=== PATIENT | female | born 1945 | race Caucasian/White ===

== ENCOUNTER → 2016-03-26 | Outpatient (CLI) | payer MEDICARE, MEDICAID ==
[~2016-03-26] MED LIST: /ADVA50050 IN; BABY81CH OR; CULTURELLE PO; CULTURELLE PR; LEVO100T7 OR; LEVO112T OR; NITR0.4S SL; PAROXETINE HCL PO; RANI150C OR; ZOCO40TA OR; [UNRECOGNIZED DRUG - OTHER]; [UNRECOGNIZED DRUG - OTHER] INH; [UNRECOGNIZED DRUG - OTHER] PO
[2016-03-26 18:22] LABS: CREATININE FOR GFR 1.11 MG/DL (0.55-1.02); GLOMERULAR FILTRATION RATE 51.7 (>39)
== END ==
LOC: M SMT 13:37
PROVIDERS: ATTEND Pain Medicine Interventional Pain Medicine
DX: M48.06 Spinal stenosis, lumbar region (principal); M96.1 Postlaminectomy syndrome, not elsewhere classified; M43.16 Spondylolisthesis, lumbar region; M47.816 Spondylosis without myelopathy or radiculopathy, lumbar region; M51.36 Other intervertebral disc degeneration, lumbar region

== ENCOUNTER → 2016-04-24 | Outpatient (CLI) | payer MEDICARE, MEDICAID ==
[~2016-04-24] VITALS: Ht 160 cm; Wt 97.5 kg
[~2016-04-24] MED LIST changes: +ADV250INH INH; +AMLO5TAB2 PO; +ASPI81TA21 PO; +ATOR40TA PO; +BUSP5TA PO; +CULT10CA2 PO; +FERR325T PO; +FISH1000 PO; +FLON1SPR; +GLIM2TAB PO; +IMODLIQ6 PO; +LEVO100T5 PO; +LIDOCAINE 2% INJ 100 MG/5 ML SDV (FOR ANES.) As Ordered ONE; +NEUR100C PO; +NS 1,000 ML IV SCH; +OMEP40CA2 PO; +PROPOFOL 200 MG/20 ML VIAL As Ordered ONE; +RAMI10CA PO; +SLOWTAB2 PO; +TIZA4CAP3 PO; +VENL75TA2 PO; +VITA10006 PO; +VITA100072 PO; +VITA200016 PO; +[UNRECOGNIZED DRUG - CODE] PO; +fentaNYL 100 MCG/2 ML INJECTION (J3010) As Ordered ONE
--- NOTE | 2016-04-24 15:58 | ROOR ---
Patient Name: Enriqueta Shook Procedure Date: 04/24/2016 3:27 PM Date of : 1945 Age: 71 Room: [facility] Gender: Female Note Status: Finalized Procedure: Upper GI endoscopy Indications: Dysphagia, Gastroparesis Providers: Hernandez OQUENDO MD Referring MD: Linda MONTES DE OCA DO Requesting Provider: Medicines: Monitored Anesthesia Care Complications: No immediate complications. Procedure: Pre-Anesthesia Assessment: - The heart rate, respiratory rate, oxygen saturations, blood pressure, adequacy of pulmonary ventilation, and response to care were monitored throughout the procedure. The Endoscope was introduced through the mouth, and advanced to the second part of duodenum. The upper GI endoscopy was accomplished without difficulty. The patient tolerated the procedure well. Findings: A small area of extrinsic compression was found at the cricopharyngeus. The exam of the esophagus was otherwise normal. The scope was withdrawn. Dilation was performed in the entire esophagus with a Huston dilator with mild resistance at 56 Fr. The exam was otherwise without abnormality. Impression: - Mild extrinsic compression at the cricopharyngeus. - Dilation performed in the entire esophagus with 54 and 56 Huston dilator. - The examination was otherwise normal. - No specimens collected. Recommendation: - Observe patient's clinical course. - I anticipate no further need for intervention. - Gastroparesis diet: - Eat smaller, more frequent meals throughout the day. - Low fat diet. - Liquid/soft foods are tolerated better than solid foods. - Low fiber/well cooked vegetables are tolerated better than high fiber/fibrous foods/raw vegetables. - Avoid medications that inhibit gastric/intestinal motility such as narcotic medications. Hernandez Oquendo MD Hernandez OQUENDO MD 04/24/2016 3:57:53 PM This report has been signed electronically. Number of Addenda: 0 Note Initiated On: 04/24/2016 3:27 PM Estimated Blood Loss: Estimated blood loss: none.
[2016-04-24 16:16] VITALS: BP 137/62
== END | disposition home or self-care (01) ==
LOC: M OPP 14:09
PROVIDERS: ATTEND Internal Medicine Gastroenterology
DX: K22.2 Esophageal obstruction (principal); K31.84 Gastroparesis; I10 Essential (primary) hypertension; E78.00 Pure hypercholesterolemia, unspecified; E11.9 Type 2 diabetes mellitus without complications; D64.9 Anemia, unspecified; M19.90 Unspecified osteoarthritis, unspecified site; F33.9 Major depressive disorder, recurrent, unspecified; F41.9 Anxiety disorder, unspecified; J45.909 Unspecified asthma, uncomplicated; J44.9 Chronic obstructive pulmonary disease, unspecified; G47.30 Sleep apnea, unspecified; I25.2 Old myocardial infarction; Z86.73 Personal history of transient ischemic attack (TIA), and cerebral infarction without residual deficits; Z97.2 Presence of dental prosthetic device (complete) (partial); Z87.891 Personal history of nicotine dependence; Z79.899 Other long term (current) drug therapy; Z79.51 Long term (current) use of inhaled steroids; Z88.0 Allergy status to penicillin; Z88.1 Allergy status to other antibiotic agents; Z88.2 Allergy status to sulfonamides
CPT/HCPCS: 43235; 43450; 99156; 99157; J3010

== ENCOUNTER → 2016-06-02 | Outpatient (CLI) | payer MEDICARE, MEDICAID ==
[~2016-06-02] MED LIST changes: -LIDOCAINE 2% INJ 100 MG/5 ML SDV (FOR ANES.) As Ordered ONE; -NS 1,000 ML IV SCH; -PROPOFOL 200 MG/20 ML VIAL As Ordered ONE; -fentaNYL 100 MCG/2 ML INJECTION (J3010) As Ordered ONE
[2016-06-02 14:33] LABS: BASO % 0.5 % (0.0-1.0); EOS # 0.2 K/mm3 (0.0-0.50); EOS % 2.3 % (0.0-3.0); LARGE UNSTAINED CELL # 0.1 K/mm3 (0.0-0.4); LYMPH # 1.3 K/mm3 (1.5-4.5); LYMPH % 17.4 % (24.0-44.0); MEAN CORPUSCULAR HEMOGLOBIN 30.2 pg (27.0-33.0); MEAN CORPUSCULAR VOLUME 94.5 fl (80.0-96.0); MONO # 0.4 K/mm3 (0.0-0.8); MONO % 5.8 % (0.0-5.0); NEUTROPHILS # 5.3 K/mm3 (1.8-7.7); PLATELET COUNT, AUTOMATED 299 k/mm3 (150-450); RED CELL DISTRIBUTION WIDTH 13.5 % (11.5-14.5); WHITE BLOOD COUNT 7.2 K/mm3 (4.0-10.0)
[2016-06-02 14:38] LABS: ALBUMIN 3.3 GM/DL (3.2-5.2); ALKALINE PHOSPHATASE 100 U/L (45-117); ALT/SGPT 15 U/L (12-78); ANION GAP 9 MEQ/L (8-16); AST/SGOT 10 U/L (15-37); BILIRUBIN,TOTAL 0.3 MG/DL (0.2-1.0); BLOOD UREA NITROGEN 15 MG/DL (7-18); CALCIUM LEVEL 8.8 MG/DL (8.8-10.2); CARBON DIOXIDE LEVEL 26 MEQ/L (21-32); CHLORIDE LEVEL 107 MEQ/L (98-107); CHOLESTEROL LEVEL 144 MG/DL (<200); CREATININE FOR GFR 0.92 MG/DL (0.55-1.02); FREE T4 1.18 NG/DL (0.76-1.46); GLOMERULAR FILTRATION RATE > 60.0 (>39); GLUCOSE, FASTING 119 MG/DL (83-110); POTASSIUM SERUM 4.8 MEQ/L (3.5-5.1); SODIUM LEVEL 142 MEQ/L (136-145); TOTAL PROTEIN 6.6 GM/DL (6.4-8.2); TRIGLYCERIDES LEVEL 164 MG/DL (<150)
== END ==
LOC: M SMT 09:26
PROVIDERS: ATTEND Family Medicine
DX: Z00.00 Encounter for general adult medical examination without abnormal findings (principal); E11.42 Type 2 diabetes mellitus with diabetic polyneuropathy; E03.9 Hypothyroidism, unspecified

== ENCOUNTER 2016-06-23 20:48 | Emergency (ER) | payer MEDICARE, MEDICAID ==
[~2016-06-23] VITALS: Ht 160 cm; Wt 90.7 kg
[2016-06-23] MEDS ORDERED: [UNRECOGNIZED DRUG - CODE] PO (21:10)
[2016-06-23] MEDS ORDERED: LEVO750T33 PO (21:11)
[2016-06-23] MEDS ORDERED: IPRATROPIUM 0.5MG/ALBUTEROL 2.5MG INH SOL UD 3ML (DUONEB)(J7620) NEB ONE (22:45)
[2016-06-23] MEDS ORDERED: predniSONE 20 MG TAB PO ONE (23:45)
[2016-06-23] MEDS ORDERED: PRED10TA PO (23:45)
[2016-06-24 00:16] VITALS: BP 132/65
--- NOTE | 2016-06-24 08:55 | REP ---
CHEST X-RAY: Two views. HISTORY: Cough. Comparison chest x-ray February 26, 2016. FINDINGS: There has been progressive opacification in the right upper lobe infiltrate which is otherwise persistent when compared with the February 26, 2016 prior chest x-ray. There is some fullness in the right hilus and the findings are suspicious for right upper lobe malignancy with right hilar lymphadenopathy. Recommend chest CT, preferably with IV contrast for further evaluation. The left lung remains clear. Pleural angles are sharp. The heart is not enlarged. No significant bony abnormality is seen. IMPRESSION: Persistent, indeed progressive infiltrate right upper lobe with probable right hilar and/or mediastinal adenopathy. Recommend chest CT with IV contrast. Signed by Adrian Salcedo MD 06/24/2016 01:37 P
--- NOTE | 2016-06-25 07:10 | ED PDOC ---
Post-Departure Follow-Up dr novoa faxed formal report of cxr for fu Vin Teresa MD Jun 25, 2016 07:10
== END 2016-06-24 00:17 | disposition home or self-care (01) ==
LOC: M ED 22:03
DX: J20.9 Acute bronchitis, unspecified (principal); J44.1 Chronic obstructive pulmonary disease with (acute) exacerbation; I10 Essential (primary) hypertension; I51.9 Heart disease, unspecified; G47.30 Sleep apnea, unspecified; K58.9 Irritable bowel syndrome, unspecified; E11.9 Type 2 diabetes mellitus without complications; F17.200 Nicotine dependence, unspecified, uncomplicated; Z79.82 Long term (current) use of aspirin; Z79.899 Other long term (current) drug therapy; Z88.1 Allergy status to other antibiotic agents; Z88.0 Allergy status to penicillin; Z88.2 Allergy status to sulfonamides; Z88.4 Allergy status to anesthetic agent

== ENCOUNTER → 2016-07-16 | Outpatient (REF) | payer MEDICARE, MEDICAID ==
[~2016-07-16] MED LIST changes: +LEVO750T33 PO; +PRED10TA PO; +[UNRECOGNIZED DRUG - CODE] PO
[2016-07-16 20:04] LABS: MICROSCOPIC INDICATED? MAN YES (NO)
[2016-07-16 21:09] LABS: BACTERIA, URINE MOD AMOUNT; HYALINE CAST, URINE NONE SEEN /lpf (0-1); MICROSCOPIC EXAM PERFORMED; RBC, URINE 0-1 /hpf (0-3); SQUAMOUS EPITHELIAL CELL URINE SMALL AMOUNT /hpf (SMALL AMT); WBC, URINE 20-30 /hpf (0-3)
== END ==
LOC: M LAB REF 16:53
PROVIDERS: ATTEND Family Medicine
DX: N39.46 Mixed incontinence (principal); J44.1 Chronic obstructive pulmonary disease with (acute) exacerbation

== ENCOUNTER → 2016-07-21 | Outpatient (REF) | payer MEDICARE, MEDICAID ==
[2016-07-21 20:20] LABS: MICROSCOPIC INDICATED? MAN YES (NO)
[2016-07-21 20:28] LABS: BACTERIA, URINE LARGE AMOUNT; HYALINE CAST, URINE NONE SEEN /lpf (0-1); MICROSCOPIC EXAM PERFORMED; RBC, URINE 0-1 /hpf (0-3); SQUAMOUS EPITHELIAL CELL URINE SMALL AMOUNT /hpf (SMALL AMT); WBC, URINE TNTC /hpf (0-3)
== END ==
LOC: M LAB REF 17:02
PROVIDERS: ATTEND Family Medicine
DX: N39.46 Mixed incontinence (principal)

== ENCOUNTER → 2016-08-13 | Outpatient (CLI) | payer MEDICARE, MEDICAID ==
[~2016-08-13] MED LIST changes: +E-Z-PAQUE 96% w/w SUSP 176GM BTL As Ordered ONE; +VARIBAR NECTAR 40% w/v 240ML SUSP BTL As Ordered ONE; +VARIBAR PUDDING 40% w/v 230ML TUBE As Ordered ONE
--- NOTE | 2016-08-13 16:23 | REP ---
COOKIE SWALLOW: The procedure was performed under the direct supervision of Dr. Salcedo. The procedure was performed with Nenita Aaron from speech pathology present. 5 mL aliquots of nectar, pudding, solid, and thin consistency barium was administered. There is no evidence of penetration or aspiration. A detailed report of this examination will be provided by speech pathology. 32 seconds of fluoroscopy time was utilized for this procedure. Reviewed by DAWNA Painting 08/13/2016 04:27 PEdited and Signed by Adrian Salcedo MD 08/13/2016 04:51 P
== END ==
LOC: M ST 10:38
PROVIDERS: ATTEND Internal Medicine Pulmonary Disease
DX: R05 Cough (principal); E11.42 Type 2 diabetes mellitus with diabetic polyneuropathy
CPT/HCPCS: 36415; 74230; 80053; 80061; 83036; 85025; 92611; G8996; G8997; G8998

== ENCOUNTER → 2016-08-13 | Outpatient (CLI) | payer MEDICARE, MEDICAID ==
[~2016-08-13] MED LIST changes: -E-Z-PAQUE 96% w/w SUSP 176GM BTL As Ordered ONE; -VARIBAR NECTAR 40% w/v 240ML SUSP BTL As Ordered ONE; -VARIBAR PUDDING 40% w/v 230ML TUBE As Ordered ONE
[2016-08-13 19:08] LABS: BASO % 0.6 % (0.0-1.0); EOS # 0.3 K/mm3 (0.0-0.50); LARGE UNSTAINED CELL # 0.1 K/mm3 (0.0-0.4); LYMPH # 1.4 K/mm3 (1.5-4.5); LYMPH % 15.7 % (24.0-44.0); MEAN CORPUSCULAR HEMOGLOBIN 30.1 pg (27.0-33.0); MEAN CORPUSCULAR HGB CONC 32.1 g/dl (32.0-36.5); MEAN CORPUSCULAR VOLUME 93.9 fl (80.0-96.0); MONO # 0.5 K/mm3 (0.0-0.8); MONO % 5.5 % (0.0-5.0); NEUTROPHILS # 6.1 K/mm3 (1.8-7.7); NEUTROPHILS % 73.1 % (36.0-66.0); PLATELET COUNT, AUTOMATED 337 k/mm3 (150-450); RED CELL DISTRIBUTION WIDTH 14.4 % (11.5-14.5); WHITE BLOOD COUNT 8.4 K/mm3 (4.0-10.0)
[2016-08-13 19:42] LABS: ALBUMIN 2.8 GM/DL (3.2-5.2); ALBUMIN/GLOBULIN RATIO 0.85 (1.00-1.93); BILIRUBIN,TOTAL 0.3 MG/DL (0.2-1.0); CALCIUM LEVEL 8.5 MG/DL (8.8-10.2); CREATININE FOR GFR 0.98 MG/DL (0.55-1.02); GLOMERULAR FILTRATION RATE 59.7 (>39); POTASSIUM SERUM 4.8 MEQ/L (3.5-5.1); TOTAL PROTEIN 6.1 GM/DL (6.4-8.2)
== END ==
LOC: M SMT 10:12
PROVIDERS: ATTEND Family Medicine
DX: E11.42 Type 2 diabetes mellitus with diabetic polyneuropathy (principal)

== ENCOUNTER → 2016-08-26 | Outpatient (REF) | payer MEDICARE, MEDICAID ==
[~2016-08-26] MED LIST changes: +ALBU17IN INH; +ALBU83IN INH; +AMLO2.5T PO; +CALC1TAB21 PO; +IMOD2TAB16 PO; +LEVO137T14 PO; +LEVOTAB10 PO; +NITR4TASL SL; +VENL75CA PO
[2016-08-26 17:55] LABS: INR 1.03
== END ==
LOC: M LAB REF 17:25
PROVIDERS: ATTEND Internal Medicine Pulmonary Disease
DX: R91.8 Other nonspecific abnormal finding of lung field (principal)

== ENCOUNTER 2016-09-02 10:26 | Inpatient (IN) | payer MEDICARE, MEDICAID ==
[~2016-09-02] VITALS: Ht 160 cm; Wt 94.5 kg
[2016-09-02] VITALS (10 sets, daily range): BP systolic 141–186; BP diastolic 65–87
[~2016-09-02 10:26] MED LIST changes: -ALBU17IN INH; -ALBU83IN INH; -AMLO2.5T PO; -ATOR40TA PO; +ATOR40TA75 PO; -CALC1TAB21 PO; +DAY1CAP PO; +FERR1TAB8 PO; -FERR325T PO; -IMOD2TAB16 PO; -LEVO137T14 PO; +LEVO750T13 PO; -LEVO750T33 PO; -LEVOTAB10 PO; -NITR4TASL SL; -PRED10TA PO; +PRED10TA2 PO; -VENL75CA PO; -[UNRECOGNIZED DRUG - CODE] PO
[2016-09-02] MEDS ORDERED: LIDOCAINE 1% MDV 20ML VIAL As Ordered ONE ×2 (11:13→14:57)
[2016-09-02] MEDS ORDERED: NORCO, ANEXSIA 5/325MG TABLET (HYDROcodone/ACETAMINOPHEN) PO PRN (14:15)
[2016-09-02] MEDS ORDERED: ONDANSETRON 4MG/2ML VIAL (J2405) IV PRN (14:15)
[2016-09-02] MEDS ORDERED: PERCOCET 5MG/325MG TAB PO PRN ×2 (14:15)
[2016-09-02] MEDS ORDERED: ACETAMINOPHEN TAB 650MG DOSE (2X325MG) PO PRN (14:15)
[2016-09-02] MEDS ORDERED: BISACODYL 10 MG SUPP PR PRN (14:15)
[2016-09-02] MEDS ORDERED: LEVALBUTEROL 1.25 MG/0.5 ML CONCENTRATE NEB NEB PRN (14:15)
[2016-09-02 14:27] LABS: ABG BASE EXCESS 1.3 (-2.0-2.0); ABG HCO3 26.9 MEQ/L (22.0-26.0); ABG PARTIAL PRESSURE CO2 46.7 mmHg (35.0-45.0); ABG PARTIAL PRESSURE O2 74.6 mmHg (75.0-100.0); ABG STANDARD HCO3 25.6 MEQ/L (22.0-26.0); ABG TOTAL CO2 28.4 MEQ/L (23.0-31.0); ABG pH (ARTERIAL) 7.379 UNITS (7.350-7.450)
[2016-09-02 14:43] LABS: RBC PLEURAL FLUID 11 (<10mm3 cells/uL); TNC PLEURAL FLUID 2062 cells/uL (0-20)
--- NOTE | 2016-09-02 14:45 | REP ---
CHEST X-RAY: TWO VIEWS. HISTORY: The patient is status post CT-guided needle biopsy right upper lobe mass and ultrasound-guided right thoracentesis. Comparison chest x-ray is from June 23, 2016. Comparison is made with CT study from August 21, [address] FINDINGS: There is a small to moderate right-sided pneumothorax. The hydrothorax is resolved radiographically. There is a large opacity with some volume loss in the right upper lobe. The left lung remains clear. IMPRESSION: Small to moderate right-sided pneumothorax. Large opacity with some degree of atelectasis in the right upper lobe. Dr. Daniel Martínez has been contacted and will assume the care of the patient in consideration of chest tube placement. Signed by Adrian Salcedo MD 09/02/2016 03:23 P
[2016-09-02 14:47] LABS: BF DIFF IF INDICATED? YES (NO)
[2016-09-02] MEDS ORDERED: MIDAZOLAM INJ 2 MG/2 ML VIAL (J2250) As Ordered ONE ×2 (14:56→14:57)
[2016-09-02 14:57] LABS: LDH, BODY FLUID 227 U/L (NOT ESTABLISHED)
[2016-09-02 15:01] LABS: CC BF DIFF EXAM CYTOCENTRIFUGE
[2016-09-02 15:04] LABS: ANION GAP 7 MEQ/L (8-16); BLOOD UREA NITROGEN 8 MG/DL (7-18); CALCIUM LEVEL 8.9 MG/DL (8.8-10.2); CARBON DIOXIDE LEVEL 29 MEQ/L (21-32); CHLORIDE LEVEL 107 MEQ/L (98-107); CREATININE FOR GFR 0.88 MG/DL (0.55-1.02); GLOMERULAR FILTRATION RATE > 60.0 (>39); GLUCOSE, FASTING 144 MG/DL (83-110); POTASSIUM SERUM 4.1 MEQ/L (3.5-5.1); SODIUM LEVEL 143 MEQ/L (136-145)
[2016-09-02 15:09] LABS: BASO # 0.1 K/mm3 (0.0-0.2); BASO % 0.7 % (0.0-1.0); EOS # 0.3 K/mm3 (0.0-0.50); EOS % 3.9 % (0.0-3.0); LARGE UNSTAINED CELL # 0.1 K/mm3 (0.0-0.4); LYMPH # 1.6 K/mm3 (1.5-4.5); LYMPH % 18.6 % (24.0-44.0); MEAN CORPUSCULAR HEMOGLOBIN 29.9 pg (27.0-33.0); MEAN CORPUSCULAR HGB CONC 32.2 g/dl (32.0-36.5); MONO # 0.6 K/mm3 (0.0-0.8); MONO % 6.5 % (0.0-5.0); NEUTROPHILS # 5.9 K/mm3 (1.8-7.7); NEUTROPHILS % 69.3 % (36.0-66.0); PLATELET COUNT, AUTOMATED 365 k/mm3 (150-450); RED CELL DISTRIBUTION WIDTH 14.8 % (11.5-14.5); WHITE BLOOD COUNT 8.4 K/mm3 (4.0-10.0)
[2016-09-02] MEDS ORDERED: LEVOTAB10 PO (15:46)
[2016-09-02] MEDS ORDERED: VENL75CA2 PO (15:46)
[2016-09-02] MEDS ORDERED: LEVO137T14 PO (15:46)
[2016-09-02] MEDS ORDERED: IMOD2TAB16 PO (15:46)
[2016-09-02] MEDS ORDERED: AMLO2.5T PO (15:46)
[2016-09-02] MEDS ORDERED: CALC1TAB21 PO (15:46)
[2016-09-02] MEDS ORDERED: NITR4TASL SL (15:49)
[2016-09-02] MEDS ORDERED: ALBU83IN INH (15:49)
[2016-09-02] MEDS ORDERED: ALBU17IN INH (15:49)
--- NOTE | 2016-09-02 15:50 | REP ---
Clinical: Status post chest tube placement. Comparison: 09/02/1978 01:30 p.m. Findings: Right apical chest tube is identified and the previously noted right-sided pneumothorax has resolved. Right upper lobe opacity/mass identified along with underlying chronic interstitial changes. Cardiac silhouette is normal. Left hemithorax appears clear. Skeletal structures intact. Impression: Re-expansion to the right pneumothorax with right apical chest tube in satisfactory position. Signed by Hans Simeon MD 09/02/2016 03:42 P
[2016-09-02] MEDS ORDERED: ALBUTEROL 90 MCG/ACT 8GM HFA INHALER INH PRN (16:15)
[2016-09-02] MEDS ORDERED: NITROGLYCERIN 0.4 MG SUBL TABLET SL PRN (16:15)
[2016-09-02] MEDS ORDERED: FLUTICASONE PROP 0.05% NASAL SPRAY 16 GM (FLONASE) PRN (16:15)
[2016-09-02] MEDS: MOM 30ML SUSPENSION UDC PO SCH (16:17)
[2016-09-02] MEDS ORDERED: DEXTROSE 50% 50 ML SYRINGE IV PRN (16:30)
[2016-09-02] MEDS ORDERED: GLUCOSE 4 GM CHEW TABLET PO PRN (16:30)
[2016-09-02] MEDS ORDERED: GLUCAGON FOR INJ 1 MG VIAL (J1610) SC PRN (16:30)
[2016-09-02] MEDS: PANTOPRAZOLE 40MG TAB (PROTONIX) PO SCH (16:30)
[2016-09-02] MEDS: KETOROLAC 30 MG/ML VIAL (J1885) IV SCH ×2 (16:31→20:21)
[2016-09-02] MEDS: KCL 20MEQ IN D5/NS 1000ML 1,000 ML IV SCH (16:32)
--- NOTE | 2016-09-02 16:46 | REP ---
CT GUIDED NEEDLE BIOPSY OF A RIGHT UPPER LOBE LUNG MASS: The procedure was performed by DAWNA Mclean under the direct supervision of Dr. Salcedo. The procedure with its potential risks and complications were discussed with the patient. Informed consent was obtained both verbally and written. The patient was positioned supine on the CT table. CT guidance was used to localize the mass. Following universal protocol, patient and site verification was performed with a time out prior to the procedure. The skin was cleansed with Chloraprep. 10 mL of 1% Lidocaine was used as a local anesthetic. A small knick was made and the biopsy device guide needle was directed to the edge of the mass. The [employer] biopsy device was used to obtain 4 core biopsy specimens. Upon successful completion of the biopsy a small pneumothorax was noted prior to removing the biopsy guide needle. A 60 mL syringe was used to try and suction the air out of the pneumothorax. After the biopsy needle was removed a small pneumothorax was still noted on the postprocedure CT exam. The wound was cleaned and sterile gauze and a bandage were applied to the biopsy site. Post lung biopsy the patient was taken to an ultrasound procedure room where a Thoracentesis was to be performed. Upon successful completion of both procedures the patient returned with the nurse to the holding area for monitoring post procedure. Reviewed by DAWNA Loza 09/03/2016 11:04 AEdited and Signed by Ardian Salcedo MD 09/03/2016 03:39 P
--- NOTE | 2016-09-02 16:52 | REP ---
RIGHT LUNG THORACENTESIS: The procedure was performed by [facility], under the direct supervision of Dr Salcedo. After the explanation of the risk, benefits, alternatives, and possible complications, written and verbal informed consent were obtained from the patient. The patient was identified in the ultrasound suite and placed in the seated position. The posterior thorax was interrogated with ultrasound. The right thorax demonstrated a medium fluid collection. An appropriate site was chosen for needle entry and this area was marked, prepped and draped in the usual sterile fashion. Local infiltrative anesthesia was achieved with 1% Xylocaine. A 19-gauge centesis catheter was advanced into the pleural cavity under continuous negative pressure until serous fluid was aspirated. The needle was removed and the catheter was advanced. Approximately 820 mL of red fluid were removed. The catheter was then removed. Hemostasis was achieved and a soft dressing was applied to the entry site. The patient tolerated the procedure well. Upon review of the post procedural chest x-ray a moderate sized pneumothorax was noted. Dr. Martínez, thoracic surgeon, was consulted about this and the patient was moved over to his service for chest tube placement. He will monitor and followup with the patient. Reviewed by DAWNA Loza 09/03/2016 11:06 AEdited and Signed by Adrian Salcedo MD 09/03/2016 03:40 P
[2016-09-02] MEDS ORDERED: LIDOCAINE 1% MDV 20ML VIAL SC ONE (17:00)
[2016-09-02] MEDS ORDERED: MIDAZOLAM INJ 2 MG/2 ML VIAL (J2250) IV ONE (17:00)
[2016-09-02] MEDS: HumaLOG INSULIN (NovoLOG) PER UNIT SC SCH ×2 (17:38→21:00)
[2016-09-02] MEDS: LEVALBUTEROL 1.25 MG/0.5 ML CONCENTRATE NEB NEB SCH (19:29)
[2016-09-02] MEDS: ADVAIR DISKUS 250/50 INH PWD INH SCH (19:29)
[2016-09-02] MEDS: DOCUSATE SODIUM 100 MG CAP PO SCH (20:19)
[2016-09-02] MEDS: FERROUS SULFATE 325MG TAB PO SCH (20:20)
[2016-09-02] MEDS: OMEPRAZOLE 20 MG CAP PO SCH (20:20)
[2016-09-02] MEDS: LOPERAMIDE 2 MG CAP PO SCH (20:20)
[2016-09-02] MEDS: ATORVASTATIN 20 MG TAB PO SCH (20:20)
[2016-09-02] MEDS: HEPARIN SOD (PORCINE) 5000 UNITS/ML VIAL SC SCH (20:21)
[2016-09-03] MEDS: VENLAFAXINE **XR** 75MG CAPSULE PO SCH ×2 (00:15→21:41)
[2016-09-03] MEDS: LEVALBUTEROL 1.25 MG/0.5 ML CONCENTRATE NEB NEB SCH ×4 (01:20→19:15)
[2016-09-03 03:30] VITALS: BP 138/66
[2016-09-03] MEDS: KETOROLAC 30 MG/ML VIAL (J1885) IV SCH ×4 (03:54→21:42)
[2016-09-03] MEDS: KCL 20MEQ IN D5/NS 1000ML 1,000 ML IV SCH (03:55)
[2016-09-03 04:56] LABS: BASO % 0.3 % (0.0-1.0); EOS # 0.2 K/mm3 (0.0-0.50); EOS % 2.4 % (0.0-3.0); LARGE UNSTAINED CELL # 0.1 K/mm3 (0.0-0.4); LARGE UNSTAINED CELL % 0.9 % (0.0-4.0); LYMPH # 1.5 K/mm3 (1.5-4.5); LYMPH % 17.5 % (24.0-44.0); MEAN CORPUSCULAR HEMOGLOBIN 30.3 pg (27.0-33.0); MEAN CORPUSCULAR HGB CONC 32.7 g/dl (32.0-36.5); MEAN CORPUSCULAR VOLUME 92.7 fl (80.0-96.0); MONO # 0.6 K/mm3 (0.0-0.8); NEUTROPHILS # 5.8 K/mm3 (1.8-7.7); NEUTROPHILS % 71.9 % (36.0-66.0); RED CELL DISTRIBUTION WIDTH 14.6 % (11.5-14.5)
[2016-09-03 05:05] LABS: PLATELET COUNT, AUTOMATED 263 k/mm3 (150-450)
[2016-09-03 05:18] LABS: CALCIUM LEVEL 8.5 MG/DL (8.8-10.2); CREATININE FOR GFR 0.98 MG/DL (0.55-1.02); GLOMERULAR FILTRATION RATE 59.7 (>39); POTASSIUM SERUM 3.9 MEQ/L (3.5-5.1)
[2016-09-03] MEDS: LEVOTHYROXINE 137MCG TABLET (0.137MG) PO SCH (05:51)
[2016-09-03 06:01] LABS: ABG BASE EXCESS 0.1 (-2.0-2.0); ABG HCO3 25.3 MEQ/L (22.0-26.0); ABG PARTIAL PRESSURE CO2 43.5 mmHg (35.0-45.0); ABG PARTIAL PRESSURE O2 79.6 mmHg (75.0-100.0); ABG STANDARD HCO3 24.5 MEQ/L (22.0-26.0); ABG TOTAL CO2 26.7 MEQ/L (23.0-31.0); ABG pH (ARTERIAL) 7.383 UNITS (7.350-7.450)
[2016-09-03 08:00] VITALS: BP 135/65
--- NOTE | 2016-09-03 08:02 | HPE ---
DATE OF ADMISSION: 09/02/2016 Patient is seen at the request of Dr. Salcedo of radiology for a pneumothorax after a needle biopsy of her right lung. HISTORY OF PRESENT ILLNESS: Patient is a 71-year-old white female who underwent a needle biopsy today of a right upper lobe lung mass. She ended up with a pneumothorax. In addition to the parenchymal biopsy, she underwent a thoracentesis under image guidance. Patient is a 71-year-old white female who states that she has been coughing for the past 3 months with syncopal episodes. These syncopal episodes have occurred on prior occasions for the past 3 years with coughing. She states that she has gone through an extensive syncope workup including Holter monitor and an implanted freight booker chip without any results. Her syncopal episodes are such that she had a compression fracture of her vertebra sustained in 2014 after becoming unconscious during a paroxysmal coughing spell. She brings up white colored sputum. She has not had any fever or chills but in the last 3 weeks, she has had more night sweats. She is eating well. She has been able to maintain her weight. She has had no pain prior to today after her pneumothorax. There has been no dysphagia and in fact, she is going through a swallowing study and there has been no aspiration. She complains of shortness of breath now but also in the last 3 weeks, she is becoming more progressively short of breath. This patient gives me a fairly lucent history, however, I think that it is incomplete. When she was last in the emergency room on 06/23/2016, there is freddie little history other than her cough and passing out. I cannot really tell from the ER record what the thought process was. Primary impression at that time was acute bronchitis and asthma. She states she has had multiple transient ischemic attacks (TIA)s in the past, one of which affected her right arm which has some residual weakness. It is notable that there is a cognitive dysfunction that she gives as an example of being able to write a check but not being able to record it in the check register. She is on a variety of medications at this time which have not been verified. In that emergency room visit on 06/23/2016, she was on Synthroid, glimepiride, amlodipine, Ramipril indicative of past medical history of hypothyroidism, diabetes, hypertension, gastroesophageal reflux disease, depression being on Venlafaxine and buspirone. I will have all those medication verified. She now complains of some pain with inspiration, not being able to take a deep breath secondary to the pain after the needle biopsy. PAST MEDICAL HISTORY: Diabetes. Hypertension. Gastroesophageal reflux disease. Depression. Hypothyroidism. Chronic obstructive pulmonary disease (COPD). Sleep apnea. Irritable bowel syndrome. Multiple transient ischemic attacks (TIA)s. Hyperlipidemia. PAST SURGICAL HISTORY: Cholecystectomy. Some type of back surgery. Tonsillectomy. Hysterectomy. Tubal ligation. Bilateral cataracts. ALLERGIES: She is listed as having allergies to ERYTHROMYCIN, NITROFURANTOIN, PENICILLINS, PROCAINE, SULFA DRUGS, TETRACYCLINE. CHILD HISTORY: She has been to [place]. There is no foreign travel. EXPOSURES: No dogs, cats or birds at the present time. HABITS: Smokes one pack per day for over 30 years. Did quit in July but resumed. Does not drink alcohol and no elicit drugs. REVIEW OF SYSTEMS: Constitutional: See history of present illness. Eyes: Has had bilateral cataracts without transient monocular blindness or prior jaundice. Nose: Without epistaxis. Mouth has dentures. Respiratory: See history of present illness. Does note wheezing quite often. Cardiac: Without paroxysmal or nocturnal dyspnea or orthopnea. Occasionally has peripheral edema. States that she had a myocardial infarction approximately 30 years ago diagnosed by EKG. GI: Has irritable bowel syndrome with diarrhea. No nausea or vomiting. She does not choke with eating. No melena or hematochezia. : Without dysuria or hematuria. Without prior renal stones. Neurologic: With multiple transient ischemic attacks and stroke in the past. Also syncope. Has residual right arm weakness. Endocrine: With hypothyroidism and with diabetes. Lymphatics: Without lumps, bumps in neck, axilla or groin that she has noted. Psychiatric: With depression treated without psychoses. PHYSICAL EXAMINATION: Her vital signs show a temperature of 98.9, heart rate of 82 in sinus rhythm, respiratory rate of 22 without the use of accessory muscles who is 95% saturated on nasal cannula 2 liters and whose blood pressure is 177/74. Eyes: Pupils equal, round, and reactive to light. Extraocular motor intact. Sclera anicteric. Nose without deformity. Head normocephalic Mouth show her mucous membranes to be pink and moist. Lips and commissures without lesions, no thrush. She has dentures in place. Neck is supple, there is no jugular venous distention. No subcutaneous emphysema. Trachea is midline. There is no lymphadenopathy or thyromegaly. She has 2+ carotid upstrokes without bruits. Lungs show bilateral wheezing on either side with decreased breath sounds on the right side in the upper hemithorax. Percussion notes are full to the diaphragm. There is no subcutaneous emphysema. Cardiac exam is without murmurs, clicks, gallops or rubs. I cannot feel her PMI. S1 and S2 are normal. Abdomen is soft, nontender, bowel sounds are positive. There is no hepatomegaly. No CVA tenderness. Extremities show no pretibial edema. No calf tenderness. No differential swelling of the upper extremities. Skin is warm, dry and perfused without cyanosis or mottling including that of the nail beds and knees. Neuro shows II through XII intact with gross motor and gross sensation intact. Gait is not tested. Psychiatric shows her to be awake and alert, oriented times three with appropriate mood and affect and conversational. Her white count today is 8.4 with hemoglobin and hematocrit of 12.4 and 38.6 and a platelet count of 365. Differential shows 69% neutrophils, 18% lymphocytes, 6 % monocytes. There are no immature forms, no toxic granulations. Her blood gases today show a pH of 7.37, pCO2 of 46 and pO2 of 74 with a base excess of 1.3 on the above nasal cannula. Her electrolytes are normal with a BUN and creatinine of 8 and 0.88, glucose of 144 with a calcium of 8.9. Her chest x-ray shows a 40% pneumothorax confined to the upper lobe. She looks to have an opacity in the right upper lobe. A chest x-ray taken on 06/23/2016 shows a right upper lobe infiltrate. There is no infiltrate seen posteriorly on the lateral film. Costophrenic angles are sharp. There is no effusion. I do not see in the PACS system a diagnostic CT. The procedure CT shows a right pleural effusion with what looks to be a mass or postobstructive pneumonia. The images do not show enough detail for interpretation. Further the study is only confined to the area of interest for the biopsy. She may have an enlarged subcarinal node. There are emphysematous changes and there are multiple nodules on the right and left side. IMPRESSION: 1. Postbiopsy right pneumothorax. 2. Paroxysmal cough. 3. Syncope with cough. 4. Multiple pulmonary nodules in addition to the right upper lobe mass. 5. Pleural effusion drained today in x-ray. 6. Hypothyroidism. 7. Depression. 8. Hypertension. 9. Irritable bowel syndrome. 10. Status post multiple transient ischemic attacks (TIA)s and a cerebrovascular accident (CVA) in the remote past. PLAN AND DISCUSSION: Her most acute problem right now is her pneumothorax and I will place a chest tube. I am not sure whether we are going to get to the bottom of her syncope with cough as it has been extensively worked up. I suspect it is a vasovagal phenomenon. My suspicious is that with all the multiple nodules which indeed look spiculated, it could turn to be metastatic carcinoma. Speaking with Dr. Salcedo, he thinks that he got good samples of tissue. JAIRO
[2016-09-03] MEDS: ADVAIR DISKUS 250/50 INH PWD INH SCH ×2 (08:40→20:24)
--- NOTE | 2016-09-03 08:52 | REP ---
Clinical: Follow up pneumothorax. Comparison: 09/02/2016. Findings: Right apical chest tube in stable position. No obvious, significant residual right pneumothorax is appreciated. Dense right upper lobe opacity and diffuse increased interstitial and ground-glass opacities are similar to prior examination. Cardiac silhouette is normal. Skeletal structures stable. Impression: 1. No obvious significant residual right apical pneumothorax appreciated. 2. Dense right upper lobe opacity and diffuse increased interstitial and subtle ground-glass opacities similar to prior examination. Signed by Hans Simeon MD 09/03/2016 08:44 A
[2016-09-03] MEDS: VITAMIN D 1,000 INTERNATIONAL UNITS TABLET PO SCH (08:54)
[2016-09-03] MEDS: ASPIRIN 81 MG ENTERIC TAB PO SCH (08:54)
[2016-09-03] MEDS: CYANOCOBALAMIN 500 MCG TAB PO SCH (08:54)
[2016-09-03] MEDS: LOPERAMIDE 2 MG CAP PO SCH ×2 (08:56→21:41)
[2016-09-03] MEDS: FERROUS SULFATE 325MG TAB PO SCH ×2 (08:56→21:41)
[2016-09-03] MEDS: HumaLOG INSULIN (NovoLOG) PER UNIT SC SCH ×4 (08:57→21:00)
[2016-09-03] MEDS: HEPARIN SOD (PORCINE) 5000 UNITS/ML VIAL SC SCH ×2 (08:58→21:42)
[2016-09-03] MEDS: OMEPRAZOLE 20 MG CAP PO SCH (09:00)
[2016-09-03] MEDS: DOCUSATE SODIUM 100 MG CAP PO SCH ×2 (09:00→21:00)
[2016-09-03] MEDS: PANTOPRAZOLE 40MG TAB (PROTONIX) PO SCH (09:00)
[2016-09-03] MEDS: MOM 30ML SUSPENSION UDC PO SCH (09:00)
--- NOTE | 2016-09-03 10:01 | RO ---
DATE OF PROCEDURE: 09/02/2016 PREPROCEDURE DIAGNOSIS: Right pneumothorax status post lung biopsy. POSTPROCEDURE DIAGNOSIS: Right pneumothorax status post lung biopsy. SURGEON: Daniel Martínez MD PROCEDURE: Insertion of right anterior chest tube. ANESTHESIA: DESCRIPTION OF PROCEDURE: Under satisfactory conscious sedation achieved with 3 mg of Versed, the patient was prepped and draped in the usual sterile fashion. Incision was made over the second rib anteriorly on the right side. Incision was made after infiltrating the skin and subcutaneous tissue, muscle, and pleura with 1% Xylocaine. A tunnel was created in the chest without difficulty, and a #20 chest tube was placed. The chest tube was secured to the chest wall with #2 Tevdek suture and connected to the Pleur-evac. The patient tolerated the procedure well, and a chest x-ray is pending.
[2016-09-03 12:00] VITALS: BP 123/63
[2016-09-03 16:00] VITALS: BP 137/64
[2016-09-03 20:17] VITALS: BP 146/72
[2016-09-03] MEDS: ATORVASTATIN 20 MG TAB PO SCH (21:41)
[2016-09-04] VITALS (7 sets, daily range): BP systolic 129–174; BP diastolic 65–86
[2016-09-04] MEDS: LEVALBUTEROL 1.25 MG/0.5 ML CONCENTRATE NEB NEB SCH ×4 (01:54→20:00)
[2016-09-04] MEDS: KETOROLAC 30 MG/ML VIAL (J1885) IV SCH ×4 (02:16→20:51)
[2016-09-04 05:43] LABS: BASO % 0.5 % (0.0-1.0); EOS # 0.3 K/mm3 (0.0-0.50); LARGE UNSTAINED CELL # 0.1 K/mm3 (0.0-0.4); LARGE UNSTAINED CELL % 1.1 % (0.0-4.0); LYMPH # 1.5 K/mm3 (1.5-4.5); LYMPH % 19.7 % (24.0-44.0); MEAN CORPUSCULAR HEMOGLOBIN 29.5 pg (27.0-33.0); MEAN CORPUSCULAR HGB CONC 31.7 g/dl (32.0-36.5); MONO # 0.5 K/mm3 (0.0-0.8); NEUTROPHILS # 4.9 K/mm3 (1.8-7.7); NEUTROPHILS % 67.7 % (36.0-66.0); PLATELET COUNT, AUTOMATED 291 k/mm3 (150-450); RED CELL DISTRIBUTION WIDTH 14.9 % (11.5-14.5); WHITE BLOOD COUNT 7.3 K/mm3 (4.0-10.0)
[2016-09-04] MEDS: LEVOTHYROXINE 137MCG TABLET (0.137MG) PO SCH (05:55)
[2016-09-04] MEDS: ADVAIR DISKUS 250/50 INH PWD INH SCH ×2 (07:02→20:29)
[2016-09-04 07:08] LABS: ANION GAP 8 MEQ/L (8-16); BLOOD UREA NITROGEN 11 MG/DL (7-18); CALCIUM LEVEL 8.5 MG/DL (8.8-10.2); CARBON DIOXIDE LEVEL 27 MEQ/L (21-32); CHLORIDE LEVEL 110 MEQ/L (98-107); GLOMERULAR FILTRATION RATE > 60.0 (>39); GLUCOSE, FASTING 133 MG/DL (83-110); POTASSIUM SERUM 3.8 MEQ/L (3.5-5.1); SODIUM LEVEL 145 MEQ/L (136-145)
--- NOTE | 2016-09-04 07:38 | IPN ---
DATE: 09/03/2016 Mrs. Shook . . . (cut off, can't remember). Never the less, she states she is breathing better. There is a cough without sputum production, however. Her pain is being well controlled at the chest tube insertion site. Her vital signs show a T-max of 97.5 with a heart rate that ranges between 83 and 76 in sinus rhythm. Respiratory rate of 18-20 without the use of accessory muscles, who is 94% saturated in room air. Blood pressure ranging between 135/65 to 137/64. Her intake and output over the past 24 hours has been recorded as 590 in and 375 out for a positivity of 215 mL. That just started from her admission in the afternoon. Her weight yesterday was 90.6 kg. Her weight is not yet recorded. On physical examination, her lungs show bilateral wheezing with equal breath sounds on either side. Wheezing is towards the end of expiration. Percussion note is full to the diaphragm. Cardiac exam is without murmurs, clicks, gallops or rubs. I cannot feel her point of maximum impulse (PMI). S1 and S2 are normal. Abdomen is soft and nontender. Bowel sounds are positive. There is no hepatomegaly. No CVA tenderness. Extremities still show no pretibial edema with no calf tenderness. No differential swelling of the upper extremities. Skin is warm, dry and perfused without cyanosis or mottling including that of the nail beds and knees. Neck is supple. There is no jugular venous distention. No subcutaneous emphysema. Trachea is midline. Mouth shows her mucous membranes to be pink and moist. Lips and commissures are without lesions. There is no thrush. Eyes show pupils to be equal and reactive. Extraocular movements intact. Sclerae nonicteric. Neurologic shows II-XII intact along with gross motor and gross sensation intact. Gait is not tested. Psychiatric showed her to be awake, alert and oriented times three with appropriate and affect and conversational. Her white count today is 8.0 with hemoglobin and hematocrit 11.0 and 33.5 down from 12.5 and 38.6. Platelet count is 263 and differential shows 71% neutrophils, 17% lymphocytes, 7% eosinophils. I cannot explain the hemoglobin and hematocrit by hemodilution at this point in time. Her electrolytes are essentially normal with a BUN and creatinine of 12 and 0.98, glucose of 160 and a calcium of 8.5. IMPRESSION: 1. Right upper lobe mass, pathology is pending. 2. Paroxysmal cough. 3. Syncope with cough. 4. Multiple pulmonary nodules in addition to the right upper lobe mass. 5. Pleural effusion drained yesterday in x-ray. 6. Hypothyroidism. 7. Depression. 8. Hypertension. 9. Irritable bowel syndrome. 10. Status post multiple transient ischemic attacks with a cerebral vascular accident in the remote past. PLAN AND DISCUSSION: She is still leaking and I will leave her on suction. Will continue to observe her air leak. When it stops, I will remove the chest tubes. It is way too early to consider talc pleurodesis. It should be noticed that her chest x-ray today show lung inflation to the chest wall. Right upper lobe mass is still present. Chest tube is in perfect position the apex. Other than the upper lobe mass, there are no other infiltrates. MTDD
[2016-09-04] MEDS: HEPARIN SOD (PORCINE) 5000 UNITS/ML VIAL SC SCH ×2 (08:30→20:46)
[2016-09-04] MEDS: HumaLOG INSULIN (NovoLOG) PER UNIT SC SCH ×4 (08:32→20:47)
[2016-09-04] MEDS: PANTOPRAZOLE 40MG TAB (PROTONIX) PO SCH (08:32)
[2016-09-04] MEDS: LOPERAMIDE 2 MG CAP PO SCH ×2 (08:32→20:47)
[2016-09-04] MEDS: VITAMIN D 1,000 INTERNATIONAL UNITS TABLET PO SCH (08:32)
[2016-09-04] MEDS: FERROUS SULFATE 325MG TAB PO SCH ×2 (08:33→20:46)
[2016-09-04] MEDS: ASPIRIN 81 MG ENTERIC TAB PO SCH (08:34)
[2016-09-04] MEDS: DOCUSATE SODIUM 100 MG CAP PO SCH ×2 (08:34→20:51)
[2016-09-04] MEDS: MOM 30ML SUSPENSION UDC PO SCH (08:34)
[2016-09-04] MEDS: CYANOCOBALAMIN 500 MCG TAB PO SCH (08:34)
--- NOTE | 2016-09-04 08:36 | REP ---
Clinical: Follow up pneumothorax. Technique: PA and lateral. Comparison: 09/03/2016. Findings: Right apical chest tube in stable position. A small residual right apical pneumothorax is appreciated. The right upper lobe mass / opacity unchanged. Diffuse chronic interstitial changes and possible superimposed atelectasis similar to prior examination. Small amount of subcutaneous emphysema along the right lateral chest wall noted. Skeletal structures intact. Impression: 1. Small residual right apical pneumothorax identified on current exam. 2. Small amount of subcutaneous emphysema. 3. Diffuse chronic interstitial changes with possible scattered atelectasis similar to prior examination. Signed by Hans Simeon MD 09/04/2016 08:28 A
--- NOTE | 2016-09-04 10:58 | IPN ---
DATE: 09/04/2016 Mrs. Shook still has an air leak. She is still putting out increased amounts of pleural fluid from the chest tube. We did get the final pathology back with regard to her pleural fluid and her needle biopsy. Both show metastatic adenocarcinoma. She therefore by definition has stage IV disease with pleura fluid involvement. See discussion below. Her vital signs show a maximum temperature (Tmax) of 98.9 with a heart rate that ranges between 85 and 79 in sinus rhythm. Respiratory rate that is constant at 18, who is 95-90% saturated on room air and whose blood pressure is ranging between 132/65to 150/69. Her intake and output over the past 24 hours has been recorded as 2540 in and 2680 out for a negativity of 140 mL. She has put out 480 mL from the chest tube and there is still an air leak. This morning over the last 8 hours she has put out 250 mL. Her weight today is 93.6 kg compared to 98.6 kg on admission. On physical examination, she has rales and rhonchi on the right side with a percussion note full to the diaphragm. Cardiac exam is without murmurs, clicks, gallops or rubs. I cannot feel her point of maximum impulse (PMI). S1 and S2 are normal. Abdomen is soft, nontender. Bowel sounds are positive. There is no hepatomegaly. No costovertebral angle (CVA) tenderness. Extremities show no pretibial edema, no calf tenderness. No differential swelling of the upper extremities. Skin is warm, dry and perfused without cyanosis or mottling including that of the nail beds and knees. Neck is supple. There is no jugular venous distention. No subcutaneous emphysema. Trachea is midline. Mouth shows her mucous membranes to be pink and moist. Lips and commissures are without lesions. There is no thrush. Eyes show pupils to be equal and reactive. Extraocular movements intact. Sclerae nonicteric. Neurologic shows II-XII intact along with gross motor and gross sensation intact. Gait is not tested. Psychiatric showed her to be awake, alert and oriented times three with appropriate and affect and conversational. Her white count today is 7.3, with hemoglobin and hematocrit of 11.2 and 35.3, with a platelet count of 291. Hemoglobin and hematocrit are stable. Differential shows 67% neutrophils, 19% lymphocytes, 7% monocytes. There are no immature forms, no toxic granulations. Her electrolytes are essentially normal with a BUN and creatinine of 11 and 0.90, glucose of 133 and a calcium of 8.5. Her chest x-ray shows the right upper lobe tumor. Costophrenic angles are sharp. Lung is fully expanded to the chest wall. There is some subcutaneous emphysema on the right-hand side. Chest tube is in good place at the apex of the lung. IMPRESSION: 1. Stage IV adenocarcinoma right lung. 2. Chronic obstructive pulmonary disease (COPD). 3. Hypertension. 4. Syncope with cough. 5. Paroxysmal cough. 6. Multiple pulmonary nodules in addition to the right upper lobe mass. 7. Pleural effusion drained in x-ray and continuing with the chest tube. 8. Hypothyroidism. 9. Depression. 10. Irritable bowel syndrome. 11. Status post multiple transient ischemic attacks with a cerebral vascular accident in the remote past. PLAN AND DISCUSSION: I have had a very long talk with Ms. Shook. Informing her of the diagnosis. I have indicated to her that this is stage IV disease and that it is not surgically amenable. We will refer her to oncology and radiation therapy. The immediate problem, however is her air leak and her increased pleural fluid output. The air leak will no doubt eventually stop, although I am not sure the pleural fluid output will stop. I will probably have to address the pleural fluid with PleurX catheter after it returns after removing the chest tube when the air leak stops. I will continue her chest tube suction.
[2016-09-04] MEDS: VENLAFAXINE **XR** 75MG CAPSULE PO SCH (20:46)
[2016-09-04] MEDS: ATORVASTATIN 20 MG TAB PO SCH (20:46)
--- NOTE | 2016-09-04 21:37 | REP ---
Clinical: History of lung cancer with possible metastatic disease. Technique: Standard pre and postcontrast MRI of the brain sequencing with 19 ml gadolinium based ProHance intravenous contrast material. Findings: The ventricles, sulci, and cisterns are symmetric and demonstrate age-related atrophic changes. Scattered T2-weighted high signal intensity foci and periventricular T2 signal intensity changes are consistent with microvascular ischemic disease. Empty sella syndrome noted. No evidence for acute infarction, hemorrhage, mass lesions, metastatic disease or enhancing abnormalities. Impression: 1. Age-related atrophy and microvascular ischemic changes with periventricular leukomalacia. 2. Empty sella syndrome. 3. No evidence for acute intracranial process including infarction, hemorrhage, mass lesion or metastatic disease. Signed by Hans Simeon MD 09/04/2016 09:29 P
[2016-09-05] VITALS: BP 159/87
[2016-09-05] MEDS: LEVALBUTEROL 1.25 MG/0.5 ML CONCENTRATE NEB NEB SCH ×4 (01:50→20:00)
[2016-09-05] MEDS: KETOROLAC 30 MG/ML VIAL (J1885) IV SCH ×4 (03:00→21:00)
[2016-09-05 04:00] VITALS: BP 143/77
[2016-09-05 05:31] LABS: BASO % 0.4 % (0.0-1.0); EOS # 0.4 K/mm3 (0.0-0.50); EOS % 4.2 % (0.0-3.0); LARGE UNSTAINED CELL # 0.1 K/mm3 (0.0-0.4); LARGE UNSTAINED CELL % 1.2 % (0.0-4.0); LYMPH # 1.5 K/mm3 (1.5-4.5); MEAN CORPUSCULAR HEMOGLOBIN 29.9 pg (27.0-33.0); MEAN CORPUSCULAR HGB CONC 32.2 g/dl (32.0-36.5); MEAN CORPUSCULAR VOLUME 92.8 fl (80.0-96.0); MONO # 0.6 K/mm3 (0.0-0.8); MONO % 7.1 % (0.0-5.0); NEUTROPHILS % 71.1 % (36.0-66.0); PLATELET COUNT, AUTOMATED 315 k/mm3 (150-450); RED CELL DISTRIBUTION WIDTH 14.9 % (11.5-14.5); WHITE BLOOD COUNT 8.4 K/mm3 (4.0-10.0)
[2016-09-05 05:40] LABS: ANION GAP 7 MEQ/L (8-16); BLOOD UREA NITROGEN 8 MG/DL (7-18); CALCIUM LEVEL 8.7 MG/DL (8.8-10.2); CARBON DIOXIDE LEVEL 29 MEQ/L (21-32); CHLORIDE LEVEL 106 MEQ/L (98-107); CREATININE FOR GFR 0.89 MG/DL (0.55-1.02); GLOMERULAR FILTRATION RATE > 60.0 (>39); GLUCOSE, FASTING 130 MG/DL (83-110); POTASSIUM SERUM 4.1 MEQ/L (3.5-5.1); SODIUM LEVEL 142 MEQ/L (136-145)
[2016-09-05] MEDS: LEVOTHYROXINE 137MCG TABLET (0.137MG) PO SCH (06:25)
[2016-09-05 08:00] VITALS: BP 140/78
[2016-09-05] MEDS: ADVAIR DISKUS 250/50 INH PWD INH SCH ×2 (08:07→20:16)
[2016-09-05] MEDS: ASPIRIN 81 MG ENTERIC TAB PO SCH (08:36)
[2016-09-05] MEDS: LOPERAMIDE 2 MG CAP PO SCH ×2 (08:36→21:36)
[2016-09-05] MEDS: HumaLOG INSULIN (NovoLOG) PER UNIT SC SCH ×4 (08:36→21:00)
[2016-09-05] MEDS: VITAMIN D 1,000 INTERNATIONAL UNITS TABLET PO SCH (08:36)
[2016-09-05] MEDS: PANTOPRAZOLE 40MG TAB (PROTONIX) PO SCH (08:37)
[2016-09-05] MEDS: FERROUS SULFATE 325MG TAB PO SCH ×2 (08:37→21:36)
[2016-09-05] MEDS: CYANOCOBALAMIN 500 MCG TAB PO SCH (08:37)
[2016-09-05] MEDS: MOM 30ML SUSPENSION UDC PO SCH (08:38)
[2016-09-05] MEDS: HEPARIN SOD (PORCINE) 5000 UNITS/ML VIAL SC SCH ×2 (08:38→21:36)
[2016-09-05] MEDS: DOCUSATE SODIUM 100 MG CAP PO SCH ×2 (08:38→21:00)
--- NOTE | 2016-09-05 08:43 | REP ---
Clinical: Follow up pneumothorax. Technique: PA and lateral. Comparison: 09/04/2016. Findings: Right apical chest tube in stable position. Small residual right apical pneumothorax again identified and unchanged. Right upper lobe opacity, mediastinal opacities and right-sided pleuroparenchymal changes are similar to prior examination. A small amount of subcutaneous emphysema overlying the right chest wall again noted. Left hemithorax clear. Visualized cardiac silhouette normal. Skeletal structures intact. Impression: No significant change from prior examination. Small residual right apical pneumothorax. Pleuroparenchymal changes involving the right hemithorax are essentially stable. Signed by Hans Simeon MD 09/05/2016 08:35 A
--- NOTE | 2016-09-05 10:59 | IPN ---
DATE: 09/05/2016 Mrs. Shook still has her air leak with forceful cough. I have taken her off suction to see if the sunction is propagating the air leak. Her vital signs show a maximum temperature (Tmax) of 97.9 with a heart rate that ranges between 88 and 76 in sinus rhythm. Respiratory rate of 18 to 20 without the use of accessory muscles, who is 98-92% saturated on room air and whose blood pressure is ranging between 143/77 to 159/87. Her intake and output over the past 24 hours has been recorded as 1700 in and 2712 out for a negativity of 1000 mL. She put out 362 mL from the chest tube which is less than yesterday of 480 mL. Her weight today is 92.2 kg compared to 93.6 kg yesterday. On physical examination, she has equal breath sounds on either side. Percussion was full to the diaphragm. I do not hear any wheezing today. Cardiac exam is without murmurs, clicks, gallops or rubs. I cannot feel her point of maximum impulse (PMI). S1 and S2 are normal. Abdomen is soft, nontender. Bowel sounds are positive. There is no hepatomegaly. No costovertebral angle (CVA) tenderness. Extremities show trace pretibial edema, no calf tenderness. No differential swelling of the upper extremities. Skin is warm, dry and perfused without cyanosis or mottling including that of the nail beds and knees. Neck is supple. There is no jugular venous distention. No subcutaneous emphysema. Trachea is midline. Mouth shows her mucous membranes to be pink and moist. Lips and commissures are without lesions. There is no thrush. Eyes show pupils to be equal and reactive. Extraocular movements intact. Sclerae nonicteric. Neurologic shows II-XII intact along with gross motor and gross sensation intact. Gait is not tested. Psychiatric showed her to be awake, alert and oriented times three with appropriate and affect and conversational. Her white count today is 8.4, with hemoglobin and hematocrit of 11.8 and 36.6 respectfully, with a platelet count of 315. Differential shows 71% neutrophils, 16% lymphocytes, 7% monocytes. There are no immature forms, no toxic granulations. Her electrolytes are normal with a BUN and creatinine of 8 and 0.89 with a glucose of 130 and a calcium of 8.7. Her chest x-ray today shows remarkable expand to the chest wall. Costophrenic angles are sharp. The subcutaneous emphysema seems to be disappating. Chest tube is in good place and the right upper lobe lesion is of course is still seen. IMPRESSION: 1. Stage IV adenocarcinoma right lung. 2. Chronic obstructive pulmonary disease (COPD). 3. Hypertension. 4. Syncope with cough. 5. Paroxysmal cough. 6. Multiple pulmonary nodules in addition to the right upper lobe mass. 7. Pleural effusion drained in x-ray and continuing with the chest tube. 8. Hypothyroidism. 9. Depression. 10. Irritable bowel syndrome. 11. Status post multiple transient ischemic attacks with a cerebral vascular accident in the remote past. 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 PLAN AND DISCUSSION: I will take her off suction today. We will continue to monitor chest x-rays. Her [id number] is here and I have again have had a long discussion about her diagnosis. She would be a radiation chemotherapy patient. She had a PET scan scheduled for Wednesday and if she is going to be considered for radiation we will need to know if there is any hypermetabolic uptake in the lymph nodes. Radiation oncology may want to include that in their soto. We will arrange for her to see oncology as an outpatient. Her main problem right now is her air leak. As soon as that stops we can remove the chest tube. I do suspect that her pleural effusion will continue and she will need a PleurX catheter which we will do as an outpatient basis.
[2016-09-05] MEDS: NICOTINE 21MG/24HR 1 EA TRANSDERMAL TD SCH (11:41)
[2016-09-05 12:00] VITALS: BP 110/57
[2016-09-05 16:00] VITALS: BP 129/72
[2016-09-05] MEDS: VENLAFAXINE **XR** 75MG CAPSULE PO SCH (21:36)
[2016-09-05] MEDS: ATORVASTATIN 20 MG TAB PO SCH (21:36)
[2016-09-06] VITALS (7 sets, daily range): BP systolic 116–160; BP diastolic 1–86
[2016-09-06] MEDS: LEVALBUTEROL 1.25 MG/0.5 ML CONCENTRATE NEB NEB SCH ×4 (01:25→20:00)
[2016-09-06] MEDS: KETOROLAC 30 MG/ML VIAL (J1885) IV SCH ×4 (02:19→21:07)
[2016-09-06] MEDS: LEVOTHYROXINE 137MCG TABLET (0.137MG) PO SCH (05:26)
[2016-09-06 05:54] LABS: BASO % 0.4 % (0.0-1.0); EOS # 0.4 K/mm3 (0.0-0.50); EOS % 4.3 % (0.0-3.0); LARGE UNSTAINED CELL # 0.1 K/mm3 (0.0-0.4); LARGE UNSTAINED CELL % 1.3 % (0.0-4.0); LYMPH % 19.1 % (24.0-44.0); MEAN CORPUSCULAR HEMOGLOBIN 30.1 pg (27.0-33.0); MEAN CORPUSCULAR HGB CONC 32.6 g/dl (32.0-36.5); MEAN CORPUSCULAR VOLUME 92.2 fl (80.0-96.0); MONO # 0.7 K/mm3 (0.0-0.8); MONO % 6.9 % (0.0-5.0); NEUTROPHILS # 6.6 K/mm3 (1.8-7.7); NEUTROPHILS % 67.9 % (36.0-66.0); PLATELET COUNT, AUTOMATED 375 k/mm3 (150-450); WHITE BLOOD COUNT 9.7 K/mm3 (4.0-10.0)
[2016-09-06 06:12] LABS: CALCIUM LEVEL 8.6 MG/DL (8.8-10.2); CREATININE FOR GFR 0.98 MG/DL (0.55-1.02); GLOMERULAR FILTRATION RATE 59.7 (>39); POTASSIUM SERUM 3.7 MEQ/L (3.5-5.1)
[2016-09-06] MEDS: ADVAIR DISKUS 250/50 INH PWD INH SCH ×2 (08:06→20:12)
[2016-09-06] MEDS: HEPARIN SOD (PORCINE) 5000 UNITS/ML VIAL SC SCH ×2 (08:41→21:07)
[2016-09-06] MEDS: FERROUS SULFATE 325MG TAB PO SCH ×2 (08:41→21:06)
[2016-09-06] MEDS: ASPIRIN 81 MG ENTERIC TAB PO SCH (08:42)
[2016-09-06] MEDS: PANTOPRAZOLE 40MG TAB (PROTONIX) PO SCH (08:42)
[2016-09-06] MEDS: LOPERAMIDE 2 MG CAP PO SCH ×2 (08:42→21:06)
[2016-09-06] MEDS: CYANOCOBALAMIN 500 MCG TAB PO SCH (08:42)
[2016-09-06] MEDS: VITAMIN D 1,000 INTERNATIONAL UNITS TABLET PO SCH (08:42)
[2016-09-06] MEDS: NICOTINE 21MG/24HR 1 EA TRANSDERMAL TD SCH (08:43)
[2016-09-06] MEDS: HumaLOG INSULIN (NovoLOG) PER UNIT SC SCH ×4 (08:43→21:00)
--- NOTE | 2016-09-06 08:47 | REP ---
Clinical: Follow up pneumothorax. Technique: PA and lateral. Comparison: 09/05/2016. Findings: Right apical chest tube in stable position. Small right apical pneumothorax again identified. Right upper lobe mass and right-sided pleuroparenchymal changes along with chronic changes to the left hemithorax remains stable. No new acute process identified. Small amount of subcutaneous emphysema overlying the right chest wall. Impression: No significant change from prior examination. Small right apical pneumothorax, right upper lobe mass and right-sided pleuroparenchymal changes remain stable. Signed by Hans Simeon MD 09/06/2016 08:32 A
[2016-09-06] MEDS: MOM 30ML SUSPENSION UDC PO SCH (09:00)
[2016-09-06] MEDS: DOCUSATE SODIUM 100 MG CAP PO SCH ×2 (09:00→21:00)
--- NOTE | 2016-09-06 09:57 | IPN ---
DATE: 09/06/2016 Ms. Shook still has an air leak today with forceful coughing. Her chest x-ray shows a small separation of the lung from the chest wall superiorly. The subcutaneous emphysema is dissipating, and I see no evidence of pressure within her chest. Her vital signs show a maximum temperature (T max) of 99.0. Heart rate ranges between 79 and 85 and is sinus rhythm, respiratory rate of 19 to 20 without the use of accessory muscles who is 94 to 92% saturated on room air and whose blood pressure is ranging between 116/64 to 130/65. Her intake and output over the past 24 hours has been recorded as 1535 in and 2068 out for a negativity of 533 mL. She has put out 268 mL from the chest tube. There is a small air leak with coughing. Weight today is 92.7 compared to 92.2 kg yesterday. On physical examination, she has equal breath sounds on either side. Percussion note is full to the diaphragm. I hear no wheezes, rhonchi or rales. Cardiac exam is without murmurs, clicks, gallops or rubs. I cannot feel her point of maximum impulse (PMI). S1, S2 are normal. Abdomen is soft and nontender. Bowel sounds are positive. There is no hepatomegaly. No costovertebral angle tenderness. Extremities show maybe trace pretibial edema. No calf tenderness. No differential swelling of the upper extremities. Skin is warm, dry and perfused without cyanosis or mottling, including that of the nail beds and the knees. Neck is supple. There is no jugular venous distention, no subcutaneous emphysema. Trachea is midline. Mouth shows her mucous membranes to be pink and moist. Lips and commissures without lesions. There is no thrush. Eyes show her pupils to be equal and reactive. Extraocular motions intact. Sclerae anicteric. Neurologic shows II-XII intact along with gross motor and gross sensation intact. Gait is not tested. Psychiatric shows her to be awake and alert, oriented times three with appropriate mood and affect and conversational. White count today is 9.7 with a hemoglobin and hematocrit of 12.8 and 39.2 and a platelet count of 375 and stable. Differential shows 67% neutrophils, 19% lymphocytes, 6% monocytes. There are no immature forms. No toxic granulations. Her electrolytes are normal with a BUN and creatinine of 8 and 0.98, a glucose of 157 and a calcium of 8.6. She remains on Toradol. Her chest x-ray, as noted above, shows a separation of the upper lobe from the chest wall. Essentially she has a small apical pneumothorax. The tumor is, of course, still present. Chest tube is in good place at the cupula of the chest. The costophrenic angles are sharp. There is no evidence of fluid accumulation. Lateral chest x-ray shows no posterior infiltrates. IMPRESSION: 1. Stage IV adenocarcinoma right lung with metastasis to pleural fluid. 2. Chronic obstructive pulmonary disease (COPD). 3. Hypertension. 4. Syncope with cough. 5. Paroxysmal cough. 6. Multiple pulmonary nodules in addition to the right upper lobe mass. 7. Pleural effusion drained in x-ray and continuing with a chest tube. 8. Hypothyroidism. 9. Depression. 10. Irritable bowel syndrome. 11. Status post multiple transient ischemic attacks with cerebrovascular accident in the past. 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 PLAN AND DISCUSSION: I am going to clamp her chest tube even though I still see a few bubbles with forceful coughing. I do not know whether that is her retained air or not. Will check a chest x-ray in the morning. If the lung is no further from the chest wall, I will consider removing the chest tube. At that point in time, I will be able to discharge her and have her see oncology as an outpatient. Should the pleural effusion recur, I will place a PleurX catheter.
[2016-09-06] MEDS: VENLAFAXINE **XR** 75MG CAPSULE PO SCH (21:06)
[2016-09-06] MEDS: ATORVASTATIN 20 MG TAB PO SCH (21:06)
[2016-09-07] MEDS: LEVALBUTEROL 1.25 MG/0.5 ML CONCENTRATE NEB NEB SCH ×4 (01:50→20:00)
[2016-09-07] MEDS: KETOROLAC 30 MG/ML VIAL (J1885) IV SCH (03:49)
[2016-09-07 04:45] VITALS: BP 141/69
[2016-09-07 05:09] LABS: BASO % 0.3 % (0.0-1.0); EOS # 0.2 K/mm3 (0.0-0.50); EOS % 2.8 % (0.0-3.0); LARGE UNSTAINED CELL # 0.1 K/mm3 (0.0-0.4); LARGE UNSTAINED CELL % 1.3 % (0.0-4.0); LYMPH # 1.8 K/mm3 (1.5-4.5); LYMPH % 21.2 % (24.0-44.0); MEAN CORPUSCULAR HGB CONC 32.1 g/dl (32.0-36.5); MEAN CORPUSCULAR VOLUME 93.4 fl (80.0-96.0); MONO # 0.4 K/mm3 (0.0-0.8); MONO % 5.5 % (0.0-5.0); NEUTROPHILS # 5.5 K/mm3 (1.8-7.7); PLATELET COUNT, AUTOMATED 285 k/mm3 (150-450); RED CELL DISTRIBUTION WIDTH 14.9 % (11.5-14.5)
[2016-09-07 05:26] LABS: CALCIUM LEVEL 8.3 MG/DL (8.8-10.2); GLOMERULAR FILTRATION RATE 58.4 (>39); POTASSIUM SERUM 3.6 MEQ/L (3.5-5.1)
[2016-09-07] MEDS: LEVOTHYROXINE 137MCG TABLET (0.137MG) PO SCH (06:24)
[2016-09-07 08:00] VITALS: BP 136/88
[2016-09-07] MEDS: ADVAIR DISKUS 250/50 INH PWD INH SCH ×2 (08:00→19:44)
--- NOTE | 2016-09-07 08:37 | REP ---
Clinical: Follow up pneumothorax. Technique: PA and lateral. Comparison: 09/06/2016. Findings: Right apical chest tube in stable position. Small right apical pneumothorax is unchanged. Underlying pleuroparenchymal consolidations and opacities remain stable. There is increased subcutaneous emphysema involving the right hemithorax including newly identified emphysematous changes outlining the pectoralis muscles. The left hemithorax is well-aerated and clear. Skeletal structures are intact. Impression: 1. Right apical pneumothorax similar to prior examination. 2. Increased subcutaneous emphysema involving the right hemithorax. 3. Underlying right-sided pleuroparenchymal changes essentially stable. Signed by Hans Simeon MD 09/07/2016 08:28 A
[2016-09-07] MEDS: DOCUSATE SODIUM 100 MG CAP PO SCH ×2 (09:00→20:22)
[2016-09-07] MEDS: MOM 30ML SUSPENSION UDC PO SCH (09:00)
--- NOTE | 2016-09-07 09:15 | IPN ---
DATE: 09/07/2016 Ms. Shook is not complaining of any shortness of breath. She also has not noticed any subcutaneous emphysema. Her vital signs show a maximum temperature (T max) of 99.5 with a heart rate that ranges between 78 and 88 and is sinus rhythm, respiratory rate of 18 to 22 without the use of accessory muscles who is 91to 90% saturated on room air. Her blood pressure is ranging between 136/88 to 150/79. On physical examination, her lungs show equal breath sounds on either side. I hear no wheezes, rhonchi or rales. Percussion note is full to the diaphragm. Cardiac exam is without murmurs, clicks, gallops or rubs. I cannot feel her point of maximum impulse (PMI). S1, S2 are normal. Abdomen is soft and nontender. Bowel sounds are positive. There is no hepatomegaly. No costovertebral angle tenderness. Extremities show no pretibial edema. No calf tenderness. No differential swelling of the upper extremities. Skin is warm, dry and perfused without cyanosis or mottling, including that of the nail beds and the knees. Neck is supple. There is no jugular venous distention, no subcutaneous emphysema. Trachea is midline. Mouth shows her mucous membranes to be pink and moist. Lips and commissures without lesions. There is no thrush. Eyes show her pupils to be equal and reactive. Extraocular motions intact. Sclerae nonicteric. Neurologic shows II-XII intact along with gross motor and gross sensation intact. Gait is not tested. Psychiatric shows her to be awake and alert, oriented times three with appropriate mood and affect and conversational. Her intake and output over the past 24 hours has been recorded as 1900 in and 90 out. I suspect the intake and output are spurious. She weighs 93.9 kg today compared to 93.7 kg yesterday. White count today is 8.0 with a hemoglobin and hematocrit of 11.5 and 36.0 with a platelet count of 285. Differential shows 69% neutrophils, 21% lymphocytes, 5% monocytes. There are no immature forms. No toxic granulations. Her electrolytes are normal with a BUN and creatinine of 12 and 1.0. I will discontinue her Toradol today. Glucose is 130 with a calcium of 8.3. It should be noted that on the initial drainage, her pleural fluid pH was 7.6 with 7% neutrophils, 79% lymphocytes, and 10% monocytes or <<3:06>> . LDH was 227. <<3:16>> cytology in the cell block showed it to be malignant. Her chest x-ray today shows more expansion of the lung from the chest wall, even with the chest tube clamped. However, there is more subcutaneous emphysema on the lateral chest wall. I cannot feel this subcutaneous emphysema on physical examination. The chest tube has been clamped for 24 hours. IMPRESSION: 1. Stage IV adenocarcinoma right lung with metastasis to pleural fluid. 2. Chronic obstructive pulmonary disease (COPD). 3. Hypertension. 4. Syncope with cough. 5. Paroxysmal cough. 6. Multiple pulmonary nodules in addition to the right upper lobe mass. 7. Pleural effusion drained in x-ray and controlled. 8. Hypothyroidism. 9. Depression. 10. Irritable bowel syndrome. 11. Status post multiple transient ischemic attacks with cerebrovascular accident in the past. 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 PLAN AND DISCUSSION: Her lung is more expanded to the chest wall than it was yesterday. I was a bit concerned about the increase in subcutaneous emphysema, although it is small. I am therefore going to remove her chest tubes. I have warned the patient that the lung may fall again and will have to replace the chest tube. I think that is unlikely considering that it reexpanded with the chest tube being clamped. The chest tube is essentially nonfunctional, and it is as if she does not have one. If all goes well, I will plan for discharge in the morning. We will repeat her chest x-ray in the morning. I will discontinue her Toradol as her creatinine, while normal, is gradually rising. Her chest tube is already out.
[2016-09-07] MEDS: HumaLOG INSULIN (NovoLOG) PER UNIT SC SCH ×4 (09:16→20:10)
[2016-09-07] MEDS: FERROUS SULFATE 325MG TAB PO SCH ×2 (09:19→20:22)
[2016-09-07] MEDS: PANTOPRAZOLE 40MG TAB (PROTONIX) PO SCH (09:19)
[2016-09-07] MEDS: NICOTINE 21MG/24HR 1 EA TRANSDERMAL TD SCH (09:19)
[2016-09-07] MEDS: ASPIRIN 81 MG ENTERIC TAB PO SCH (09:19)
[2016-09-07] MEDS: HEPARIN SOD (PORCINE) 5000 UNITS/ML VIAL SC SCH ×2 (09:19→20:22)
[2016-09-07] MEDS: LOPERAMIDE 2 MG CAP PO SCH ×2 (09:20→20:22)
[2016-09-07] MEDS: CYANOCOBALAMIN 500 MCG TAB PO SCH (09:20)
[2016-09-07] MEDS: VITAMIN D 1,000 INTERNATIONAL UNITS TABLET PO SCH (09:20)
--- NOTE | 2016-09-07 09:48 | REP ---
Clinical: Status post chest tube removal. Comparison: 09/07/2016 at 08:19 a.m. Findings: Previously noted chest tube has been removed. Right-sided apical pneumothorax, pleuroparenchymal opacities and subcutaneous emphysema are essentially unchanged. Left hemithorax is well-aerated and essentially clear. The cardiac silhouette is normal. Skeletal structures are intact. Impression: Status post chest tube removal. Right-sided pneumothorax and pleuroparenchymal changes as well as subcutaneous emphysema stable. Signed by Hans Simeon MD 09/07/2016 09:40 A
[2016-09-07 12:00] VITALS: BP 145/63
[2016-09-07 16:00] VITALS: BP 163/77
[2016-09-07 20:00] VITALS: BP 143/65
[2016-09-07] MEDS: VENLAFAXINE **XR** 75MG CAPSULE PO SCH (20:22)
[2016-09-07] MEDS: ATORVASTATIN 20 MG TAB PO SCH (20:22)
[2016-09-07] MEDS: SLF 3 ML SYR IV SCH (20:23)
[2016-09-07] MEDS ORDERED: SLF 3 ML SYR IV PRN (20:30)
[2016-09-07 23:59] VITALS: BP 129/60
[2016-09-08] MEDS: LEVALBUTEROL 1.25 MG/0.5 ML CONCENTRATE NEB NEB SCH ×2 (01:41→07:52)
[2016-09-08 04:45] VITALS: BP 143/75
[2016-09-08] MEDS: LEVOTHYROXINE 137MCG TABLET (0.137MG) PO SCH (05:43)
[2016-09-08] MEDS: SLF 3 ML SYR IV SCH (05:44)
[2016-09-08 05:51] LABS: BASO % 0.2 % (0.0-1.0); EOS # 0.2 K/mm3 (0.0-0.50); EOS % 2.2 % (0.0-3.0); LARGE UNSTAINED CELL # 0.2 K/mm3 (0.0-0.4); LARGE UNSTAINED CELL % 1.6 % (0.0-4.0); LYMPH # 1.3 K/mm3 (1.5-4.5); MEAN CORPUSCULAR HEMOGLOBIN 30.1 pg (27.0-33.0); MEAN CORPUSCULAR HGB CONC 32.3 g/dl (32.0-36.5); MEAN CORPUSCULAR VOLUME 93.2 fl (80.0-96.0); MONO # 0.5 K/mm3 (0.0-0.8); MONO % 5.3 % (0.0-5.0); NEUTROPHILS # 7.4 K/mm3 (1.8-7.7); NEUTROPHILS % 76.7 % (36.0-66.0); PLATELET COUNT, AUTOMATED 353 k/mm3 (150-450); RED CELL DISTRIBUTION WIDTH 14.8 % (11.5-14.5); WHITE BLOOD COUNT 9.6 K/mm3 (4.0-10.0)
[2016-09-08 06:02] LABS: CALCIUM LEVEL 8.8 MG/DL (8.8-10.2); CREATININE FOR GFR 0.98 MG/DL (0.55-1.02); GLOMERULAR FILTRATION RATE 59.7 (>39)
[2016-09-08] MEDS: HumaLOG INSULIN (NovoLOG) PER UNIT SC SCH (07:28)
[2016-09-08] MEDS: ADVAIR DISKUS 250/50 INH PWD INH SCH (07:52)
--- NOTE | 2016-09-08 07:56 | REP ---
Clinical: Follow up pneumothorax. Technique: PA and lateral. Comparison: 09/07/2016. Findings: A small residual right apical pneumothorax cannot be excluded. Right-sided subcutaneous emphysema and pleuroparenchymal changes including right upper lobe density and scattered infiltrates remain essentially unchanged. Left hemithorax is relatively well aerated and clear/stable. The cardiac silhouette is normal. Impression: No significant change from prior examination. Signed by Hans Simeon MD 09/08/2016 07:47 A
[2016-09-08 08:00] VITALS: BP 134/67
[2016-09-08] MEDS: VITAMIN D 1,000 INTERNATIONAL UNITS TABLET PO SCH (08:52)
[2016-09-08] MEDS: PANTOPRAZOLE 40MG TAB (PROTONIX) PO SCH (08:52)
[2016-09-08] MEDS: ASPIRIN 81 MG ENTERIC TAB PO SCH (08:52)
[2016-09-08] MEDS: FERROUS SULFATE 325MG TAB PO SCH (08:52)
[2016-09-08] MEDS: HEPARIN SOD (PORCINE) 5000 UNITS/ML VIAL SC SCH (08:52)
[2016-09-08] MEDS: NICOTINE 21MG/24HR 1 EA TRANSDERMAL TD SCH ×2 (08:52→08:56)
[2016-09-08 08:53] VITALS: BP 134/67
[2016-09-08] MEDS: MOM 30ML SUSPENSION UDC PO SCH (08:53)
[2016-09-08] MEDS: LOPERAMIDE 2 MG CAP PO SCH (08:53)
[2016-09-08] MEDS: CYANOCOBALAMIN 500 MCG TAB PO SCH (08:53)
[2016-09-08] MEDS: DOCUSATE SODIUM 100 MG CAP PO SCH (08:53)
--- NOTE | 2016-09-09 09:02 | DSES ---
DATE OF ADMISSION: 09/02/2016 DATE OF DISCHARGE: 09/08/2016 DISCHARGE DIAGNOSES: 1. Stage IV adenocarcinoma right lung with metastases of pleural fluid. 2. Chronic obstructive pulmonary disease (COPD). 3. Hypertension. 4. Syncope with cough. 5. Paroxysmal cough. 6. Multiple pulmonary nodules in addition to the right upper lobe mass. 7. Pleural effusion, malignant. 8. Hypothyroidism. 9. Depression. 10. Irritable bowel syndrome. 11. Status post multiple transient ischemic attacks (TIAs) with a cerebrovascular accident (CVA) in the past. 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 HOSPITAL COURSE: The patient is a 71-year-old white female who was seen in urgent consultation at the request of radiology after a pneumothorax on lung biopsy. Her story starts about three months ago when she started to develop coughing with syncopal episodes. The syncopal episodes had however occurred on prior occasions in the past three years with coughing. The coughing however has become worse in the past three months. She has gone through an extensive syncope workup, all of which has been negative. A chest tube was placed when the patient was admitted. She had a continuing air leak. Pathology returned with malignancy in both the right upper lobe mass and in the pleural fluid consistent with adenocarcinoma, making her a stage IV disease. Her alveolar pleural fistula persisted and then became intermittent. Three days prior to discharge, her chest tube was clamped and the lung remained fully expanded to the chest wall. However, there was a small amount of increasing subcutaneous emphysema on the right lateral chest wall. The chest tube nonetheless was removed as the lung expanded to the chest wall and chest x-ray on the day of discharge showed the lung fully expanded to the chest wall with dissipating subcutaneous emphysema. She is being discharged today with the above chest x-ray and with a white count of 9.6, a hemoglobin and hematocrit of 12.6 and 39.9, along with a BUN and creatinine of 11 and 0.98. She is also being discharged on her home medications, which include: - Ventolin two puffs as needed shortness of breath - albuterol nebulizer every 4 hours as needed shortness of breath - amlodipine 2.5 mg daily - aspirin 81 mg daily - atorvastatin 40 mg daily - calcium plus D one tab a day - vitamin B12 1000 mcg daily - ferrous sulfate 325 mg twice a day - fish oil 1000 mg daily - Flonase 15 mcg per spray one spray daily as needed nasal congestion - Culturelle one capsule daily - levocetirizine 5 mg at bedtime - Synthroid 137 mg daily - loperamide 4 mg by mouth twice a day as needed loose stools - magnesium chloride two tablets daily - Nitrostat 0.4 mg as needed chest pain sublingually - omeprazole 40 mg twice a day - Advair Diskus 250/50 one puff twice a day - venlafaxine ER 75 mg at bedtime I will see her back in post hospitalization followup in about a week. At that time, I will refer her to medical oncology. We will follow her chest x-rays serially. It may very well be that she will need a PleurX catheter.
== END 2016-09-08 10:36 | disposition home or self-care (01) | DRG 199 ==
LOC: M RADPRO 10:26 → M PCU 14:27
PROVIDERS: ADMIT Thoracic Surgery (Cardiothoracic Vascular Surgery); ATTEND Thoracic Surgery (Cardiothoracic Vascular Surgery)
PROC: 0BBC3ZX Excision of Right Upper Lung Lobe, Percutaneous Approach, Diagnostic (ICD-10-PCS; principal; 2016-09-02)
PROC: 0W993ZX Drainage of Right Pleural Cavity, Percutaneous Approach, Diagnostic (ICD-10-PCS; 2016-09-02)
PROC: 0W9930Z Drainage of Right Pleural Cavity with Drainage Device, Percutaneous Approach (ICD-10-PCS; 2016-09-02)
DX: J95.811 Postprocedural pneumothorax (principal); J86.0 Pyothorax with fistula; C34.11 Malignant neoplasm of upper lobe, right bronchus or lung; J91.0 Malignant pleural effusion; J44.9 Chronic obstructive pulmonary disease, unspecified; I10 Essential (primary) hypertension; R55 Syncope and collapse; R05 Cough; E11.9 Type 2 diabetes mellitus without complications; E78.5 Hyperlipidemia, unspecified; E03.9 Hypothyroidism, unspecified; F32.9 Major depressive disorder, single episode, unspecified; G47.00 Insomnia, unspecified; K21.9 Gastro-esophageal reflux disease without esophagitis; Z86.73 Personal history of transient ischemic attack (TIA), and cerebral infarction without residual deficits; Z88.0 Allergy status to penicillin; Z88.1 Allergy status to other antibiotic agents; Z88.8 Allergy status to other drugs, medicaments and biological substances; F17.200 Nicotine dependence, unspecified, uncomplicated; K58.9 Irritable bowel syndrome, unspecified; Z79.899 Other long term (current) drug therapy; Z79.82 Long term (current) use of aspirin

== ENCOUNTER → 2016-09-09 | Outpatient (CLI) | payer MEDICARE, MEDICAID ==
[~2016-09-09] MED LIST changes: +ALBU17IN INH; +ALBU83IN INH; +ALEV220T26 PO; +AMLO2.5T PO; +AVEL1TAB3 PO; +CALC1TAB21 PO; +IMOD2TAB16 PO; +JANU100T PO; +LEVO137T14 PO; +LEVOTAB10 PO; +NITR4TASL SL; +ONDA8TAB7 PO; +PROC10TA PO; +VARE1TA PO; +VENL75CA2 PO
== END ==
LOC: M PLARAD 07:45
PROVIDERS: ATTEND Family Medicine
DX: D38.1 Neoplasm of uncertain behavior of trachea, bronchus and lung (principal); Z53.9 Procedure and treatment not carried out, unspecified reason

== ENCOUNTER → 2016-09-16 | Outpatient (CLI) | payer MEDICARE, MEDICAID ==
--- NOTE | 2016-09-16 21:45 | REP ---
PET/CT: History: Initial staging and diagnosis, poorly differentiated adenocarcinoma of the lung. Comparisons: Comparison CT study of the chest is from August 21, 2016. The patient underwent CT guided needle biopsy and ultrasound guided thoracentesis of the right lung on September 02, 2016 with the complication of post biopsy pneumothorax. TECHNIQUE: 48 minutes following the intravenous injection of a 10.2 mCi dose of F-18 FDG, three-dimensional PET scintigraphy is acquired from the skull base to the proximal thighs. Triplanar noncontrast CT scanning is acquired through the same anatomic range for attenuation correction, and image registration with scan parameters optimized to minimize radiation exposure to the patient. PET scintigraphy and CT datasets were fused and displayed on a workstation with multiplanar and projection display capability. PET/CT Findings: The patient's large area of mass-like consolidation in the right upper lobe which was biopsied and shown to be malignant is hypermetabolic. Maximum standard uptake value within this is 11.8. There is borderline visceral pleural uptake along the recurrent right pleural effusion adjacent to the right lower lobe. Maximum standard uptake value in this region is 3.0. The other visualized small pulmonary parenchymal nodules do not show discernible uptake. There is an additional focus of peripheral right lung hypermetabolic uptake in a pleural-based opacity in the middle lobe distribution, maximum standard uptake value 3.6. No other hypermetabolic uptake is seen in the thorax. In the abdomen and pelvis there is no abnormal hypermetabolic uptake. Incidental note is made of some residual subcutaneous emphysema in the soft tissues of the right breast in anterior chest wall. Impression: Hypermetabolic uptake in the large mass in the right upper lobe as well as along the recurrent right pleural effusion. No other abnormal hypermetabolic uptake is seen. Signed by Adrian Salcedo MD 09/17/2016 09:33 A
== END ==
LOC: M PLARAD 11:24
PROVIDERS: ATTEND Family Medicine
DX: R91.8 Other nonspecific abnormal finding of lung field (principal); J90 Pleural effusion, not elsewhere classified
CPT/HCPCS: 78815; A9552

== ENCOUNTER 2016-09-21 10:15 | Outpatient (CLI) | payer MEDICARE, MEDICAID ==
[2016-09-21] MEDS: LEVALBUTEROL 1.25 MG/0.5 ML CONCENTRATE NEB NEB SCH ×2 (08:00→13:41)
[~2016-09-21 10:15] MED LIST changes: +ACETAMINOPHEN TAB 650MG DOSE (2X325MG) PO PRN; -ALEV220T26 PO; -AVEL1TAB3 PO; -JANU100T PO; +KCL 20MEQ IN D5/NS 1000ML 1,000 ML IV SCH; +LEVALBUTEROL 1.25 MG/0.5 ML CONCENTRATE NEB NEB PRN; -ONDA8TAB7 PO; +PERCOCET 5MG/325MG TAB PO PRN; -PROC10TA PO; +VANCOMYCIN HCL 1,000 MG, VIAL MATE ADAPTER 1 EACH in D5W 250 ML IV ONE; -VARE1TA PO
[2016-09-21 10:20] VITALS: BP 154/88
--- NOTE | 2016-09-21 11:45 | REP ---
CT of the chest without IV contrast: Comparisons are the chest CT dated 08/21/2016 and PA and lateral plain film studies dated 09/08/2016 and 09/21/2016. There is increasing focal radiodensity inferiorly in the right lung on the comparison plain film studies. The patients known right upper lobe mass is again identified, unchanged from the comparison studies. There is a large right pleural effusion, not significantly changed from the comparison CT. However, this appears to have increased from the comparison plain film study of 09/08/2016. Multiple small lung nodules are again identified bilaterally, unchanged, compatible with metastatic disease. There is no mediastinal lymphadenopathy. This is unchanged, the study is insensitive for hilar adenopathy in the absence of IV contrast. There is no axillary adenopathy. The unenhanced thoracic aorta is unremarkable except for occasional calcified atheroma. Cardiac size is normal. The visualized upper abdominal contents are unremarkable. There is no adrenal mass. Impression: Large right pleural effusion, similar to the comparison chest CT. However, this effusion appears to have increased on the serial PA and lateral plain film studies from 09/08/2016 to 09/21/2016. The patients known right upper lobe mass is again identified. Multiple bilateral small lung nodules are again identified, unchanged. Compression deformity of the approximate L1 vertebral body is again identified, unchanged. This is unchanged from a plain film study of the lumbar spine dated 02/26/2016. Signed by Floyd Bowen MD 09/21/2016 11:37 A
[2016-09-21 12:00] VITALS: BP 144/72
[2016-09-21] MEDS ORDERED: MIDAZOLAM INJ 2 MG/2 ML VIAL (J2250) IV ONE (12:00)
[2016-09-21] MEDS ORDERED: LIDOCAINE 1% MDV 20ML VIAL SC ONE (12:00)
[2016-09-21] MEDS ORDERED: FLUMAZENIL 0.5 MG/5 ML VIAL As Ordered ONE (12:00)
[2016-09-21] MEDS ORDERED: MIDAZOLAM INJ 2 MG/2 ML VIAL (J2250) As Ordered ONE (12:00)
[2016-09-21 12:43] VITALS: BP 130/75
[2016-09-21 13:01] VITALS: BP 131/81
[2016-09-21] MEDS ORDERED: JANU100T PO (13:32)
[2016-09-21] MEDS ORDERED: VARE1TA PO (14:06)
[2016-09-21 14:16] LABS: RBC PLEURAL FLUID < 10 (<10mm3 cells/uL); TNC PLEURAL FLUID 1310 cells/uL (0-20)
[2016-09-21 14:17] LABS: BF DIFF IF INDICATED? YES (NO)
[2016-09-21 14:33] LABS: LDH, BODY FLUID 207 U/L (NOT ESTABLISHED)
[2016-09-21 15:00] LABS: CC BF DIFF EXAM CYTOCENTRIFUGE
--- NOTE | 2016-09-21 15:01 | REP ---
PORTABLE CHEST, ONE VIEW: HISTORY: Pleural effusion. COMPARISON: 8:51 a.m. 09/21/2016. A parenchymal mass is present in the right upper lobe. There is blunting of the right costophrenic angle due to a pleural effusion. The left lung is clear. The heart is normal in size. A chest tube is present in the right hemithorax. There is no definite pneumothorax. IMPRESSION: 1. Right upper lobe mass unchanged compared to the previous study. 2. Right pleural effusion unchanged compared to the previous study. 3. The patient is status post right chest tube placement. There is no definite pneumothorax. Signed by Santi Patel MD 09/21/2016 03:22 P
--- NOTE | 2016-09-21 17:47 | DSES ---
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 2. Chronic obstructive pulmonary disease (COPD). 3. Hypertension. 4. Syncope with cough. 5. Paroxysmal cough. 6. Multiple Pulmonary nodule in addition to the right upper lobe mass. 7. Pleural effusion malignant. 8. Hypothyroidism. 9. Depression. 10. Irritable bowel syndrome. 11. Status-post multiple transient ischemic attacks with cerebrovascular event in the past. 12. Tobacco abuse. HOSPITAL COURSE: The patient is a 71-year-old White female who was first seen after developing a pneumothorax and a lung biopsy in early September. Her biopsy turned out to be adenocarcinoma and the pleural fluid which also done at the same biopsy was found also to be malignant. Patient underwent a chest tube placement at that time. Patient pleural fluid has again reoccurred and she appeared in the office today more acutely short of breath. Shortness of breath has been increasing over the past 3-4 days. Chest x-ray showed a recurrence of the pleural fusion. She was admitted to the hospital where she underwent a PleurX catheter insertion. 750 mL of jabier fluid was removed and sent for the requisite studies. Patient was taught PleurX catheter care and is going to be discharged home today on her home medications which include Ventolin 2 puffs every 4 hours as needed shortness of breath, amlodipine 2.5 mg every day, aspirin 81 mg every day. Atorvastatin 40 mg at bedtime. Calcium 600 every day. Vitamin B12 1000 mcg every day, ferrous sulfate 325 mg twice a day, Flonase 1 spray to each naris as needed for congestion, Synthroid 137 mcg every day, loperamide 4 mg by mouth twice a day as needed diarrhea, Nitrostat 0.4 mg as needed chest pain, omeprazole 40 mg by mouth twice a day, Advair discus 250/50 1 puff twice a day, Januvia 1000 mg every day, venlafaxine 65 mg at bedtime, and vitamin D 2000 unit every day along with Chantix 1 mg by mouth twice a day. She will return to see me in 2 weeks with followup chest x-ray.
--- NOTE | 2016-09-22 07:49 | RO ---
DATE OF PROCEDURE: 09/21/2016 PREPROCEDURE DIAGNOSES: Recurrent malignant pleural effusion. POSTPROCEDURE DIAGNOSES: Recurrent malignant pleural effusion. SURGEON: Daniel Martínez MD BEHAVIORAL CONSULTANT: ANESTHESIA: PROCEDURE: Insertion of a PleurX catheter. DESCRIPTION OF PROCEDURE: Under satisfactory monitored sedation, she was given 3 mg of Versed. Patient was prepped and draped in the usual sterile fashion. Entry points were chosen and the skin and subcutaneous tissue along the pleura at the entry site were infiltrated with 1% Xylocaine. The exit site was also infiltrated with 1% Xylocaine and the proposed tunnel site was infiltrated with the same. Exploring needle was placed and pleural fluid was obtained and a wire was placed without difficulty. Two incisions were made, one at the entrance and one at the exit sites. Tunnel was created between the exit and the entrance site and a catheter pulled through the tunnel and properly positioned. The tunnel was then dilated successfully until the peel away introducer could be placed. After placement of the peel away introducer the internal dilator was removed and the PleurX catheter was placed into the introducer. The introducer was peeled away and removed and the catheter positioned properly. The entry incision was closed with running #4-0 Monocryl subcuticular suture and the catheter was secured to the abdominal wall by one #3-0 silk suture. The entry site was covered with Dermabond. Patient tolerated the procedure well and a chest x-ray is pending.
== END 2016-09-21 17:50 | disposition home or self-care (01) ==
LOC: M OPCLIICU 10:15 → M PCU 10:25 → M OPCLIICU 17:50
PROVIDERS: ATTEND Thoracic Surgery (Cardiothoracic Vascular Surgery)
DX: C34.91 Malignant neoplasm of unspecified part of right bronchus or lung (principal); J91.0 Malignant pleural effusion; Z79.899 Other long term (current) drug therapy
CPT/HCPCS: 32550; 36415; 71010; 71020; 71250; 82042; 82150; 82465; 82945; 83615; 83986; 84157; 84478; 87070; 87075; 87102; 87116; 87205; 87206; 88108; 88305; 88313; 89051; 94640; J2250; J3370

== ENCOUNTER → 2016-09-21 | Outpatient (CLI) | payer MEDICARE, MEDICAID ==
--- NOTE | 2016-09-21 09:12 | REP ---
PA and lateral chest: Comparisons are 09/08/2016, 09/07/2016. There is a large mass in the right upper lobe, unchanged. There is a minimal volume of subcutaneous emphysema along the right lateral chest wall, significantly decreased. There is opacification of the right costophrenic angle and right lung inferiorly compatible with infiltrate/effusion. This has increased in size. Left lung is clear. Cardiac size is normal. Impression: Increasing density inferiorly in the right lung including the right costophrenic angle. Right upper lobe mass is again identified. Minimal volume of subcutaneous emphysema along the right lateral chest wall Signed by Floyd Bowen MD 09/21/2016 09:04 A
== END ==
LOC: M SMT 08:45
PROVIDERS: ATTEND Thoracic Surgery (Cardiothoracic Vascular Surgery)
DX: C34.11 Malignant neoplasm of upper lobe, right bronchus or lung (principal)

== ENCOUNTER → 2016-09-25 | Outpatient (REF) | payer MEDICARE, MEDICAID ==
[~2016-09-25] MED LIST changes: -ACETAMINOPHEN TAB 650MG DOSE (2X325MG) PO PRN; +ALEV220T26 PO; +AVEL1TAB3 PO; +JANU100T PO; -KCL 20MEQ IN D5/NS 1000ML 1,000 ML IV SCH; -LEVALBUTEROL 1.25 MG/0.5 ML CONCENTRATE NEB NEB PRN; +ONDA8TAB7 PO; -PERCOCET 5MG/325MG TAB PO PRN; +PROC10TA PO; -VANCOMYCIN HCL 1,000 MG, VIAL MATE ADAPTER 1 EACH in D5W 250 ML IV ONE; +VARE1TA PO
[2016-09-25 13:42] LABS: INR 0.98
== END ==
LOC: M LAB REF 13:03
PROVIDERS: ATTEND Internal Medicine Medical Oncology
DX: C34.11 Malignant neoplasm of upper lobe, right bronchus or lung (principal); J91.0 Malignant pleural effusion; Z72.0 Tobacco use

== ENCOUNTER → 2016-09-25 | Outpatient (CLI) | payer MEDICARE, MEDICAID ==
--- NOTE | 2016-09-25 11:28 | REP ---
Left lower extremity deep vein duplex ultrasound: The deep veins demonstrate normal compression, normal Doppler color flow and normal Doppler waveforms with respiration augmentation at multiple levels from the popliteal vein to the common femoral vein. Impression: Negative study. There is no deep vein thrombus. Signed by Floyd Bowen MD 09/25/2016 11:19 A
== END ==
LOC: M RAD 10:54
PROVIDERS: ATTEND Internal Medicine Medical Oncology
DX: C34.90 Malignant neoplasm of unspecified part of unspecified bronchus or lung (principal); M79.89 Other specified soft tissue disorders; C34.11 Malignant neoplasm of upper lobe, right bronchus or lung; J91.0 Malignant pleural effusion; Z72.0 Tobacco use

== ENCOUNTER → 2016-09-28 | Outpatient (CLI) | payer MEDICARE, MEDICAID ==
--- NOTE | 2016-09-28 09:09 | REP ---
CHEST, TWO VIEWS Two views of the chest are performed and compared to a prior study of 09/21/2016. A right chest tube is again noted. Right upper lobe mass with adjacent pleural thickening is again see and unchanged. There is improvement of right basilar pleural and parenchymal opacities. Subtle small nodules are scattered throughout the left lung. There are degenerative changes of the spine. IMPRESSION: Right upper lobe mass. Right chest tube remains in place. There has been improvement of right basilar and pleural and parenchymal opacities compared to the prior study, with mild residual. Signed by Floyd Vera MD 09/28/2016 01:11 P
== END ==
LOC: M SMT 08:23
PROVIDERS: ATTEND Internal Medicine Medical Oncology
DX: C34.90 Malignant neoplasm of unspecified part of unspecified bronchus or lung (principal); R91.8 Other nonspecific abnormal finding of lung field; Z97.8 Presence of other specified devices

== ENCOUNTER → 2016-10-08 | Outpatient (CLI) | payer MEDICARE, MEDICAID ==
--- NOTE | 2016-10-08 12:25 | REP ---
CHEST, TWO VIEWS: HISTORY: Lung carcinoma. Comparison 09/28/2016. An ill-defined mass is present in the right upper lobe. Parenchymal density is present in the right lower lobe unchanged compared to the previous study. A chest tube is present in the right hemithorax. An increase in interstitial markings is present in the left lung. The heart is normal in size. The pulmonary vasculature is normal in appearance. The bony structure is intact. IMPRESSION: Right upper lobe mass unchanged compared to the previous study. There is no definite pneumothorax. Signed by Santi Patel MD 10/08/2016 12:34 P
== END ==
LOC: M SMT 11:24
PROVIDERS: ATTEND Thoracic Surgery (Cardiothoracic Vascular Surgery)
DX: C34.11 Malignant neoplasm of upper lobe, right bronchus or lung (principal)

== ENCOUNTER 2016-10-27 10:57 | Inpatient (IN) | payer MEDICARE, MEDICAID ==
[~2016-10-27] VITALS: Ht 160 cm; Wt 86.0 kg
[~2016-10-27 10:57] MED LIST changes: -ALEV220T26 PO; -AVEL1TAB3 PO; -ONDA8TAB7 PO; -PROC10TA PO
[2016-10-27] MEDS ORDERED: NS 1,000 ML IV SCH (11:30)
[2016-10-27] MEDS ORDERED: NS 1,000 ML IV ONE (12:15)
[2016-10-27] MEDS ORDERED: ONDANSETRON 4MG/2ML VIAL (J2405) IV ONE (12:15)
[2016-10-27 12:39] LABS: ALBUMIN 2.7 GM/DL (3.2-5.2); ALBUMIN/GLOBULIN RATIO 0.77 (1.00-1.93); BILIRUBIN,DIRECT 0.1 MG/DL (0.0-0.2); BILIRUBIN,TOTAL 0.5 MG/DL (0.2-1.0); CALCIUM LEVEL 8.8 MG/DL (8.8-10.2); CREATININE FOR GFR 1.01 MG/DL (0.55-1.02); GLOMERULAR FILTRATION RATE 57.7 (>39); POTASSIUM SERUM 3.9 MEQ/L (3.5-5.1); TOTAL PROTEIN 6.2 GM/DL (6.4-8.2)
--- NOTE | 2016-10-27 12:39 | REP ---
Abdominal series: Three views. History: Vomiting. Comparison chest x-ray October 08, 2016. Findings: A PleurX catheter is noted in place on the right near the apex as before. There is mixed pleuroparenchymal opacity in the right lung most pronounced in the apex. Some volume loss in the right hemithorax is again seen unchanged. Interstitial markings are somewhat prominent diffusely on the left unchanged. No evidence of new infiltrate or free subdiaphragmatic air. Supine and erect views of the abdomen demonstrate an unremarkable bowel gas pattern. There are two opacities in the right upper quadrant which appear to be undigested tablets. Vascular calcification is noted. There is wedging of the L1 vertebral body which is unchanged. No significant air fluid level seen. Impression: Unremarkable bowel gas pattern. Undigested tablets seen in the right upper quadrant. PleurX catheter noted in the right chest. Signed by Adrian Salcedo MD 10/27/2016 01:08 P
[2016-10-27 13:07] LABS: ADD MANUAL DIFFER YES; MEAN CORPUSCULAR HEMOGLOBIN 30.5 pg (27.0-33.0); MEAN CORPUSCULAR HGB CONC 33.6 g/dl (32.0-36.5); MEAN CORPUSCULAR VOLUME 90.9 fl (80.0-96.0); PLATELET COUNT, AUTOMATED 320 k/mm3 (150-450); RED CELL DISTRIBUTION WIDTH 14.9 % (11.5-14.5)
[2016-10-27 13:28] LABS: ANISOCYTOSIS 1+; BANDS 3 % (< 11); POIKILOCYTOSIS 1+
[2016-10-27] MEDS ORDERED: PROMETHAZINE INJ 25 MG/ML VIAL (J2550) IV ONE (15:00)
[2016-10-27] MEDS: NS 1,000 ML IV SCH (17:09)
[2016-10-27] MEDS ORDERED: DEXTROSE 50% 50 ML SYRINGE IV PRN (17:15)
[2016-10-27] MEDS ORDERED: ONDANSETRON 4MG/2ML VIAL (J2405) IV PRN (17:15)
[2016-10-27] MEDS ORDERED: GLUCAGON FOR INJ 1 MG VIAL (J1610) SC PRN (17:15)
[2016-10-27] MEDS ORDERED: GLUCOSE 4 GM CHEW TABLET PO PRN (17:15)
[2016-10-27] MEDS ORDERED: ONDANSETRON 4 MG TAB (S0181) PO PRN (17:15)
[2016-10-27] MEDS ORDERED: PROC10TA PO (17:25)
[2016-10-27] MEDS ORDERED: ONDA8TAB7 PO (17:25)
[2016-10-27] MEDS: HumaLOG INSULIN (NovoLOG) PER UNIT SC SCH ×2 (17:30→20:35)
--- NOTE | 2016-10-27 19:59 | HPEPDOC ---
Medical History and Physical Date of Admission Oct 27, 2016 at 17:09 History and Physical HISTORY AND PHYSICAL Date of admission: 10/27/2016 PCP: Dr. Linda Dodge Chief complaint: Diarrhea HPI: 71-year-old female with diabetes mellitus, hypertension, GERD, depression, hypothyroidism, sleep apnea on CPAP, IBS, history of multiple TIAs, hyperlipidemia, stage IV adenocarcinoma of the lung who presented to the emergency department with copious diarrhea since Wednesday. She states that she has had 2 rounds of chemotherapy, the last one being this past , and ever since Wednesday night she has had profuse, watery diarrhea. She denies any blood in the diarrhea and also denies any sick contacts. She endorses some nausea, as well as some vomiting that has started since being in the emergency department. She states that the last several days, the only thing she has been able to take is liquids, and she has mostly been having powerade. She saw Dr. Daniels, her oncologist, yesterday, and at that time, she was given some IV fluids. When she first arrived in the emergency department, her systolic blood pressure was a little soft and in the 90s, but this has resolved with IV fluids. Past medical history: diabetes mellitus, hypertension, GERD, depression, hypothyroidism, sleep apnea on CPAP, IBS, history of multiple TIAs, hyperlipidemia, stage IV adenocarcinoma of the lung Past surgical history: Cholecystectomy, right Pleurx catheter placement, back surgery, tonsillectomy, hysterectomy, BTL, bilateral cataracts Family history: Diabetes mellitus, hypertension Social history: The patient currently lives with her brother. She smokes approximately 4-5 cigarettes daily, but she used to smoke 1 pack per day starting at age 31. She denies any drug or alcohol use. Allergies: Erythromycin, Macrobid, penicillin, procaine, sulfa, tetracycline Review of systems: General: Positive for chills, negative for fever Eyes: Positive for blurry vision, negative for ocular discharge ENT: Positive for sore throat, negative for nose bleeding Cardiovascular: Negative for chest pain and palpitations Respiratory: Positive for chronic cough and chronic shortness of breath GI: Positive for nausea, vomiting, diarrhea Musculoskeletal: Positive for bilateral back pain Skin: Negative for rash Neuro: Positive for dizziness, negative for headache, numbness, tingling Psych: Positive for depression, negative for suicidal ideation Endocrine: Negative for polyuria : Negative for dysuria Heme: Negative for bruising and bleeding Home meds: See below Physical exam: Vital signs: Vital Sign - Last 24 Hours 10/27/16 10/27/16 10/27/16 10/27/16 10:58 11:42 11:47 11:57 Temp 97.8 Pulse 116 104 Resp 18 B/P (MAP) 94/70 (78) 159/75 (103) Pulse Ox 93 92 94 O2 Delivery Room Air 10/27/16 10/27/16 10/27/16 10/27/16 12:02 12:12 12:17 12:27 Pulse 108 98 B/P (MAP) 136/61 (86) 135/67 (89) Pulse Ox 92 92 10/27/16 10/27/16 10/27/16 10/27/16 12:31 12:32 12:42 12:47 Pulse 94 B/P (MAP) 137/70 (92) 138/73 (94) Pulse Ox 92 10/27/16 10/27/16 10/27/16 10/27/16 13:02 13:17 13:32 13:47 Pulse 90 90 94 96 B/P (MAP) 143/73 (96) 142/70 (94) 129/70 (89) 123/59 (80) Pulse Ox 93 92 90 91 10/27/16 10/27/16 10/27/16 10/27/16 14:02 14:17 14:32 14:47 Pulse 96 98 98 96 B/P (MAP) 118/59 (78) 119/56 (77) 116/59 (78) 120/57 (78) Pulse Ox 92 89 89 89 10/27/16 10/27/16 10/27/16 10/27/16 15:02 15:17 15:32 15:47 Pulse 98 100 98 104 B/P (MAP) 114/59 (77) 112/57 (75) 111/55 (73) 126/67 (86) Pulse Ox 90 91 92 10/27/16 10/27/16 10/27/16 10/27/16 16:02 16:17 16:32 16:47 Pulse 102 100 98 102 B/P (MAP) 119/67 (84) 132/72 (92) 127/65 (85) 131/68 (89) Pulse Ox 91 90 91 90 8/22/17 8/22/17 8/22/17 8/22/17 17:02 17:17 17:32 17:47 Pulse 92 90 94 98 B/P (MAP) 140/71 (94) 141/75 (97) 116/57 (76) 123/58 (79) Pulse Ox 92 95 92 92 10/27/16 10/27/16 10/27/16 10/27/16 18:02 18:17 18:32 18:47 Pulse 98 94 96 96 B/P (MAP) 124/66 (85) 125/71 (89) 126/58 (80) Pulse Ox 91 92 91 10/27/16 10/27/16 10/27/16 19:02 19:17 19:32 Pulse 96 96 96 B/P (MAP) 118/58 (78) 110/53 (72) 116/63 (80) Pulse Ox 91 92 91 Gen.: awake, alert, no acute distress Eyes: Extraocular movements intact, normal sclera ENT: Dry mucous membranes Cardiovascular: RRR, no murmurs rubs or gallops Lungs: clear to auscultation bilaterally, no rales, rhonchi, or wheeze Abdomen: Soft, ND, hyperactive BS, diffuse tenderness to palpation in the bilateral lower quadrants Musculoskeletal: normal range of motion Extremities: No peripheral edema Neuro: alert and oriented 3, normal speech, no focal deficits Psych: Normal mood with congruent affect Labs and radiology: See below CBC, CMP, lipase are unremarkable GI panel shows a ETEC and STEC Assessment and plan: 71-year-old female with diabetes mellitus, hypertension, GERD, depression, hypothyroidism, sleep apnea on CPAP, IBS, history of multiple TIAs, hyperlipidemia, stage IV adenocarcinoma of the lung who presented to the emergency department with copious diarrhea. 1. Diarrhea: GI panel shows ETEC and STEC, so we will hold off on any antibiotics or antimotility agents at this time, particularly as antibiotic or antimotility agents could increase her risk for HUS. Continue supportive care with IV fluids, clear liquid diet, and Zofran. 2. Diabetes mellitus: Currently holding home Januvia. Sliding scale insulin while in house. 3. Hypertension: Patient's blood pressure was soft upon arrival, but has improved with IV fluids. We are currently holding home Norvasc. 4. GERD: Continue home PPI. 5. Depression: Continue home Effexor. 6. Hypothyroidism: Continue home Synthroid. 7. Sleep apnea: Patient may use home CPAP machine. 8. History of multiple TIAs, hyperlipidemia: Continue home aspirin and statin. 9. Stage IV adenocarcinoma of the lung: Continue home albuterol, Flonase, Advair. Per the patient, Dr. Coe has told her that she does not have COPD. DVT prophylaxis: SCDs Dispo: admit as an inpatient to the service of Dr. Oquendo CODE STATUS: Full code Vital Signs Vital Signs Date Time Temp Pulse Resp B/P (MAP) Pulse Ox O2 Delivery O2 Flow Rate FiO2 10/27/16 19:32 96 116/63 (80) 91 10/27/16 10:58 97.8 18 Room Air Laboratory Data Labs 24H Laboratory Tests 2 10/27/16 12:02: Neutrophils 84H, Band Neutrophils 3, Lymphocytes (Manual) 10L, Monocytes (Manual ) 3, Platelet Estimate NORMAL, Poikilocytosis 1+, Anisocytosis 1+, Anion Gap 10 , Glomerular Filtration Rate 57.7, Calcium Level 8.8, Aspartate Amino Transf ( AST/SGOT) 7L, Alanine Aminotransferase (ALT/SGPT) 10L, Alkaline Phosphatase 125H , Total Bilirubin 0.5, Direct Bilirubin 0.1, Total Protein 6.2L, Albumin 2.7L, Albumin/Globulin Ratio 0.77L, Lipase 69L 10/27/16 17:40: Bedside Glucose (Misc Panel) 116H CBC/BMP Laboratory Tests 10/27/16 12:02 Red Blood Count 4.34, Mean Corpuscular Volume 90.9, Mean Corpuscular Hemoglobin 30.5, Mean Corpuscular Hemoglobin Concent 33.6, Red Cell Distribution Width 14.9 H Microbiology Microbiology 10/27/16 Gastrointestinal Tract Panel (PCR) - Final, Complete Enterotoxigenic E.coli Lt/St Shiga-Like E.coli Not O157 Home Medications Scheduled (Calcium 600 + D 600-200 mg-Unit) 1 Tab Tab, 1 TAB PO DAILY Amlodipine Besylate (Amlodipine Besylate) 2.5 Mg Tab, 2.5 MG PO DAILY Aspirin (Aspir-Low) 81 Mg Tab, 81 MG PO DAILY Atorvastatin Calcium (Atorvastatin Calcium) 40 Mg Tab, 40 MG PO QHS Cyanocobalamin (Vitamin B12) 1,000 Mcg Tab, 1,000 MCG PO DAILY Ferrous Sulfate (Ferrous Sulfate) 325 Mg Tab, 325 MG PO BID Fish Oil (Fish Oil) 1,000 Mg Cap, 1,000 MG PO DAILY Lactobacillus Rhamnosus (Culturelle) 1 Cap Cap, 1 CAP PO DAILY Levocetirizine Hydrochloride (Levocetirizine Dihydrochl) 5 Mg Tab, 5 MG PO QHS Levothyroxine Sodium (Levoxyl) 137 Mcg Tab, 137 MCG PO DAILY Loperamide Hcl (Imodium A-D) 2 Mg Tab, 4 MG PO BID Magnesium Chloride (Slow-Mag 71.5-119 mg) 1 Tab Tab, 2 TAB PO DAILY Omeprazole (Omeprazole) 40 Mg Cap, 40 MG PO BID Salmeterol/Fluticasone (Advair Diskus 250-50 Mcg/Dose) 14 Puff/Inhaler Aerp, 1 PUFF INH BID Sitagliptin Phosphate (Januvia) 100 Mg Tab, 100 MG PO DAILY Venlafaxine HCl (Venlafaxine HCl ER) 75 Mg Cap, 75 MG PO QHS Vitamin D (Vitamin D) 2,000 Unit Cap, 2,000 UNIT PO DAILY Scheduled PRN (Flonase Allergy Relief) 50 Mcg/Act Spr, 1 SPRAY NA DAILY PRN for NASAL CONGESTION Albuterol Sulfate (Ventolin Hfa) 200 Puff/8 Gm Aers, 2 PUFF INH Q4H PRN for SHORTNESS OF BREATH Albuterol Sulfate (Albuterol Sulfate) 2.5 Mg/3 Ml Nebu, 2.5 MG INH Q4H PRN for SHORTNESS OF BREATH Nitroglycerin (Nitrostat) 0.4 Mg Subl, 0.4 MG SL Q5MP PRN for CHEST PAIN Ondansetron HCl (Ondansetron HCl) 8 Mg Tab, 8 MG PO Q6H PRN for NAUSEA Prochlorperazine Maleate (Prochlorperazine Maleate) 10 Mg Tab, 10 MG PO Q8H PRN for NAUSEA Allergies Coded Allergies: Procaine (Verified Allergy, Severe, HEART STOPS, 04/23/16) Erythromycin (Verified Allergy, Unknown, 01/08/14) Penicillins (Unverified Allergy, Unknown, HIVES, 06/09/12) Penicillins Cross Reactors (Unverified Allergy, Unknown, HIVES, 06/09/12) Sulfa Drugs (Unverified Allergy, Unknown, BLISTERS, 06/09/12) Sulfa Drugs Cross Reactors (Unverified Allergy, Unknown, BLISTERS, 06/09/12) Tetracycline (Verified Allergy, Unknown, HIVES, 06/09/12) Nitrofurantoin (Unverified Adverse Reaction, Unknown, COMATOSE, NAUSEA AND DIARRHEA, 09/02/16) JAREN BEST Oct 27, 2016 19:59
[2016-10-27 20:00] VITALS: BP 132/70
[2016-10-27] MEDS ORDERED: FLUTICASONE PROP 0.05% NASAL SPRAY 16 GM (FLONASE) PRN (20:00)
[2016-10-27] MEDS ORDERED: ALBUTEROL SULFATE 2.5 MG/0.5 ML INH NEB SOLN INH PRN (20:00)
[2016-10-27] MEDS: VENLAFAXINE **XR** 75MG CAPSULE PO SCH (21:08)
[2016-10-27] MEDS: ATORVASTATIN 20 MG TAB PO SCH (21:08)
[2016-10-27] MEDS: FERROUS SULFATE 325MG TAB PO SCH (21:08)
[2016-10-27] MEDS: OMEPRAZOLE 20 MG CAP PO SCH (21:09)
[2016-10-27 22:00] VITALS: BP 139/61
[2016-10-27] MEDS: ADVAIR HFA 115/21MCG INHALER INH SCH (23:16)
[2016-10-28] MEDS: NS 1,000 ML IV SCH ×3 (00:13→20:59)
[2016-10-28 06:00] VITALS: BP 135/70
[2016-10-28] MEDS: LEVOTHYROXINE 137MCG TABLET (0.137MG) PO SCH (06:02)
[2016-10-28 06:21] LABS: BASO % 1.4 % (0.0-1.0); EOS % 0.6 % (0.0-3.0); LARGE UNSTAINED CELL % 1.4 % (0.0-4.0); LYMPH # 0.4 K/mm3 (1.5-4.5); LYMPH % 11.7 % (24.0-44.0); MEAN CORPUSCULAR HEMOGLOBIN 29.5 pg (27.0-33.0); MEAN CORPUSCULAR HGB CONC 31.8 g/dl (32.0-36.5); MEAN CORPUSCULAR VOLUME 92.9 fl (80.0-96.0); MONO # 0.1 K/mm3 (0.0-0.8); MONO % 3.9 % (0.0-5.0); NEUTROPHILS # 2.3 K/mm3 (1.8-7.7); RED CELL DISTRIBUTION WIDTH 15.2 % (11.5-14.5)
[2016-10-28 06:27] LABS: PLATELET COUNT, AUTOMATED 216 k/mm3 (150-450)
[2016-10-28 06:37] LABS: ALBUMIN 2.2 GM/DL (3.2-5.2); ALBUMIN/GLOBULIN RATIO 0.65 (1.00-1.93); ALKALINE PHOSPHATASE 92 U/L (45-117); ALT/SGPT 7 U/L (12-78); ANION GAP 8 MEQ/L (8-16); AST/SGOT 6 U/L (15-37); BILIRUBIN,TOTAL 0.4 MG/DL (0.2-1.0); BLOOD UREA NITROGEN 14 MG/DL (7-18); CALCIUM LEVEL 7.9 MG/DL (8.8-10.2); CARBON DIOXIDE LEVEL 23 MEQ/L (21-32); CHLORIDE LEVEL 111 MEQ/L (98-107); CREATININE FOR GFR 0.77 MG/DL (0.55-1.02); GLOMERULAR FILTRATION RATE > 60.0 (>39); GLUCOSE, FASTING 100 MG/DL (83-110); MAGNESIUM LEVEL 1.7 MG/DL (1.8-2.4); POTASSIUM SERUM 3.3 MEQ/L (3.5-5.1); SODIUM LEVEL 142 MEQ/L (136-145); TOTAL PROTEIN 5.6 GM/DL (6.4-8.2)
[2016-10-28] MEDS ORDERED: POTASSIUM CHLORIDE 10 MEQ SR TABLET PO ONE (07:30)
[2016-10-28] MEDS: HumaLOG INSULIN (NovoLOG) PER UNIT SC SCH ×4 (07:30→20:58)
[2016-10-28] MEDS ORDERED: MAG SULF 1GM/100ML (MAG RUN) 1 GM in APPROPRIATE DILUENT 1 EA IV ONE (07:30)
--- NOTE | 2016-10-28 08:36 | ECGEPIP ---
Stationary ECG Study [facility] - ED Test Date: 2016-10-27 Pat Name: MICHAEL HERNANDEZ Department: Room: - Gender: F Lens Blocker: charlotte : 1945 Requested By: Renetta Miranda Order Number: [id number] Reading MD: Nasir Jackson Measurements Intervals [place] Rate: 106 P: 51 VT: 187 QRS: -89 QRSD: 141 T: 75 QT: 355 QTc: 471 Interpretive Statements SINUS TACHYCARDIA RIGHT BUNDLE BRANCH BLOCK LEFT ANTERIOR FASCICULAR BLOCK POSSIBLE SEPTAL MYOCARDIAL INFARCTION, OF INDETERMINATE AGE Electronically Signed On 10-28-2016 8:36:30 EDT by Nasir Jackson
[2016-10-28] MEDS: ADVAIR HFA 115/21MCG INHALER INH SCH ×2 (09:00→19:35)
[2016-10-28] MEDS: ASPIRIN 81 MG ENTERIC TAB PO SCH (10:12)
[2016-10-28] MEDS: FERROUS SULFATE 325MG TAB PO SCH ×2 (10:12→20:58)
[2016-10-28] MEDS: OMEPRAZOLE 20 MG CAP PO SCH ×2 (10:12→20:58)
[2016-10-28] MEDS: CYANOCOBALAMIN 500 MCG TAB PO SCH (10:12)
--- NOTE | 2016-10-28 13:30 | IPNPDOC ---
Text Note Date of Service The patient was seen on 10/28/16. NOTE Subjective: Patient states her diarrhea is improving. No hematochezia or melanotic stools. No nausea/vomiting. Objective: Vitals: (see below) General: No acute distress, laying comfortably in bed. HEENT: Moist mucous membranes. Neck: No JVD or lymphadenopathy Cardiac: RRR, No murmurs Pulm: Clear to auscultation b/l. No wheezing, rhonchi Abd: NT/ND + BS Ext: No edema or cyanosis Labs (see below) Images: Abdominal x-ray 10/27/16 Impression: Unremarkable bowel gas pattern. Undigested tablets seen in the right upper quadrant. PleurX catheter noted in the right chest. Assessment/Plan 1. ETEC/STEC Escherichia coli on GI panel resulting in watery diarrhea. Patient recently had chemotherapy on with diarrhea starting on Wednesday. Diarrhea is starting to subside. We'll continue patient on IV fluids. On clear diet, tolerated well, walked masses tolerated. Zofran as needed. Continue supportive care. 2. Diabetes mellitus- hold Januvia, continue SSI. 3. History of hypertension- Norvasc being held as patient was relatively hypotensive on presentation. 4. GERD- on PPI 5. History of depression- continue home meds 6. History of hypothyroidism- continue Synthroid 7. Obstructive sleep apnea- on CPAP 8. History of multiple TIAs- continue aspirin and statin 9. Stage IV lung cancer on chemotherapy, received second cycle . Outpatient oncology/pulmonary follow-up. 10. Mild leukopenia/anemia likely secondary to recent chemotherapy. Stable. No need for transfusion this time. We'll continue to monitor. Dispo: SCDs Plan to discharge in the next 24 hours of continues to symptomatically improve. VS,Fishbone, I+O VS, Fishbone, I+O Laboratory Tests 10/28/16 05:21 Red Blood Count 3.77 L, Mean Corpuscular Volume 92.9, Mean Corpuscular Hemoglobin 29.5, Mean Corpuscular Hemoglobin Concent 31.8 L, Red Cell Distribution Width 15.2 H, Neutrophils (%) (Auto) 81.0 H, Lymphocytes (%) (Auto ) 11.7 L, Monocytes (%) (Auto) 3.9, Eosinophils (%) (Auto) 0.6, Basophils (%) ( Auto) 1.4 H, Neutrophils # (Auto) 2.3, Lymphocytes # (Auto) 0.4 L, Monocytes # ( Auto) 0.1, Eosinophils # (Auto) 0.0, Basophils # (Auto) 0.0, Calcium Level 7.9 L , Aspartate Amino Transf (AST/SGOT) 6 L, Alanine Aminotransferase (ALT/SGPT) 7 L , Alkaline Phosphatase 92, Total Bilirubin 0.4, Total Protein 5.6 L, Albumin 2.2 L Vital Signs Date Time Temp Pulse Resp B/P (MAP) Pulse Ox O2 Delivery O2 Flow Rate FiO2 10/28/16 06:00 97.2 90 20 135/70 (91) 93 10/27/16 20:15 Room Air I&O- Last 24 Hours up to 6 AM 10/28/16 05:59 Intake Total 580 ml Balance 580 ml HALIE NEVILLE MD Oct 28, 2016 13:30
[2016-10-28 14:00] VITALS: BP 138/73
[2016-10-28] MEDS: ATORVASTATIN 20 MG TAB PO SCH (20:58)
[2016-10-28] MEDS: VENLAFAXINE **XR** 75MG CAPSULE PO SCH (20:58)
[2016-10-28 22:00] VITALS: BP 128/63
[2016-10-28] MEDS: ACETAMINOPHEN TAB 650MG DOSE (2X325MG) PO PRN (22:25)
[2016-10-29] MEDS: LEVOTHYROXINE 137MCG TABLET (0.137MG) PO SCH (05:36)
[2016-10-29 06:00] VITALS: BP 129/65
[2016-10-29 06:55] LABS: ADD MANUAL DIFFER YES; MEAN CORPUSCULAR HEMOGLOBIN 29.5 pg (27.0-33.0); MEAN CORPUSCULAR HGB CONC 32.1 g/dl (32.0-36.5); MEAN CORPUSCULAR VOLUME 91.8 fl (80.0-96.0); PLATELET COUNT, AUTOMATED 154 k/mm3 (150-450); RED CELL DISTRIBUTION WIDTH 14.8 % (11.5-14.5); WHITE BLOOD COUNT 2.6 K/mm3 (4.0-10.0)
[2016-10-29 07:20] LABS: ALBUMIN 2.1 GM/DL (3.2-5.2); ALBUMIN/GLOBULIN RATIO 0.64 (1.00-1.93); ALKALINE PHOSPHATASE 75 U/L (45-117); ALT/SGPT 8 U/L (12-78); ANION GAP 9 MEQ/L (8-16); AST/SGOT 5 U/L (15-37); BILIRUBIN,TOTAL 0.2 MG/DL (0.2-1.0); BLOOD UREA NITROGEN 9 MG/DL (7-18); CALCIUM LEVEL 7.7 MG/DL (8.8-10.2); CARBON DIOXIDE LEVEL 23 MEQ/L (21-32); CHLORIDE LEVEL 113 MEQ/L (98-107); CREATININE FOR GFR 0.71 MG/DL (0.55-1.02); GLOMERULAR FILTRATION RATE > 60.0 (>39); GLUCOSE, FASTING 86 MG/DL (83-110); MAGNESIUM LEVEL 1.7 MG/DL (1.8-2.4); POTASSIUM SERUM 3.1 MEQ/L (3.5-5.1); SODIUM LEVEL 145 MEQ/L (136-145); TOTAL PROTEIN 5.4 GM/DL (6.4-8.2)
[2016-10-29 07:26] LABS: BANDS 2 % (< 11); BASOPHILS 1 % (0-4)
[2016-10-29 07:28] LABS: DOHLE BODIES 2+; TOXIC GRANULATION 2+
[2016-10-29 07:29] LABS: ANISOCYTOSIS 1+; POLYCHROMASIA 1+
[2016-10-29] MEDS: HumaLOG INSULIN (NovoLOG) PER UNIT SC SCH ×4 (07:30→21:00)
[2016-10-29] MEDS ORDERED: POTASSIUM CHLORIDE 10 MEQ SR TABLET PO ONE ×2 (09:00→11:00)
[2016-10-29] MEDS: MAG SULF 1GM/100ML (MAG RUN) 1 GM in APPROPRIATE DILUENT 1 EA IV SCH ×2 (09:30→11:22)
[2016-10-29] MEDS: ASPIRIN 81 MG ENTERIC TAB PO SCH (09:31)
[2016-10-29] MEDS: CYANOCOBALAMIN 500 MCG TAB PO SCH (09:31)
[2016-10-29] MEDS: OMEPRAZOLE 20 MG CAP PO SCH ×2 (09:31→21:00)
[2016-10-29] MEDS: FERROUS SULFATE 325MG TAB PO SCH ×2 (09:31→21:00)
[2016-10-29] MEDS: NS 1,000 ML IV SCH ×2 (09:32→17:08)
[2016-10-29] MEDS: ACETAMINOPHEN TAB 650MG DOSE (2X325MG) PO PRN (09:35)
[2016-10-29] MEDS: ADVAIR HFA 115/21MCG INHALER INH SCH ×2 (09:39→22:00)
[2016-10-29 14:00] VITALS: BP 120/58
--- NOTE | 2016-10-29 15:15 | IPNPDOC ---
Text Note Date of Service The patient was seen on 10/29/16. NOTE Subjective: Patient states her diarrhea was worse last evening with 7 episodes of watery diarrhea. No blood.. Objective: Vitals: (see below) General: No acute distress, laying comfortably in bed. HEENT: Moist mucous membranes. Neck: No JVD or lymphadenopathy Cardiac: RRR, No murmurs Pulm: Clear to auscultation b/l. No wheezing, rhonchi Abd: NT/ND + BS Ext: No edema or cyanosis Labs (see below) Images: Abdominal x-ray 10/27/16 Impression: Unremarkable bowel gas pattern. Undigested tablets seen in the right upper quadrant. PleurX catheter noted in the right chest. Assessment/Plan 1. ETEC/STEC Escherichia coli on GI panel resulting in watery diarrhea. States she had eaten at [employer] the day her symptoms began. Patient recently had chemotherapy on with diarrhea starting on Wednesday. Diarrhea is starting to subside. We'll continue patient on IV fluids. On clear diet, tolerated well, walked masses tolerated. Zofran as needed. Continue supportive care. Antibiotics held as patient has increased risk of HUS. 2. Diabetes mellitus- hold Januvia, continue SSI. 3. History of hypertension- Norvasc being held as patient was relatively hypotensive on presentation. 4. GERD- on PPI 5. History of depression- continue home meds 6. History of hypothyroidism- continue Synthroid 7. Obstructive sleep apnea- on CPAP 8. History of multiple TIAs- continue aspirin and statin 9. Stage IV lung cancer on chemotherapy, received second cycle . Outpatient oncology/pulmonary follow-up. 10. Mild leukopenia/anemia likely secondary to recent chemotherapy. Stable. No need for transfusion this time. We'll continue to monitor. 11. Hypokalemia/hypomagnesemia - replaced. Dispo: SCDs VS,Fishbone, I+O VS, Fishbone, I+O Laboratory Tests 10/29/16 06:20 Red Blood Count 3.47 L, Mean Corpuscular Volume 91.8, Mean Corpuscular Hemoglobin 29.5, Mean Corpuscular Hemoglobin Concent 32.1, Red Cell Distribution Width 14.8 H, Calcium Level 7.7 L, Aspartate Amino Transf (AST/SGOT ) 5 L, Alanine Aminotransferase (ALT/SGPT) 8 L, Alkaline Phosphatase 75, Total Bilirubin 0.2, Total Protein 5.4 L, Albumin 2.1 L Vital Signs Date Time Temp Pulse Resp B/P (MAP) Pulse Ox O2 Delivery O2 Flow Rate FiO2 10/29/16 14:00 99.2 82 18 120/58 (78) 93 Room Air I&O- Last 24 Hours up to 6 AM 10/29/16 06:00 Intake Total 4420 ml Output Total 0 ml Balance 4420 ml HALIE NEVILLE MD Oct 29, 2016 15:15
[2016-10-29] MEDS: VENLAFAXINE **XR** 75MG CAPSULE PO SCH (21:00)
[2016-10-29] MEDS: ATORVASTATIN 20 MG TAB PO SCH (21:00)
[2016-10-29 22:00] VITALS: BP 159/78
[2016-10-30 06:00] VITALS: BP 146/65
[2016-10-30] MEDS: LEVOTHYROXINE 137MCG TABLET (0.137MG) PO SCH (06:05)
[2016-10-30] MEDS: NS 1,000 ML IV SCH ×2 (06:05→15:09)
[2016-10-30 06:48] LABS: BASO % 0.4 % (0.0-1.0); EOS % 1.5 % (0.0-3.0); LARGE UNSTAINED CELL # 0.1 K/mm3 (0.0-0.4); LARGE UNSTAINED CELL % 2.9 % (0.0-4.0); LYMPH # 0.6 K/mm3 (1.5-4.5); LYMPH % 17.7 % (24.0-44.0); MEAN CORPUSCULAR HEMOGLOBIN 29.8 pg (27.0-33.0); MEAN CORPUSCULAR HGB CONC 33.2 g/dl (32.0-36.5); MEAN CORPUSCULAR VOLUME 89.6 fl (80.0-96.0); MONO # 0.2 K/mm3 (0.0-0.8); MONO % 5.9 % (0.0-5.0); NEUTROPHILS # 1.9 K/mm3 (1.8-7.7); NEUTROPHILS % 71.6 % (36.0-66.0); PLATELET COUNT, AUTOMATED 138 k/mm3 (150-450); RED CELL DISTRIBUTION WIDTH 14.9 % (11.5-14.5); WHITE BLOOD COUNT 2.7 K/mm3 (4.0-10.0)
[2016-10-30 07:16] LABS: ALBUMIN 2.4 GM/DL (3.2-5.2); ALBUMIN/GLOBULIN RATIO 0.67 (1.00-1.93); ALKALINE PHOSPHATASE 80 U/L (45-117); ALT/SGPT 10 U/L (12-78); ANION GAP 10 MEQ/L (8-16); AST/SGOT 7 U/L (15-37); BILIRUBIN,TOTAL 0.2 MG/DL (0.2-1.0); BLOOD UREA NITROGEN 4 MG/DL (7-18); CALCIUM LEVEL 8.2 MG/DL (8.8-10.2); CARBON DIOXIDE LEVEL 20 MEQ/L (21-32); CHLORIDE LEVEL 115 MEQ/L (98-107); CREATININE FOR GFR 0.68 MG/DL (0.55-1.02); GLOMERULAR FILTRATION RATE > 60.0 (>39); GLUCOSE, FASTING 94 MG/DL (83-110); MAGNESIUM LEVEL 1.6 MG/DL (1.8-2.4); POTASSIUM SERUM 3.1 MEQ/L (3.5-5.1); SODIUM LEVEL 145 MEQ/L (136-145)
[2016-10-30] MEDS: HumaLOG INSULIN (NovoLOG) PER UNIT SC SCH ×4 (07:30→20:28)
[2016-10-30] MEDS ORDERED: POTASSIUM CHLORIDE 10 MEQ SR TABLET PO ONE ×2 (08:30→10:30)
[2016-10-30] MEDS: ADVAIR HFA 115/21MCG INHALER INH SCH ×2 (08:35→20:10)
[2016-10-30] MEDS: FERROUS SULFATE 325MG TAB PO SCH ×2 (08:46→20:25)
[2016-10-30] MEDS: ASPIRIN 81 MG ENTERIC TAB PO SCH (08:46)
[2016-10-30] MEDS: CYANOCOBALAMIN 500 MCG TAB PO SCH (08:46)
[2016-10-30] MEDS: MAG SULF 1GM/100ML (MAG RUN) 1 GM in APPROPRIATE DILUENT 1 EA IV SCH ×2 (08:46→11:23)
[2016-10-30] MEDS: OMEPRAZOLE 20 MG CAP PO SCH ×2 (08:46→20:24)
[2016-10-30] MEDS: NYSTATIN 100,000 UNITS/GM TOPICAL PWD 15 GM TOP SCH ×2 (12:51→20:26)
[2016-10-30 14:00] VITALS: BP 131/61
--- NOTE | 2016-10-30 14:22 | IPNPDOC ---
Text Note Date of Service The patient was seen on 10/30/16. NOTE Subjective: Patient states she still has watery diarrhea. Tolerating diet. Objective: Vitals: (see below) General: No acute distress, laying comfortably in bed. HEENT: Moist mucous membranes. Neck: No JVD or lymphadenopathy Cardiac: RRR, No murmurs Pulm: Clear to auscultation b/l. No wheezing, rhonchi. right pleurx cath in tact. No leak. Abd: NT/ND + BS Ext: No edema or cyanosis Labs (see below) Images: Abdominal x-ray 10/27/16 Impression: Unremarkable bowel gas pattern. Undigested tablets seen in the right upper quadrant. PleurX catheter noted in the right chest. Assessment/Plan 1. ETEC/STEC Escherichia coli on GI panel resulting in watery diarrhea. States she had eaten at [employer] the day her symptoms began. Patient recently had chemotherapy on with diarrhea starting on Wednesday. We'll continue patient on IV fluids. Diet advanced, tolerated well. Zofran as needed. Continue supportive care. Antibiotics held as patient has increased risk of HUS. ID consulted. 2. Diabetes mellitus- hold Januvia, continue SSI. 3. History of hypertension- Norvasc being held as patient was relatively hypotensive on presentation. 4. GERD- on PPI 5. History of depression- continue home meds 6. History of hypothyroidism- continue Synthroid 7. Obstructive sleep apnea- on CPAP 8. History of multiple TIAs- continue aspirin and statin 9. Stage IV lung cancer on chemotherapy, received second cycle . Outpatient oncology/pulmonary follow-up. 10. Mild leukopenia/anemia likely secondary to recent chemotherapy. Stable. No need for transfusion this time. We'll continue to monitor. 11. Hypokalemia/hypomagnesemia - replaced. Dispo: SCDs VS,Fishbone, I+O VS, Fishbone, I+O Laboratory Tests 10/30/16 06:33 Red Blood Count 3.44 L, Mean Corpuscular Volume 89.6, Mean Corpuscular Hemoglobin 29.8, Mean Corpuscular Hemoglobin Concent 33.2, Red Cell Distribution Width 14.9 H, Neutrophils (%) (Auto) 71.6 H, Lymphocytes (%) (Auto ) 17.7 L, Monocytes (%) (Auto) 5.9 H, Eosinophils (%) (Auto) 1.5, Basophils (%) (Auto) 0.4, Neutrophils # (Auto) 1.9, Lymphocytes # (Auto) 0.6 L, Monocytes # ( Auto) 0.2, Eosinophils # (Auto) 0.0, Basophils # (Auto) 0.0, Calcium Level 8.2 L , Aspartate Amino Transf (AST/SGOT) 7 L, Alanine Aminotransferase (ALT/SGPT) 10 L, Alkaline Phosphatase 80, Total Bilirubin 0.2, Total Protein 6.0 L, Albumin 2.4 L Vital Signs Date Time Temp Pulse Resp B/P (MAP) Pulse Ox O2 Delivery O2 Flow Rate FiO2 10/30/16 06:00 98.6 87 19 146/65 (92) 94 Room Air I&O- Last 24 Hours up to 6 AM 10/30/16 06:00 Intake Total 2780 ml Output Total 0 ml Balance 2780 ml HALIE NEVILLE MD Oct 30, 2016 14:22
[2016-10-30] MEDS: VENLAFAXINE **XR** 75MG CAPSULE PO SCH (20:24)
[2016-10-30] MEDS: ATORVASTATIN 20 MG TAB PO SCH (20:25)
[2016-10-30] MEDS: ACETAMINOPHEN TAB 650MG DOSE (2X325MG) PO PRN (20:25)
[2016-10-30] MEDS ORDERED: PROCHLORPERAZINE 5 MG TAB (S0183) PO PRN (21:45)
[2016-10-30 22:00] VITALS: BP 147/70
--- NOTE | 2016-10-30 22:12 | CR ---
DATE OF CONSULTATION: 10/29/2016 Asked to consult by hospitalist for evaluation of the diarrhea from enterotoxigenic Escherichia (E) coli and Shiga-like E. coli, not O157. HISTORY OF PRESENT ILLNESS: Mrs. Shook is a 71-year-old female who was recently diagnosed with metastatic lung cancer in August 2016. She was followed up by Dr. Coe and Dr. Martínez. CT-guided biopsy done on September 02 showed poorly differentiated adenocarcinoma. She is followed up with Dr. Daniels for oncology and has started chemotherapy. The patient developed a malignant pleural effusion and had a PleurX catheter placed on September 21. She had moved in to be with her son and [id number] and had been living with them. 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 The patient slowly had recovered until she developed this acute onset of diarrhea, which was nonbloody, on Wednesday prior to admission. The patient had two rounds of chemotherapy 3 weeks apart with the most recent one being on the prior to admission, a week ago. She had some nausea and vomiting, which have now resolved. She was admitted for dehydration. The patient still had at least six bowel movements today but started feeling better. She states it is not all as liquidy, and there are some formed stools. She denied having any fever or chills. She is alert and states wants to move back to her house, where she feels she does better in the building with senior housing. She feels she probably acquired the infection from the animals in the barn and the food at the home. PAST MEDICAL HISTORY: Significant for: 1. Diabetes. 2. Hypertension. 3. Gastroesophageal reflux. 4. Depression. 5. Hypothyroidism. 6. Sleep apnea, on continuous positive airway pressure (CPAP). 7. Irritable bowel syndrome. 8. Transient ischemic attacks (TIAs). 9. Hyperlipidemia. 10. Stage IV adenocarcinoma of the lung with malignant pleural effusion status post PleurX catheter. There is about 75 mL of pleural fluid that drains every 3 days. PAST SURGICAL HISTORY: 1. Cholecystectomy. 2. Right PleurX catheter. 3. Back surgery. 4. Tonsillectomy. 5. Hysterectomy. 6. Tubal ligation. 7. Bilateral cataract surgery. FAMILY HISTORY: Diabetes and hypertension. SOCIAL HISTORY: She is currently living with her son but wants to go back home. She has an apartment in [place] in [place] [facility], and she feels very safe in that area. She drives. She smokes approximately five cigarettes a day. Used to smoke a pack a day until she was diagnosed with cancer. She denies alcohol or drug use. ALLERGIES: ERYTHROMYCIN, MACROBID, PENICILLIN, PROCAINE, SULFA, TETRACYCLINE. REVIEW OF SYSTEMS: She had some chills but no fever. She had blurry vision. No sore throat. No chest pain. No shortness of breath. She has chronic cough. She has nausea and vomiting, which have resolved. Diarrhea persists but has improved. She has back pain. Denies any rashes. MEDICATIONS: - aspirin 81 mg daily - vitamin B12 at 1000 mcg daily - levothyroxine 137 by mouth daily - Humalog sliding scale - Lipitor 40 mg by mouth at bedtime - ferrous sulfate 325 mg by mouth twice a day - Prilosec 40 mg by mouth twice a day - Advair two puffs inhaled twice a day - Effexor XR 75 mg by mouth at bedtime - albuterol nebulizer every 6 as needed j - Flonase one spray daily - Zofran as needed LABORATORY DATA: White count on admission was 5, currently 2.6, hemoglobin 10.2, hematocrit 31.8, platelets 154. Sodium 145, potassium 4.1, chloride 113, bicarbonate 23, BUN 9, creatinine 0.71, glucose 86, calcium 7.7, magnesium 1.7. AST 5, ALT 8. CRP 3.89. Total protein 5.4, albumin 2.1. Microbiology: On October 27, Stool polymerase chain reaction (PCR) were positive for enteropathogenic E. coli as well as Shiga-like toxin, not O157. Negative stool Hemoccult. Abdominal x-ray showed unremarkable bowel-gas pattern. Undigested tablet seen in the right upper quadrant and PleurX catheter in the right upper chest. PHYSICAL EXAMINATION: She is a healthy pleasant elderly female in no acute distress. Maximum 99.2, pulse 82, respirations 18, blood pressure 120/58, oxygen saturation 93% on room air. She has been afebrile throughout admission. HEART: Normal S1, S2. No murmurs. LUNGS: Few expiratory wheezes bilaterally. Right PleurX catheter on the right upper quadrant. ABDOMEN: Soft, mildly tender in the lower quadrants. No rebound. Positive bowel sounds but no guarding. BACK: Mild lumbosacral tenderness. No costovertebral angle (CVA) tenderness. EXTREMITIES: No clubbing, cyanosis or edema. No calf tenderness. SKIN: No rashes. NECK: Supple. No jugular venous distention (JVD). No bruits. NEUROLOGIC: Normal. Alert and oriented times three. Intake and output: Intake 2280. Output was not recorded, but she had four bowel movement today compared to 10 yesterday. IMPRESSION: This is a 73-year-old female who recently received chemotherapy. Follows up with Dr. Daniels for metastatic lung cancer. Has a PleurX catheter. Received second cycle of chemotherapy a week ago . Has mild neutropenia, mild leukopenia, and diarrhea from the Escherichia (E) coli Shiga toxin, which is not hemorrhagic. The patient states she is feeling better. Nausea and vomiting have resolved. She is eating. Diarrhea has decreased, and she has some formed stools. She is afebrile. Seems to be doing fairly well. The patient had Carrillo's the day of admission but feels like she might have acquired the infection from being around the animals and the barn. PLAN: Continue with supportive care with IV fluids. There is no need for antibiotics at this time. If she becomes more neutropenic with worsening diarrhea, would consider using a quinolone, Levaquin for 5-7 days, but if she is not febrile and diarrhea continues to improve, I would avoid antibiotics, as there is an increased risk of hemolytic uremic syndrome in up to 9% of adults. The patient has decided she is not pursuing chemotherapy, as she feels that her quality of life will not improve and will prolong it unnecessarily. I did discuss with her palliative care or hospice care. She will be discussing that with her primary team and the oncologist.
[2016-10-31] MEDS: NS 1,000 ML IV SCH ×3 (01:09→23:04)
--- NOTE | 2016-10-31 04:57 | IPN ---
DATE OF SERVICE: 10/30/2016 Enriqueta is doing much better today. She is in good spirits. She had some loose stools again today, but no nausea or vomiting. She had one episode of incontinence at night and she was frustrated with that. Her appetite is great. PHYSICAL EXAMINATION: Temperature is 98.6, maximum temperature (T-max) 99.2 yesterday, pulse 87, respirations 19, blood pressure 146/65, oxygen saturation 94% on room air. Heart: Normal S1, S2 with no murmurs. Lungs with expiratory rhonchi bilaterally and few wheezes. Abdomen is soft, nontender. No visceromegaly. Extremities: No edema. No calf tenderness. No clubbing or cyanosis. LABORATORY DATA: White count is 2.7, hemoglobin 10.2, hematocrit 30.8, platelets 138, 71% neutrophils, 17% lymphocytes, 6% monocytes. Sodium 145, potassium 3.1, chloride 115, bicarbonate 20, BUN 4, creatinine 0.6, glucose 94, calcium 8.2, magnesium 1.6, AST 70, ALT 10, CRP 3.38. Stool was positive for enterotoxigenic Escherichia (E) coli and Shiga-like E. coli. IMPRESSION: 1. Diarrhea with Shiga-like toxin Escherichia (E) coli resulting in watery diarrhea, improving on no antibiotics. Continue supportive care as there is a risk of hemolytic uremic syndrome. The patient is clinically improving. 2. Mild pancytopenia due to chemotherapy. The patient was scheduled to have another round of chemotherapy on 11/12, which will have to be on hold. The patient is wondering whether she wants to continue with her chemotherapy. 3. Malignant pleural effusion from stage IV lung cancer. The patient has a PleurX catheter in the right chest that is drained every 3 days. PLAN: Continue supportive measures. Will discuss the case with Dr. Daniels.
[2016-10-31] MEDS: LEVOTHYROXINE 137MCG TABLET (0.137MG) PO SCH (05:42)
[2016-10-31 05:52] LABS: BASO % 0.4 % (0.0-1.0); EOS % 1.7 % (0.0-3.0); LARGE UNSTAINED CELL # 0.1 K/mm3 (0.0-0.4); LARGE UNSTAINED CELL % 3.1 % (0.0-4.0); LYMPH # 0.7 K/mm3 (1.5-4.5); LYMPH % 26.5 % (24.0-44.0); MEAN CORPUSCULAR HEMOGLOBIN 29.7 pg (27.0-33.0); MEAN CORPUSCULAR HGB CONC 32.9 g/dl (32.0-36.5); MEAN CORPUSCULAR VOLUME 90.5 fl (80.0-96.0); MONO # 0.2 K/mm3 (0.0-0.8); MONO % 8.3 % (0.0-5.0); NEUTROPHILS # 1.5 K/mm3 (1.8-7.7); NEUTROPHILS % 60.2 % (36.0-66.0); PLATELET COUNT, AUTOMATED 109 k/mm3 (150-450); RED CELL DISTRIBUTION WIDTH 14.8 % (11.5-14.5); WHITE BLOOD COUNT 2.4 K/mm3 (4.0-10.0)
[2016-10-31 06:00] VITALS: BP 135/63
[2016-10-31 06:05] LABS: ALBUMIN 2.3 GM/DL (3.2-5.2); ALBUMIN/GLOBULIN RATIO 0.64 (1.00-1.93); ALKALINE PHOSPHATASE 86 U/L (45-117); ALT/SGPT 17 U/L (12-78); ANION GAP 6 MEQ/L (8-16); AST/SGOT 11 U/L (15-37); BILIRUBIN,TOTAL 0.3 MG/DL (0.2-1.0); BLOOD UREA NITROGEN 3 MG/DL (7-18); CALCIUM LEVEL 8.2 MG/DL (8.8-10.2); CARBON DIOXIDE LEVEL 25 MEQ/L (21-32); CHLORIDE LEVEL 113 MEQ/L (98-107); CREATININE FOR GFR 0.73 MG/DL (0.55-1.02); GLOMERULAR FILTRATION RATE > 60.0 (>39); GLUCOSE, FASTING 86 MG/DL (83-110); MAGNESIUM LEVEL 1.5 MG/DL (1.8-2.4); POTASSIUM SERUM 3.5 MEQ/L (3.5-5.1); SODIUM LEVEL 144 MEQ/L (136-145); TOTAL PROTEIN 5.9 GM/DL (6.4-8.2)
[2016-10-31] MEDS: HumaLOG INSULIN (NovoLOG) PER UNIT SC SCH ×4 (07:30→21:00)
[2016-10-31] MEDS: ADVAIR HFA 115/21MCG INHALER INH SCH ×2 (07:37→19:22)
[2016-10-31] MEDS ORDERED: POTASSIUM CHLORIDE 10 MEQ SR TABLET PO ONE (08:15)
[2016-10-31] MEDS: ASPIRIN 81 MG ENTERIC TAB PO SCH (09:00)
[2016-10-31] MEDS: MAG SULF 1GM/100ML (MAG RUN) 1 GM in APPROPRIATE DILUENT 1 EA IV SCH ×2 (09:00→10:00)
[2016-10-31] MEDS: NYSTATIN 100,000 UNITS/GM TOPICAL PWD 15 GM TOP SCH ×2 (09:00→21:17)
[2016-10-31] MEDS: CYANOCOBALAMIN 500 MCG TAB PO SCH (09:00)
[2016-10-31] MEDS: FERROUS SULFATE 325MG TAB PO SCH ×2 (09:00→21:16)
[2016-10-31] MEDS: OMEPRAZOLE 20 MG CAP PO SCH ×2 (09:00→21:16)
[2016-10-31] MEDS ORDERED: ISOVUE-370 76% 100ML VIAL (Q9967) As Ordered ONE (11:38)
[2016-10-31 14:00] VITALS: BP 146/64
--- NOTE | 2016-10-31 14:26 | IPNPDOC ---
Text Note Date of Service The patient was seen on 10/31/16. NOTE Subjective: Patient states she still has watery diarrhea, some decrease in frequency. Tolerating regular diet. Objective: Vitals: (see below) General: No acute distress, laying comfortably in bed. HEENT: Moist mucous membranes. Neck: No JVD or lymphadenopathy Cardiac: RRR, No murmurs Pulm: Clear to auscultation b/l. No wheezing, rhonchi. right pleurx cath in tact. No leak. Abd: NT/ND + BS Ext: No edema or cyanosis Labs (see below) Images: Abdominal x-ray 10/27/16 Impression: Unremarkable bowel gas pattern. Undigested tablets seen in the right upper quadrant. PleurX catheter noted in the right chest. Assessment/Plan 1. ETEC/STEC Escherichia coli on GI panel resulting in watery diarrhea. States she had eaten at [employer] the day her symptoms began. Patient recently had chemotherapy on with diarrhea starting on Wednesday. We'll continue patient on IV fluids. Diet advanced, tolerated well. Zofran as needed. Continue supportive care. Antibiotics held as patient has increased risk of HUS. ID consulted. 2. Diabetes mellitus- hold Januvia, continue SSI. 3. History of hypertension- Norvasc being held as patient was relatively hypotensive on presentation. 4. GERD- on PPI 5. History of depression- continue home meds 6. History of hypothyroidism- continue Synthroid 7. Obstructive sleep apnea- on CPAP 8. History of multiple TIAs- continue aspirin and statin 9. Stage IV lung cancer on chemotherapy, received second cycle . Outpatient oncology/pulmonary follow-up. 10. Pancytopenia likely secondary to recent chemotherapy and infection. Stable. No need for transfusion this time. We'll continue to monitor. 11. Hypokalemia/hypomagnesemia - replaced. Dispo: SCDs Improving from yesterday. VS,Fishbone, I+O VS, Fishbone, I+O Laboratory Tests 10/31/16 05:25 Red Blood Count 3.27 L, Mean Corpuscular Volume 90.5, Mean Corpuscular Hemoglobin 29.7, Mean Corpuscular Hemoglobin Concent 32.9, Red Cell Distribution Width 14.8 H, Neutrophils (%) (Auto) 60.2, Lymphocytes (%) (Auto) 26.5, Monocytes (%) (Auto) 8.3 H, Eosinophils (%) (Auto) 1.7, Basophils (%) ( Auto) 0.4, Neutrophils # (Auto) 1.5 L, Lymphocytes # (Auto) 0.7 L, Monocytes # ( Auto) 0.2, Eosinophils # (Auto) 0.0, Basophils # (Auto) 0.0, Calcium Level 8.2 L , Aspartate Amino Transf (AST/SGOT) 11 L, Alanine Aminotransferase (ALT/SGPT) 17 , Alkaline Phosphatase 86, Total Bilirubin 0.3, Total Protein 5.9 L, Albumin 2.3 L Vital Signs Date Time Temp Pulse Resp B/P (MAP) Pulse Ox O2 Delivery O2 Flow Rate FiO2 10/31/16 06:00 98.5 76 18 135/63 (87) 95 Room Air I&O- Last 24 Hours up to 6 AM 10/31/16 05:59 Intake Total 4100 ml Output Total 450 ml Balance 3650 ml HALIE NEVILLE MD Oct 31, 2016 14:26
[2016-10-31 20:50] VITALS: BP 153/72
[2016-10-31] MEDS: ATORVASTATIN 20 MG TAB PO SCH (21:15)
[2016-10-31] MEDS: VENLAFAXINE **XR** 75MG CAPSULE PO SCH (21:16)
[2016-11-01 06:00] VITALS: BP 156/73
[2016-11-01] MEDS: LEVOTHYROXINE 137MCG TABLET (0.137MG) PO SCH (06:13)
[2016-11-01 06:15] LABS: BASO % 0.4 % (0.0-1.0); EOS % 0.9 % (0.0-3.0); LARGE UNSTAINED CELL # 0.1 K/mm3 (0.0-0.4); LARGE UNSTAINED CELL % 2.8 % (0.0-4.0); LYMPH # 0.8 K/mm3 (1.5-4.5); LYMPH % 20.6 % (24.0-44.0); MEAN CORPUSCULAR HGB CONC 33.4 g/dl (32.0-36.5); MEAN CORPUSCULAR VOLUME 89.6 fl (80.0-96.0); MONO # 0.3 K/mm3 (0.0-0.8); MONO % 8.4 % (0.0-5.0); NEUTROPHILS # 2.4 K/mm3 (1.8-7.7); PLATELET COUNT, AUTOMATED 104 k/mm3 (150-450); RED CELL DISTRIBUTION WIDTH 15.1 % (11.5-14.5); WHITE BLOOD COUNT 3.6 K/mm3 (4.0-10.0)
[2016-11-01 06:51] LABS: ALBUMIN 2.1 GM/DL (3.2-5.2); ALBUMIN/GLOBULIN RATIO 0.75 (1.00-1.93); ALKALINE PHOSPHATASE 76 U/L (45-117); ALT/SGPT 15 U/L (12-78); ANION GAP 12 MEQ/L (8-16); AST/SGOT 9 U/L (15-37); BILIRUBIN,TOTAL 0.1 MG/DL (0.2-1.0); BLOOD UREA NITROGEN 3 MG/DL (7-18); CALCIUM LEVEL 7.1 MG/DL (8.8-10.2); CARBON DIOXIDE LEVEL 23 MEQ/L (21-32); CHLORIDE LEVEL 113 MEQ/L (98-107); CREATININE FOR GFR 0.58 MG/DL (0.55-1.02); GLOMERULAR FILTRATION RATE > 60.0 (>39); GLUCOSE, FASTING 81 MG/DL (83-110); MAGNESIUM LEVEL 1.5 MG/DL (1.8-2.4); POTASSIUM SERUM 3.2 MEQ/L (3.5-5.1); SODIUM LEVEL 148 MEQ/L (136-145); TOTAL PROTEIN 4.9 GM/DL (6.4-8.2)
[2016-11-01] MEDS: NS 1,000 ML IV SCH (07:09)
[2016-11-01] MEDS: HumaLOG INSULIN (NovoLOG) PER UNIT SC SCH ×4 (07:30→20:46)
[2016-11-01] MEDS: ADVAIR HFA 115/21MCG INHALER INH SCH ×2 (07:47→19:36)
[2016-11-01] MEDS ORDERED: POTASSIUM CHLORIDE 10 MEQ SR TABLET PO ONE ×2 (08:45→11:00)
[2016-11-01] MEDS: ASPIRIN 81 MG ENTERIC TAB PO SCH (10:25)
[2016-11-01] MEDS: OMEPRAZOLE 20 MG CAP PO SCH ×2 (10:26→20:46)
[2016-11-01] MEDS: MAG SULF 1GM/100ML (MAG RUN) 1 GM in APPROPRIATE DILUENT 1 EA IV SCH ×2 (10:26→13:13)
[2016-11-01] MEDS: CYANOCOBALAMIN 500 MCG TAB PO SCH (10:26)
[2016-11-01] MEDS: FERROUS SULFATE 325MG TAB PO SCH ×2 (10:26→20:46)
[2016-11-01] MEDS: NYSTATIN 100,000 UNITS/GM TOPICAL PWD 15 GM TOP SCH ×2 (10:27→20:47)
[2016-11-01] MEDS: D5W/0.45% SODIUM CHLORIDE 1,000 ML IV SCH ×3 (10:30→23:59)
--- NOTE | 2016-11-01 12:08 | IPNPDOC ---
Text Note Date of Service The patient was seen on 11/01/16. NOTE Subjective: Some improvements since yesterday. Still has diarrhea. Tolerating regular diet. Objective: Vitals: (see below) General: No acute distress, laying comfortably in bed. HEENT: Moist mucous membranes. Neck: No JVD or lymphadenopathy Cardiac: RRR, No murmurs Pulm: Clear to auscultation b/l. No wheezing, rhonchi. right pleurx cath in tact. No leak. Abd: NT/ND + BS Ext: No edema or cyanosis Labs (see below) Images: Abdominal x-ray 10/27/16 Impression: Unremarkable bowel gas pattern. Undigested tablets seen in the right upper quadrant. PleurX catheter noted in the right chest. Assessment/Plan 1. ETEC/STEC Escherichia coli on GI panel resulting in watery diarrhea. States she had eaten at [employer] the day her symptoms began. Patient recently had chemotherapy on with diarrhea starting on Wednesday. We'll continue patient on IV fluids. Diet advanced, tolerated well. Zofran as needed. Continue supportive care. Antibiotics held as patient has increased risk of HUS. ID consulted. 2. Diabetes mellitus- hold Januvia, continue SSI. 3. History of hypertension- Norvasc being held as patient was relatively hypotensive on presentation. 4. GERD- on PPI 5. History of depression- continue home meds 6. History of hypothyroidism- continue Synthroid 7. Obstructive sleep apnea- on CPAP 8. History of multiple TIAs- continue aspirin and statin 9. Stage IV lung cancer on chemotherapy, received second cycle . Outpatient oncology/pulmonary follow-up. 10. Pancytopenia likely secondary to recent chemotherapy and infection. Stable. No need for transfusion this time. We'll continue to monitor. 11. Hypokalemia/hypomagnesemia - replaced. Dispo: SCDs Patient is getting out of bed and ambulating. VS,Fishbone, I+O VS, Fishbone, I+O Laboratory Tests 11/01/16 05:34 Red Blood Count 3.08 L, Mean Corpuscular Volume 89.6, Mean Corpuscular Hemoglobin 30.0, Mean Corpuscular Hemoglobin Concent 33.4, Red Cell Distribution Width 15.1 H, Neutrophils (%) (Auto) 67.0 H, Lymphocytes (%) (Auto ) 20.6 L, Monocytes (%) (Auto) 8.4 H, Eosinophils (%) (Auto) 0.9, Basophils (%) (Auto) 0.4, Neutrophils # (Auto) 2.4, Lymphocytes # (Auto) 0.8 L, Monocytes # ( Auto) 0.3, Eosinophils # (Auto) 0.0, Basophils # (Auto) 0.0, Calcium Level 7.1 L , Aspartate Amino Transf (AST/SGOT) 9 L, Alanine Aminotransferase (ALT/SGPT) 15 , Alkaline Phosphatase 76, Total Bilirubin 0.1 #L, Total Protein 4.9 L, Albumin 2.1 L Vital Signs Date Time Temp Pulse Resp B/P (MAP) Pulse Ox O2 Delivery O2 Flow Rate FiO2 11/01/16 06:00 97.0 88 20 156/73 (100) 90 Room Air I&O- Last 24 Hours up to 6 AM 11/01/16 06:00 Intake Total 3460 ml Output Total 700 ml Balance 2760 ml HALIE NEVILLE MD Nov 01, 2016 12:08
[2016-11-01 14:00] VITALS: BP 153/68
[2016-11-01] MEDS: ATORVASTATIN 20 MG TAB PO SCH (20:46)
[2016-11-01] MEDS: VENLAFAXINE **XR** 75MG CAPSULE PO SCH (20:46)
[2016-11-01 22:00] VITALS: BP 141/67
[2016-11-02] MEDS: LEVOTHYROXINE 137MCG TABLET (0.137MG) PO SCH (05:31)
[2016-11-02 06:00] VITALS: BP 149/70
[2016-11-02 06:04] LABS: BASO % 0.3 % (0.0-1.0); EOS % 0.7 % (0.0-3.0); LARGE UNSTAINED CELL # 0.1 K/mm3 (0.0-0.4); LARGE UNSTAINED CELL % 1.5 % (0.0-4.0); MEAN CORPUSCULAR HEMOGLOBIN 29.9 pg (27.0-33.0); MEAN CORPUSCULAR HGB CONC 33.1 g/dl (32.0-36.5); MEAN CORPUSCULAR VOLUME 90.2 fl (80.0-96.0); MONO # 0.5 K/mm3 (0.0-0.8); MONO % 6.9 % (0.0-5.0); NEUTROPHILS % 76.5 % (36.0-66.0); PLATELET COUNT, AUTOMATED 109 k/mm3 (150-450); RED CELL DISTRIBUTION WIDTH 15.1 % (11.5-14.5); WHITE BLOOD COUNT 6.5 K/mm3 (4.0-10.0)
[2016-11-02 06:23] LABS: ALBUMIN/GLOBULIN RATIO 0.59 (1.00-1.93); ALKALINE PHOSPHATASE 85 U/L (45-117); ALT/SGPT 15 U/L (12-78); ANION GAP 9 MEQ/L (8-16); AST/SGOT 9 U/L (15-37); BILIRUBIN,TOTAL 0.1 MG/DL (0.2-1.0); BLOOD UREA NITROGEN 2 MG/DL (7-18); CALCIUM LEVEL 7.3 MG/DL (8.8-10.2); CARBON DIOXIDE LEVEL 25 MEQ/L (21-32); CHLORIDE LEVEL 113 MEQ/L (98-107); GLOMERULAR FILTRATION RATE > 60.0 (>39); GLUCOSE, FASTING 107 MG/DL (83-110); MAGNESIUM LEVEL 1.4 MG/DL (1.8-2.4); POTASSIUM SERUM 3.7 MEQ/L (3.5-5.1); SODIUM LEVEL 147 MEQ/L (136-145); TOTAL PROTEIN 5.4 GM/DL (6.4-8.2)
--- NOTE | 2016-11-02 07:21 | REP ---
Clinical: Followup lung cancer. Technique: Axial contrast enhanced images from the thoracic inlet to the upper abdomen using 100 ml Isovue 370 intravenous contrast material with coronal and sagittal re-formations. Comparison: 09/21/2016. Findings: The patient's right upper lobe neoplastic consolidation is essentially unchanged from prior examination along with irregular circumferential pleural thickening involving the right hemithorax. A right-sided chest tube is identified extending to the posterior apex and the previously noted moderate right pleural effusion is significantly improved with only minimal residual pleural fluid noted. Scattered bilateral pulmonary nodules most compatible with metastatic disease are essentially unchanged and measure up to approximately 11 mm diameter. Underlying chronic fibrosis and interstitial changes are appreciated and small amount of superimposed right basilar atelectasis cannot be excluded. Mediastinal and bilateral hilar adenopathy is similar to prior examination. A subcarinal lymph node is identified measuring approximately 13 mm short axis diameter along with left hilar lymph node measuring 12.4 mm short-axis diameter. Atherosclerotic changes to the thoracic aorta and coronary arteries are appreciated without cardiomegaly or significant pericardial effusion. No pneumothorax. Surrounding musculoskeletal structures demonstrate stable chronic osteopenia and degenerative changes without focal osseous lesion. Limited evaluation of the upper abdomen suggests stable 11 mm hyperdense lesion in the spleen (image 93) which is otherwise nonspecific and may represent complex cyst. Impression: 1. Right-sided neoplastic consolidation along with irregular circumferential pleural thickening and bilateral metastatic nodules as well as few mediastinal and hilar lymph nodes are essentially unchanged. 2. Underlying chronic interstitial disease and trace right basilar atelectasis suggested. 3. Right-sided chest tube in satisfactory position with only minimal residual right pleural fluid which has improved compared to prior examination. 4. Further chronic stable changes as described above. Signed by Hans Simeon MD 11/02/2016 07:12 A
[2016-11-02] MEDS: ADVAIR HFA 115/21MCG INHALER INH SCH (07:45)
[2016-11-02] MEDS ORDERED: D5W 1,000 ML IV SCH (08:15)
[2016-11-02] MEDS ORDERED: MAGNESIUM OXIDE 400 MG TAB (MAG-OX) PO SCH (09:00)
[2016-11-02] MEDS: OMEPRAZOLE 20 MG CAP PO SCH (09:36)
[2016-11-02] MEDS: HumaLOG INSULIN (NovoLOG) PER UNIT SC SCH ×2 (09:36→13:15)
[2016-11-02] MEDS: FERROUS SULFATE 325MG TAB PO SCH (09:36)
[2016-11-02] MEDS: ASPIRIN 81 MG ENTERIC TAB PO SCH (09:37)
[2016-11-02] MEDS: CYANOCOBALAMIN 500 MCG TAB PO SCH (09:37)
[2016-11-02] MEDS: MAG SULF 1GM/100ML (MAG RUN) 1 GM in APPROPRIATE DILUENT 1 EA IV SCH ×2 (09:38→11:50)
[2016-11-02] MEDS: NYSTATIN 100,000 UNITS/GM TOPICAL PWD 15 GM TOP SCH (09:38)
--- NOTE | 2016-11-02 15:26 | DS.PDOC ---
Discharge Summary General Date of Admission Oct 27, 2016 at 17:09 Date of Discharge 11/02/16 Attending Physician: HALIE NEVILLE MD Specialist/Consultants Involve: Ashwin Iraheta MD Discharge Summary PROCEDURES PERFORMED DURING STAY: None. ADMITTING/DISCHARGE DIAGNOSES: 1. ETEC/STEC Escherichia coli on GI panel 2. Diabetes mellitus 3. History of hypertension 4. GERD 5. History of depression 6.History of hypothyroidism 7. Obstructive sleep apnea 8. History of multiple TIAs 9. Stage IV lung cancer on chemotherapy 10. Pancytopenia 11. Hypokalemia/hypomagnesemia COMPLICATIONS/CHIEF COMPLAINT: HISTORY OF PRESENT ILLNESS/HOSPITAL COURSE: This is a 71-year-old female past with history of depression, hypothyroidism, obstructive sleep apnea on CPAP, stage IV lung cancer on chemotherapy who presents complaining of diarrhea. Patient was found to have ETEC/STEC Escherichia coli resulting in watery diarrhea, electrolyte imbalances, and dehydration. Patient was hydrated well, and her diarrhea has completely subsided. Antibiotics were not use this patient would have an increased risk of HUS. ID was consulted as well. Patient is now hemodynamically stable and ready to be discharged home with close follow-up with her primary care physician as well as Dr. Daniels. DISCHARGE MEDICATIONS: Please see below. ALLERGIES: Please see below. PHYSICAL EXAMINATION ON DISCHARGE: Vitals: (see below) General: No acute distress, laying comfortably in bed. HEENT: Moist mucous membranes. Neck: No JVD or lymphadenopathy Cardiac: RRR, No murmurs Pulm: Clear to auscultation b/l. No wheezing, rhonchi Abd: NT/ND + BS Ext: No edema or cyanosis LABORATORY DATA: Please see below. IMAGING: Vitals: (see below) General: No acute distress, laying comfortably in bed. HEENT: Moist mucous membranes. Neck: No JVD or lymphadenopathy Cardiac: RRR, No murmurs Pulm: Clear to auscultation b/l. No wheezing, rhonchi. right pleurx cath in tact. No leak. Abd: NT/ND + BS Ext: No edema or cyanosis PROGNOSIS: Guarded secondary to malignancy ACTIVITY: As tolerated. DIET: Regular diet DISCHARGE PLAN/DISPOSITION: Home with home services DISCHARGE INSTRUCTIONS: 1. F/u with PCP and Dr. Daniels in 1-2 weeks. Return to ED if symptoms worsen. DISCHARGE CONDITION: Stable. TIME SPENT ON DISCHARGE: Greater than 30 minutes. Vital Signs/I&Os Vital Signs Date Time Temp Pulse Resp B/P (MAP) Pulse Ox O2 Delivery O2 Flow Rate FiO2 11/02/16 08:00 Room Air 11/02/16 06:00 97.6 80 17 149/70 (96) 95 I&O- Last 24 Hours up to 6 AM 11/02/16 05:59 Intake Total 3910 ml Output Total 400 ml Balance 3510 ml Laboratory Data Labs 24H Laboratory Tests 2 11/01/16 16:32: Bedside Glucose (Misc Panel) 133H 11/01/16 19:58: Bedside Glucose (Misc Panel) 137H 11/02/16 05:34: White Blood Count 6.5, Red Blood Count 3.20L, Hemoglobin 9.6L, Hematocrit 28.9L , Mean Corpuscular Volume 90.2, Mean Corpuscular Hemoglobin 29.9, Mean Corpuscular Hemoglobin Concent 33.1, Red Cell Distribution Width 15.1H, Platelet Count 109L, Neutrophils (%) (Auto) 76.5H, Lymphocytes (%) (Auto) 14.0L , Monocytes (%) (Auto) 6.9H, Eosinophils (%) (Auto) 0.7, Basophils (%) (Auto) 0.3, Neutrophils # (Auto) 5.0, Lymphocytes # (Auto) 1.0L, Monocytes # (Auto) 0.5 , Eosinophils # (Auto) 0.0, Basophils # (Auto) 0.0, Large Unclassified Cells % 1.5, Large Unclassified Cells # 0.1, Anion Gap 9, Glomerular Filtration Rate > 60.0, Blood Urea Nitrogen 2L, Creatinine 0.70, Sodium Level 147H, Potassium Level 3.7, Chloride Level 113H, Carbon Dioxide Level 25, Calcium Level 7.3L, Aspartate Amino Transf (AST/SGOT) 9L, Alanine Aminotransferase (ALT/SGPT) 15, Alkaline Phosphatase 85, Total Bilirubin 0.1L, Total Protein 5.4L, Albumin 2.0L , Magnesium Level 1.4L, C-Reactive Protein, Quantitative 3.55H, Albumin/ Globulin Ratio 0.59L 11/02/16 11:49: Bedside Glucose (Misc Panel) 112H CBC/BMP Laboratory Tests 11/02/16 05:34 Red Blood Count 3.20 L, Mean Corpuscular Volume 90.2, Mean Corpuscular Hemoglobin 29.9, Mean Corpuscular Hemoglobin Concent 33.1, Red Cell Distribution Width 15.1 H, Neutrophils (%) (Auto) 76.5 H, Lymphocytes (%) (Auto ) 14.0 L, Monocytes (%) (Auto) 6.9 H, Eosinophils (%) (Auto) 0.7, Basophils (%) (Auto) 0.3, Neutrophils # (Auto) 5.0, Lymphocytes # (Auto) 1.0 L, Monocytes # ( Auto) 0.5, Eosinophils # (Auto) 0.0, Basophils # (Auto) 0.0, Calcium Level 7.3 L , Aspartate Amino Transf (AST/SGOT) 9 L, Alanine Aminotransferase (ALT/SGPT) 15 , Alkaline Phosphatase 85, Total Bilirubin 0.1 L, Total Protein 5.4 L, Albumin 2.0 L FSBS Laboratory Tests Test 11/01/16 16:32 11/01/16 19:58 11/02/16 11:49 Range/Units Bedside Glucose (Misc Panel) 133 137 112 83-110 MG/DL Microbiology Microbiology 10/27/16 Stool Occult Blood (CLIFF) - Final, Complete 10/27/16 Gastrointestinal Tract Panel (PCR) - Final, Complete Enterotoxigenic E.coli Lt/St Shiga-Like E.coli Not O157 Discharge Medications Scheduled (Calcium 600 + D 600-200 mg-Unit) 1 Tab Tab, 1 TAB PO DAILY, (Reported) Amlodipine Besylate (Amlodipine Besylate) 2.5 Mg Tab, 2.5 MG PO DAILY, (Reported ) Aspirin (Aspir-Low) 81 Mg Tab, 81 MG PO DAILY, (Reported) Atorvastatin Calcium (Atorvastatin Calcium) 40 Mg Tab, 40 MG PO QHS, (Reported) Cyanocobalamin (Vitamin B12) 1,000 Mcg Tab, 1,000 MCG PO DAILY, (Reported) Ferrous Sulfate (Ferrous Sulfate) 325 Mg Tab, 325 MG PO BID, (Reported) Fish Oil (Fish Oil) 1,000 Mg Cap, 1,000 MG PO DAILY, (Reported) Lactobacillus Rhamnosus (Culturelle) 1 Cap Cap, 1 CAP PO DAILY, (Reported) Levocetirizine Hydrochloride (Levocetirizine Dihydrochl) 5 Mg Tab, 5 MG PO QHS, (Reported) Levothyroxine Sodium (Levoxyl) 137 Mcg Tab, 137 MCG PO DAILY, (Reported) Magnesium Chloride (Slow-Mag 71.5-119 mg) 1 Tab Tab, 2 TAB PO DAILY, (Reported) Omeprazole (Omeprazole) 40 Mg Cap, 40 MG PO BID, (Reported) Salmeterol/Fluticasone (Advair Diskus 250-50 Mcg/Dose) 14 Puff/Inhaler Aerp, 1 PUFF INH BID, (Reported) Sitagliptin Phosphate (Januvia) 100 Mg Tab, 100 MG PO DAILY, (Reported) Venlafaxine HCl (Venlafaxine HCl ER) 75 Mg Cap, 75 MG PO QHS, (Reported) Vitamin D (Vitamin D) 2,000 Unit Cap, 2,000 UNIT PO DAILY, (Reported) Scheduled PRN (Flonase Allergy Relief) 50 Mcg/Act Spr, 1 SPRAY NA DAILY PRN for NASAL CONGESTION, (Reported) Albuterol Sulfate (Ventolin Hfa) 200 Puff/8 Gm Aers, 2 PUFF INH Q4H PRN for SHORTNESS OF BREATH, (Reported) Albuterol Sulfate (Albuterol Sulfate) 2.5 Mg/3 Ml Nebu, 2.5 MG INH Q4H PRN for SHORTNESS OF BREATH, (Reported) Nitroglycerin (Nitrostat) 0.4 Mg Subl, 0.4 MG SL Q5MP PRN for CHEST PAIN, ( Reported) Ondansetron HCl (Ondansetron HCl) 8 Mg Tab, 8 MG PO Q6H PRN for NAUSEA, ( Reported) Prochlorperazine Maleate (Prochlorperazine Maleate) 10 Mg Tab, 10 MG PO Q8H PRN for NAUSEA, (Reported) Allergies Coded Allergies: Procaine (Verified Allergy, Severe, HEART STOPS, 04/23/16) Erythromycin (Verified Allergy, Unknown, 01/08/14) Penicillins (Unverified Allergy, Unknown, HIVES, 06/09/12) Penicillins Cross Reactors (Unverified Allergy, Unknown, HIVES, 06/09/12) Sulfa Drugs (Unverified Allergy, Unknown, BLISTERS, 06/09/12) Sulfa Drugs Cross Reactors (Unverified Allergy, Unknown, BLISTERS, 06/09/12) Tetracycline (Verified Allergy, Unknown, HIVES, 06/09/12) Nitrofurantoin (Unverified Adverse Reaction, Unknown, COMATOSE, NAUSEA AND DIARRHEA, 09/02/16) HALIE NEVILLE MD Nov 02, 2016 15:26
[2016-11-03] MEDS ORDERED: ALEV220T26 PO (18:18)
[2016-11-03] MEDS ORDERED: AMLO5TAB2 PO (18:18)
== END 2016-11-02 14:28 | disposition home health service (06) | DRG 372 ==
LOC: M ED 10:57 → M ED INP 17:09 → M MSPAV 19:57
PROVIDERS: ADMIT Hospitalist; ATTEND Internal Medicine
DX: A04.1 Enterotoxigenic Escherichia coli infection (principal); C34.90 Malignant neoplasm of unspecified part of unspecified bronchus or lung; D61.818 Other pancytopenia; G47.33 Obstructive sleep apnea (adult) (pediatric); E87.6 Hypokalemia; E83.42 Hypomagnesemia; I10 Essential (primary) hypertension; K21.9 Gastro-esophageal reflux disease without esophagitis; E03.9 Hypothyroidism, unspecified; Z86.73 Personal history of transient ischemic attack (TIA), and cerebral infarction without residual deficits; E11.9 Type 2 diabetes mellitus without complications; F32.9 Major depressive disorder, single episode, unspecified; E86.0 Dehydration; Z79.899 Other long term (current) drug therapy; Z79.82 Long term (current) use of aspirin; Z88.0 Allergy status to penicillin; Z88.2 Allergy status to sulfonamides; Z88.8 Allergy status to other drugs, medicaments and biological substances; F17.210 Nicotine dependence, cigarettes, uncomplicated; D64.81 Anemia due to antineoplastic chemotherapy; E78.5 Hyperlipidemia, unspecified

== ENCOUNTER 2016-11-03 15:28 | Observation (INO) | payer MEDICARE, MEDICAID ==
[~2016-11-03] VITALS: Ht 160 cm; Wt 87.1 kg
[~2016-11-03 15:28] MED LIST changes: +ONDA8TAB7 PO; +PROC10TA PO
[2016-11-03 16:42] LABS: BASO % 0.2 % (0.0-1.0); EOS # 0.1 K/mm3 (0.0-0.50); EOS % 0.7 % (0.0-3.0); LARGE UNSTAINED CELL # 0.1 K/mm3 (0.0-0.4); LYMPH # 1.3 K/mm3 (1.5-4.5); LYMPH % 8.3 % (24.0-44.0); MEAN CORPUSCULAR HEMOGLOBIN 29.7 pg (27.0-33.0); MEAN CORPUSCULAR HGB CONC 33.7 g/dl (32.0-36.5); MEAN CORPUSCULAR VOLUME 88.3 fl (80.0-96.0); MONO # 0.6 K/mm3 (0.0-0.8); MONO % 4.3 % (0.0-5.0); NEUTROPHILS # 11.5 K/mm3 (1.8-7.7); NEUTROPHILS % 85.5 % (36.0-66.0); RED CELL DISTRIBUTION WIDTH 15.1 % (11.5-14.5); WHITE BLOOD COUNT 13.4 K/mm3 (4.0-10.0)
[2016-11-03 16:43] LABS: PLATELET COUNT, AUTOMATED 89 k/mm3 (150-450)
[2016-11-03 16:59] LABS: ANION GAP 13 MEQ/L (8-16); BLOOD UREA NITROGEN 5 MG/DL (7-18); CALCIUM LEVEL 8.2 MG/DL (8.8-10.2); CARBON DIOXIDE LEVEL 24 MEQ/L (21-32); CHLORIDE LEVEL 109 MEQ/L (98-107); CREATININE FOR GFR 0.77 MG/DL (0.55-1.02); GLOMERULAR FILTRATION RATE > 60.0 (>39); GLUCOSE, FASTING 105 MG/DL (83-110); SODIUM LEVEL 146 MEQ/L (136-145)
[2016-11-03] MEDS ORDERED: KCL 40MEQ in NS 1000ML 1,000 ML IV SCH (17:30)
[2016-11-03] MEDS ORDERED: POTASSIUM CHLORIDE 10 MEQ SR TABLET PO ONE ×2 (17:30→23:45)
[2016-11-03] MEDS ORDERED: AMLO5TAB2 PO (18:18)
[2016-11-03] MEDS ORDERED: ALEV220T26 PO (18:18)
[2016-11-03] MEDS ORDERED: DEXTROSE 50% 50 ML SYRINGE IV PRN (20:15)
[2016-11-03] MEDS ORDERED: ONDANSETRON 4MG/2ML VIAL (J2405) IV PRN (20:15)
[2016-11-03] MEDS ORDERED: GLUCOSE 4 GM CHEW TABLET PO PRN (20:15)
[2016-11-03] MEDS ORDERED: PROCHLORPERAZINE 5 MG TAB (S0183) PO PRN (20:15)
[2016-11-03] MEDS ORDERED: GLUCAGON FOR INJ 1 MG VIAL (J1610) SC PRN (20:15)
[2016-11-03] MEDS ORDERED: FLUTICASONE PROP 0.05% NASAL SPRAY 16 GM (FLONASE) PRN (20:15)
[2016-11-03] MEDS ORDERED: ALBUTEROL 90 MCG/ACT 8GM HFA INHALER INH PRN (20:15)
[2016-11-03] MEDS: KCL 40MEQ in NS 1000ML 1,000 ML IV SCH (20:25)
[2016-11-03] MEDS: HumaLOG INSULIN (NovoLOG) PER UNIT SC SCH (21:00)
[2016-11-03] MEDS: ADVAIR HFA 115/21MCG INHALER INH SCH (21:00)
[2016-11-03 21:04] VITALS: BP 150/71
[2016-11-03 21:32] LABS: ANION GAP 10 MEQ/L (8-16); BLOOD UREA NITROGEN 5 MG/DL (7-18); CARBON DIOXIDE LEVEL 27 MEQ/L (21-32); CHLORIDE LEVEL 110 MEQ/L (98-107); GLOMERULAR FILTRATION RATE > 60.0 (>39); GLUCOSE, FASTING 88 MG/DL (83-110); MAGNESIUM LEVEL 1.5 MG/DL (1.8-2.4); POTASSIUM SERUM 3.5 MEQ/L (3.5-5.1); SODIUM LEVEL 147 MEQ/L (136-145)
[2016-11-03] MEDS: HEPARIN SOD (PORCINE) 5000 UNITS/ML VIAL SC SCH ×2 (22:00→22:22)
[2016-11-03] MEDS: OMEPRAZOLE 20 MG CAP PO SCH (22:22)
[2016-11-03] MEDS: ATORVASTATIN 20 MG TAB PO SCH (22:22)
[2016-11-03] MEDS: LACTOBACILLUS ACIDOPHILUS CAP (BACID) PO SCH (22:23)
[2016-11-03] MEDS: VENLAFAXINE **XR** 75MG CAPSULE PO SCH (22:23)
[2016-11-03] MEDS: FERROUS SULFATE 325MG TAB PO SCH (22:23)
[2016-11-03] MEDS ORDERED: MAG SULF 1GM/100ML (MAG RUN) 1 GM in APPROPRIATE DILUENT 1 EA IV SCH (23:45)
[2016-11-03] MEDS ORDERED: MAG SULF 1GM/100ML (MAG RUN) 1 GM in APPROPRIATE DILUENT 1 EA IV ONE (23:45)
[2016-11-04] MEDS: LEVOTHYROXINE 137MCG TABLET (0.137MG) PO SCH (05:27)
[2016-11-04] MEDS: HEPARIN SOD (PORCINE) 5000 UNITS/ML VIAL SC SCH ×3 (05:29→22:00)
[2016-11-04] MEDS: KCL 40MEQ in NS 1000ML 1,000 ML IV SCH (05:30)
--- NOTE | 2016-11-04 05:58 | HPE ---
DATE OF ADMISSION: 11/03/2016 PRIMARY CARE PROVIDER: Linda Hartmann DO ONCOLOGIST: Dr. Padmini Aguilera CHIEF COMPLAINT: Generalized weakness, diarrhea. HISTORY OF PRESENT ILLNESS: This is a 71-year-old female patient with underlying medical history of type 2 diabetes, hypertension, gastroesophageal reflux disease (GERD), depression, hypothyroidism, obstructive sleep apnea on continuous positive airway pressure (CPAP), irritable bowel syndrome, history of multiple transient ischemic attacks (TIAs), dyslipidemia, stage IV adenocarcinoma of the lung undergoing chemo and immunotherapy and recently discharged from the hospital yesterday, diagnosed with enterotoxigenic Escherichia (E) coli. Patient returned to the hospital, reported that her diarrhea is coming back. It started earlier today with about seven episodes. After patient returned to the emergency department (ED), patient reported that diarrhea has resolved. Found to be hypokalemia. Subsequently, requested for admission for overnight observation given patient's immunocompromise. Case discussed with Dr. Padmini Aguilera, patient's oncologist. Possibly diarrhea secondary to E coli infection versus chemo regimen versus patient's underlying irritable bowel syndrome given patient is on Imodium at home. Prior to this, the Imodium has been on hold due to enterotoxigenic E coli infection. We will admit the patient and follow gastrointestinal (GI) studies, GI panels and stool studies for further determination. Patient currently denies any chest pain, pressure or discomfort. Tolerating oral. No nausea or vomiting. ALLERGIES: ERYTHROMYCIN, NITROFURANTOIN, PENICILLIN, PENICILLIN CROSS REACTOR, PROCAINE, SULFA DRUGS, SULFA DRUGS CROSS REACTORS, TETRACYCLINE. PAST MEDICAL HISTORY: 1. Diabetes, type 2. 2. Dyslipidemia. 3. Hypertension. 4. Depression. 5. Hypothyroidism. 6. Sleep apnea on CPAP. 7. Irritable bowel syndrome. 8. History of multiple TIAs. 9. Stage IV lung adenocarcinoma. 10. Anxiety. 11. Recent diagnosis with enterotoxigenic E coli. PAST SURGICAL HISTORY: 1. Cholecystectomy. 2. Right PleurX catheter placement for drainage every 3 days for malignant pleural effusion. 3. Back surgery. 4. Tonsillectomy. 5. with a walker. 6. Hysterectomy. 7. Bilateral tubal ligation (BTL). 8. Bilateral cataract. FAMILY HISTORY: Diabetes and hypertension. SOCIAL HISTORY: Patient currently lives at home. Smokes approximately 4-5 cigarettes daily, but used to smoke 1 pack per day starting at age 31. Denies any alcohol use. REVIEW OF SYSTEMS: Reported diarrhea, generalized weakness. All other review of systems are negative. HOME MEDICATION: - Ventolin inhalers every 4 hours as needed - Norvasc 5 mg by mouth daily - aspirin 81 mg by mouth daily - Lipitor 40 mg by mouth nightly - calcium with vitamin D 1000 mg by mouth daily - vitamin B12 1000 mcg by mouth daily - ferrous sulfate 325 mg by mouth twice a day - fish oil 1000 mg by mouth daily - Flonase nasal spray daily as needed - Bacid one capsule by mouth daily - levocetirizine 5 mg by mouth daily - levothyroxine 137 mcg by mouth daily - magnesium chloride two tablets by mouth daily - Aleve 440 mg by mouth every 8 hours as needed - nitroglycerin sublingual 0.4 mg by mouth as needed - omeprazole 40 mg by mouth twice a day - Zofran 8 mg by mouth every 6 hours as needed - [id number] mg by mouth every 8 hours as needed - Advair Diskus 250/50 mcg inhalation twice a day - Januvia 100 mg by mouth daily - venlafaxine 75 mg by mouth nightly - vitamin D 2000 units by mouth daily PHYSICAL EXAMINATION: VITAL SIGNS: Temperature 97.5, pulse 81, respirations 17, blood pressure 150/71, pulse oximetry 93% on room air. GENERAL: Patient obese, alert, oriented times three, in no acute distress. HEENT: Normocephalic, atraumatic. PULMONARY: Bilateral clear to auscultation. CARDIAC: Regular rate and rhythm. Normal S1, S2. ABDOMEN: Soft. Nontender. Positive bowel sounds. EXTREMITIES: No edema bilateral lower extremities. LABORATORY: WBC 13.4, hemoglobin and hematocrit 10.3/30.5, platelets 89. Chemistry: [id number], potassium 3.5, chloride 110, bicarbonate 27, BUN 5, creatinine 0.7, magnesium 1.5. ASSESSMENT AND PLAN: This is a 71-year-old female patient with underlying medical history of type 2 diabetes, hypertension, gastroesophageal reflux disease, depression, hypothyroidism, sleep apnea on CPAP, irritable bowel syndrome, history of multiple transient ischemic attacks, dyslipidemia, stage IV adenocarcinoma of the lung, anxiety, with malignant pleural effusion, returned to the emergency room with recurrent diarrhea. PROBLEMS: 1. Diarrhea. Differential diagnoses include underlying irritable bowel syndrome, recently diagnosed with enterotoxigenic E coli versus chemo regimen. Case discussed with Dr. Padmini Aguilera. Will determine whether the patient has osmotic diarrhea versus secretory diarrhea with stool studies, GI panel repeat. Intravenous (IV) fluids for supportive care. No antibiotics indicated as per Dr. Iraheta during previous admissions. Even as determined secondary to irritable bowel syndrome, will be okay to give Imodium. In the meantime, followup electrolytes, supplement as needed. 2. Hypokalemia. Supplement with electrolytes. Followup magnesium and potassium. 3. Diabetes, type 2. Holding oral medication. Insulin per protocol. 4. Leukocytosis. Follow cultures and C-reactive protein. 5. Hypertension. Continue current medication. Adjust as needed. Monitor blood pressure. 6. GERD. Continue proton pump inhibitor (PPI). 7. Hypothyroidism. Continue Synthroid. Followup thyroid function tests. 8. Depression. Continue current medication. 9. Sleep apnea. Encourage CPAP, BRENDA protocol. 10. Irritable bowel syndrome. Supportive care. Will monitor and management as above. 11. History of TIA. Continue to monitor. Continue aspirin and statin. 12. Chronic obstructive pulmonary disease (COPD). Continue current medication. 13. Stage IV adenocarcinoma of the lung. Patient to followup with Dr. Padmini Aguilera. The case discussed with Dr. Aguilera. 14. Deep venous thrombosis (DVT) prophylaxis. Heparin subcu. DISPOSITION PLANNING: Pending clinical improvement.
[2016-11-04 06:00] VITALS: BP 152/82
[2016-11-04 06:39] LABS: MEAN CORPUSCULAR HEMOGLOBIN 29.7 pg (27.0-33.0); MEAN CORPUSCULAR HGB CONC 32.9 g/dl (32.0-36.5); MEAN CORPUSCULAR VOLUME 90.2 fl (80.0-96.0); RED CELL DISTRIBUTION WIDTH 15.2 % (11.5-14.5)
[2016-11-04 07:04] LABS: ANION GAP 8 MEQ/L (8-16); BLOOD UREA NITROGEN 5 MG/DL (7-18); CALCIUM LEVEL 8.2 MG/DL (8.8-10.2); CARBON DIOXIDE LEVEL 26 MEQ/L (21-32); CHLORIDE LEVEL 112 MEQ/L (98-107); CREATININE FOR GFR 0.76 MG/DL (0.55-1.02); GLOMERULAR FILTRATION RATE > 60.0 (>39); GLUCOSE, FASTING 99 MG/DL (83-110); MAGNESIUM LEVEL 1.7 MG/DL (1.8-2.4); POTASSIUM SERUM 3.9 MEQ/L (3.5-5.1); SODIUM LEVEL 146 MEQ/L (136-145); T UPTAKE 32 % (30-39); THYROXINE (T4) 11.5 UG/DL (4.5-12.0)
[2016-11-04] MEDS: HumaLOG INSULIN (NovoLOG) PER UNIT SC SCH ×4 (08:01→20:16)
[2016-11-04] MEDS: ADVAIR HFA 115/21MCG INHALER INH SCH ×2 (08:12→21:51)
[2016-11-04] MEDS: VITAMIN D 1,000 INTERNATIONAL UNITS TABLET PO SCH (08:26)
[2016-11-04] MEDS: LACTOBACILLUS ACIDOPHILUS CAP (BACID) PO SCH ×2 (08:26→20:16)
[2016-11-04] MEDS: ASPIRIN 81 MG ENTERIC TAB PO SCH (08:26)
[2016-11-04] MEDS: FERROUS SULFATE 325MG TAB PO SCH ×2 (08:26→20:16)
[2016-11-04] MEDS: CYANOCOBALAMIN 500 MCG TAB PO SCH (08:26)
[2016-11-04] MEDS: OMEGA-3 1050MG CAPSULE PO SCH (08:26)
[2016-11-04] MEDS: OMEPRAZOLE 20 MG CAP PO SCH ×2 (08:26→20:16)
[2016-11-04] MEDS: amLODIPine 5 MG TAB PO SCH (08:27)
[2016-11-04 12:00] VITALS: BP 142/70
[2016-11-04 14:00] VITALS: BP 122/68
[2016-11-04] MEDS ORDERED: MAG SULF 1GM/100ML (MAG RUN) 1 GM in APPROPRIATE DILUENT 1 EA IV ONE (15:00)
--- NOTE | 2016-11-04 15:32 | IPN ---
DATE: 11/04/2016 Ms. Shook has had a good deal of loose stools overnight and has had some incontinence. She believes that this is likely related to no longer using loperamide which she has been using for some time. She has no abdominal pain. She has been tolerating a diet. Temperature 98.4, pulse 84, respiratory rate 26, blood pressure 126/68, 94% on room air. Six bowel movements thus far today. Body mass index 32.8. She is awake, appropriately interactive, pleasantly conversant. Breathing is symmetrical, rested, some coarse upper airway sounds are noted. Heart regular rate and rhythm. Abdomen soft, doughy, nontender, active bowel sounds. White cell count 11, hemoglobin 9.8, platelets of 95. Sodium is 146, creatinine 0.76, magnesium 1.7. My assessment is as follows: This is a 71-year-old with recurrent diarrhea, etiology yet unclear. Plan is as follows: 1. Gastrointestinal (GI). Awaiting stool studies to decide whether or not we can restart loperamide. Currently not on antibiotics. Patient has hypomagnesemia which will be repleted. 2. The patient has hypokalemia, has been repleted. 3. The patient has type 2 diabetes, on insulin. 4. The patient has hypertension, which is well controlled in the current setting. 5. The patient has hypothyroidism. 6. The patient has sleep apnea. Her continuous positive airway pressure (CPAP) device is not functional so we are using obstructive sleep apnea (BRENDA) protocol. 7. The patient has a history of irritable bowel. 8. The patient has stage IV adenocarcinoma of the lung. I did discuss this case with Dr. Daniels yesterday.
[2016-11-04] MEDS: LOPERAMIDE 2 MG CAP PO PRN ×2 (16:45→20:16)
[2016-11-04] MEDS: ATORVASTATIN 20 MG TAB PO SCH (20:16)
[2016-11-04 21:30] VITALS: BP_SYST 143; BP_DIAS 70; BP_DIAS 76
[2016-11-04 21:32] VITALS: BP 139/89
[2016-11-04] MEDS: VENLAFAXINE **XR** 75MG CAPSULE PO SCH (21:48)
[2016-11-04 22:00] VITALS: BP 143/70
--- NOTE | 2016-11-04 23:21 | ECGEPIP ---
Stationary ECG Study [facility] Test Date: 2016-11-04 Pat Name: MICHAEL HERNANDEZ Department: Room: [place] [address] Gender: F [employer] Manager: HECTOR : [id number] Requested By: EILEEN MEEKS Order Number: [id number] Reading MD: Hernandez Urias Measurements Intervals [place] Rate: 84 P: 57 LA: 195 QRS: -51 QRSD: 146 T: 34 QT: 382 QTc: 452 Interpretive Statements SINUS RHYTHM RIGHT BUNDLE BRANCH BLOCK LEFT ANTERIOR FASCICULAR BLOCK Decreased heart rate compared with 10/27/2016. Electronically Signed On 11-04-2016 23:21:07 EDT by Hernandez Urias
[2016-11-05 06:00] VITALS: BP 159/73
[2016-11-05 06:00] LABS: MEAN CORPUSCULAR HEMOGLOBIN 29.8 pg (27.0-33.0); MEAN CORPUSCULAR HGB CONC 32.9 g/dl (32.0-36.5); MEAN CORPUSCULAR VOLUME 90.4 fl (80.0-96.0); WHITE BLOOD COUNT 11.3 K/mm3 (4.0-10.0)
[2016-11-05] MEDS: LEVOTHYROXINE 137MCG TABLET (0.137MG) PO SCH (06:00)
[2016-11-05] MEDS: HEPARIN SOD (PORCINE) 5000 UNITS/ML VIAL SC SCH (06:00)
[2016-11-05 06:27] LABS: ANION GAP 10 MEQ/L (8-16); BLOOD UREA NITROGEN 7 MG/DL (7-18); CALCIUM LEVEL 8.2 MG/DL (8.8-10.2); CARBON DIOXIDE LEVEL 27 MEQ/L (21-32); CHLORIDE LEVEL 107 MEQ/L (98-107); CREATININE FOR GFR 0.73 MG/DL (0.55-1.02); GLOMERULAR FILTRATION RATE > 60.0 (>39); GLUCOSE, FASTING 101 MG/DL (83-110); MAGNESIUM LEVEL 1.6 MG/DL (1.8-2.4); POTASSIUM SERUM 3.9 MEQ/L (3.5-5.1); SODIUM LEVEL 144 MEQ/L (136-145)
[2016-11-05] MEDS: HumaLOG INSULIN (NovoLOG) PER UNIT SC SCH ×2 (07:30→11:34)
[2016-11-05 08:00] VITALS: BP 159/73
[2016-11-05] MEDS: LACTOBACILLUS ACIDOPHILUS CAP (BACID) PO SCH (08:00)
[2016-11-05] MEDS: amLODIPine 5 MG TAB PO SCH (08:00)
[2016-11-05] MEDS: FERROUS SULFATE 325MG TAB PO SCH (08:00)
[2016-11-05] MEDS: VITAMIN D 1,000 INTERNATIONAL UNITS TABLET PO SCH (08:00)
[2016-11-05] MEDS: OMEPRAZOLE 20 MG CAP PO SCH (08:00)
[2016-11-05] MEDS: OMEGA-3 1050MG CAPSULE PO SCH (08:00)
[2016-11-05] MEDS: ASPIRIN 81 MG ENTERIC TAB PO SCH (08:01)
[2016-11-05] MEDS: LOPERAMIDE 2 MG CAP PO PRN (08:01)
[2016-11-05] MEDS: CYANOCOBALAMIN 500 MCG TAB PO SCH (08:01)
[2016-11-05] MEDS: ADVAIR HFA 115/21MCG INHALER INH SCH (08:58)
[2016-11-05] MEDS ORDERED: MAG SULF 1GM/100ML (MAG RUN) 1 GM in APPROPRIATE DILUENT 1 EA IV ONE (11:00)
[2016-11-07 08:08] LABS: CHLORIDE FECAL 122 mmol/L (.); OSMOLARITY STOOL 306 mOsmol/kg (Not Estab.); POTASSIUM FECAL 41 mmol/L (.); SODIUM FECAL 138 mmol/L (.)
--- NOTE | 2016-11-09 16:17 | DSES ---
DATE OF ADMISSION: 11/03/2016 DATE OF DISCHARGE: 11/05/2016 Ms. Shook is feeling well today. She has no complaints of pain, chest pain, shortness of breath. Temperature is 97.4, pulse 83, respiratory rate 25, blood pressure 159/73, 96% on room air. Positive fluid balance of 2280, six bowel movements yesterday. She is awake, appropriately interactive, pleasantly conversant. A number of stools have decreased after restarting Imodium overnight. My assessment is as follows: This is a 71-year-old with current diarrhea. The plan is as follows: 1. Gastrointestinal (GI). The patient has what is likely her chronic diarrhea and can be discharged safely home today on Imodium. 2. The patient has type 2 diabetes, on insulin. 3. The patient has resolved hypokalemia. DISCHARGE INSTRUCTIONS: Include the following: Followup with Dr. Dodge on 11/10/2016 at 9 a.m., Dr. Daniels as scheduled. Activity and diet as tolerated. Continue albuterol two puffs every 4 hours. Norvasc 5 mg by mouth daily. Aspirin 81 mg by mouth daily, atorvastatin 40 mg by mouth daily at bedtime. Calcium with vitamin D supplement. B12 1000 mcg by mouth daily. Ferrous sulfate 325 mg by mouth twice daily. Fish oil 1000 mg by mouth daily. Flonase nasally as needed for congestion. Lactobacillus one capsule by mouth daily. Zyrtec 5 mg by mouth daily. Synthroid 137 mcg by mouth daily. Magnesium supplement daily. Naprosyn every 8 hours as needed for pain. Sublingual nitroglycerin. Omeprazole 40 mg by mouth twice daily. Zofran 8 mg every 6 hours as needed for pain. Chlorpromazine 10 mg every 8 hours as needed for nausea. Advair inhaled twice daily. Januvia 100 mg by mouth daily. Venlafaxine 75 mg by mouth daily at bedtime. Vitamin D supplement.
== END 2016-11-05 12:34 | disposition home or self-care (01) ==
LOC: M ED 15:28 → M ED INP 20:12 → M MSPAV 21:04
PROVIDERS: ADMIT Hospitalist; ATTEND Internal Medicine
DX: R19.7 Diarrhea, unspecified (principal); B96.20 Unspecified Escherichia coli [E. coli] as the cause of diseases classified elsewhere; E87.6 Hypokalemia; E11.9 Type 2 diabetes mellitus without complications; D72.829 Elevated white blood cell count, unspecified; I10 Essential (primary) hypertension; K21.9 Gastro-esophageal reflux disease without esophagitis; E03.9 Hypothyroidism, unspecified; G47.30 Sleep apnea, unspecified; Z86.73 Personal history of transient ischemic attack (TIA), and cerebral infarction without residual deficits; F32.9 Major depressive disorder, single episode, unspecified; F17.210 Nicotine dependence, cigarettes, uncomplicated; Z79.51 Long term (current) use of inhaled steroids; J44.9 Chronic obstructive pulmonary disease, unspecified; C34.90 Malignant neoplasm of unspecified part of unspecified bronchus or lung; E78.4 Other hyperlipidemia; Z79.4 Long term (current) use of insulin; Z79.82 Long term (current) use of aspirin; Z88.0 Allergy status to penicillin; Z88.2 Allergy status to sulfonamides; Z79.899 Other long term (current) drug therapy
CPT/HCPCS: 36415; 80048; 82438; 83630; 83735; 84302; 84436; 84443; 84479; 84999; 85025; 85027; 86140; 87040; 87507; 93005; 94640; 96360; 96361; 97161; 99285; G0378; J3475

== ENCOUNTER → 2016-11-12 | Outpatient (REF) | payer MEDICARE, MEDICAID ==
[~2016-11-12] MED LIST changes: +ALEV220T26 PO; +AVEL1TAB3 PO
[2016-11-12 14:09] LABS: FREE T4 1.29 NG/DL (0.76-1.46)
== END ==
LOC: M LAB REF 10:42
PROVIDERS: ATTEND Family Medicine
DX: C34.90 Malignant neoplasm of unspecified part of unspecified bronchus or lung (principal); E11.42 Type 2 diabetes mellitus with diabetic polyneuropathy; E03.9 Hypothyroidism, unspecified

== ENCOUNTER → 2016-11-12 | Outpatient (REF) | payer MEDICARE, MEDICAID | LOC: M LAB REF 10:40 | PROVIDERS: ATTEND Internal Medicine Medical Oncology | DX: C34.90 Malignant neoplasm of unspecified part of unspecified bronchus or lung (principal) ==

== ENCOUNTER → 2016-11-26 | Outpatient (CLI) | payer MEDICARE, MEDICAID ==
--- NOTE | 2016-11-26 10:46 | REP ---
PA and lateral chest: Comparisons are the PA chest dated 10/27/[address] of 10/31/2016. There is a right upper lobe mass, unchanged. The right costophrenic angle is mildly effaced suggestive of a small right pleural effusion. There is a right thoracotomy tube, unchanged from the prior studies with the tip in the right apex. Left lung is clear. Cardiac size normal. The cinthya, mediastinum, and bony thorax are unchanged. Impression: Right upper lobe mass. Right thoracotomy tube. Small right pleural effusion. Signed by Floyd Bowen MD 11/26/2016 10:38 A
== END ==
LOC: M SMT 08:52
PROVIDERS: ATTEND Thoracic Surgery (Cardiothoracic Vascular Surgery)
DX: J90 Pleural effusion, not elsewhere classified (principal)

== ENCOUNTER 2016-12-05 12:48 | Emergency (ER) | payer MEDICARE, MEDICAID ==
[~2016-12-05] VITALS: Ht 160 cm; Wt 82.7 kg
[~2016-12-05 12:48] MED LIST changes: -AVEL1TAB3 PO
[2016-12-05] MEDS ORDERED: MOXIFLOXACIN 400 MG TAB PO ONE (14:15)
[2016-12-05] MEDS ORDERED: AVEL1TAB3 PO (14:22)
[2016-12-05 14:39] VITALS: BP 142/72
--- NOTE | 2016-12-05 14:39 | REP ---
CHEST, TWO VIEWS: HISTORY: Cough. COMPARISON: 11/26/2016. An ill-defined parenchymal mass with postobstructive parenchymal density is present in the right upper lobe unchanged compared to the previous study. Patchy density is present in the right lower lobe consistent with atelectasis or infiltrate. There is blunting of the right costophrenic angle due to a pleural effusion. An increase in interstitial markings is present in the left lung consistent with chronic interstitial change. The heart is normal in size. The pulmonary vasculature is normal in appearance. The bony structure is intact. A chest tube is present in the right hemithorax. There is no pneumothorax. IMPRESSION: 1. Ill-defined right upper lobe parenchymal mass with associated postobstructive parenchymal density unchanged compared to the previous study. 2. Right lower lobe atelectasis or infiltrate. 3. Small right pleural effusion. Signed by Santi Patel MD 12/05/2016 03:09 P
--- NOTE | 2016-12-06 10:21 | ED PDOC ---
Post-Departure Follow-Up radiology report faxed to Renetta Quezada MD Dec 06, 2016 10:21
== END 2016-12-05 14:41 | disposition home or self-care (01) ==
LOC: M ED 12:48
DX: R05 Cough (principal); T85.698A Other mechanical complication of other specified internal prosthetic devices, implants and grafts, initial encounter; C34.90 Malignant neoplasm of unspecified part of unspecified bronchus or lung; Y92.9 Unspecified place or not applicable; Y93.9 Activity, unspecified; I25.10 Atherosclerotic heart disease of native coronary artery without angina pectoris; I25.2 Old myocardial infarction; E11.9 Type 2 diabetes mellitus without complications; Z86.73 Personal history of transient ischemic attack (TIA), and cerebral infarction without residual deficits; E03.9 Hypothyroidism, unspecified; F41.9 Anxiety disorder, unspecified; F32.9 Major depressive disorder, single episode, unspecified; F17.200 Nicotine dependence, unspecified, uncomplicated; Z79.82 Long term (current) use of aspirin; Z79.899 Other long term (current) drug therapy; Z88.8 Allergy status to other drugs, medicaments and biological substances; Z88.1 Allergy status to other antibiotic agents; Z88.0 Allergy status to penicillin; Z88.2 Allergy status to sulfonamides

== ENCOUNTER → 2016-12-14 | Outpatient (CLI) | payer MEDICARE, MEDICAID ==
[~2016-12-14] MED LIST changes: +AVEL1TAB3 PO
--- NOTE | 2016-12-14 10:48 | REP ---
CHEST X-RAY: Two view. HISTORY: Malignant pleural effusion. COMPARISON CHEST X-RAY: December 05, 2016. FINDINGS: A right PleurX type catheter is seen again noted in place. There is no significant pleural effusion. Some fissural thickening is visible in the major fissure on the lateral radiograph and there is some right apical pleuroparenchymal density which is unchanged from December 05, 2016. The left lung remains clear. Heart is not enlarged. Lateral radiograph demonstrates anterior wedge compression deformity at one of the vertebrae at the thoracolumbar junction. This is unchanged as well. IMPRESSION: Pleuroparenchymal changes and pleural drainage catheter noted on the right radiographically stable from December 05, 2016. Signed by Adrian Salcedo MD 12/14/2016 01:18 P
== END ==
LOC: M SMT 09:00
PROVIDERS: ATTEND Thoracic Surgery (Cardiothoracic Vascular Surgery)
DX: C34.90 Malignant neoplasm of unspecified part of unspecified bronchus or lung (principal); J91.0 Malignant pleural effusion

== ENCOUNTER → 2016-12-15 | Outpatient (REF) | payer MEDICARE, MEDICAID | LOC: M LAB REF 17:17 | PROVIDERS: ATTEND Internal Medicine Medical Oncology | DX: D64.9 Anemia, unspecified (principal) ==

== ENCOUNTER 2016-12-16 08:48 | Outpatient (CLI) | payer MEDICARE, MEDICAID ==
[2016-12-16] MEDS ORDERED: MUPIROCIN 2% OINT 22 GM TUBE TOP ONE (09:00)
[2016-12-16] MEDS ORDERED: VANCOMYCIN HCL 1,000 MG, VIAL MATE ADAPTER 1 EACH in D5W 250 ML IV ONE (09:00)
[2016-12-16] MEDS ORDERED: ACETAMINOPHEN TAB 650MG DOSE (2X325MG) PO ONE (09:30)
[2016-12-16] MEDS ORDERED: diphenhydrAMINE 50 MG CAP PO ONE (09:30)
[2016-12-16] MEDS ORDERED: VANCOMYCIN 1000 MG/20 ML VIAL (J3370) As Ordered ONE (09:43)
[2016-12-16] MEDS ORDERED: D5W/0.9% SODIUM CHLORIDE 1,000 ML IV SCH (10:00)
[2016-12-16] MEDS ORDERED: NS 1,000 ML IV SCH (10:15)
[2016-12-16] MEDS ORDERED: MIDAZOLAM INJ 2 MG/2 ML VIAL (J2250) As Ordered ONE (10:15)
[2016-12-16] MEDS ORDERED: ACETAMINOPHEN 325 MG TAB As Ordered ONE (11:08)
[2016-12-16 11:15] VITALS: BP 127/81
--- NOTE | 2016-12-16 18:59 | RO ---
DATE OF PROCEDURE: 12/16/2016 PREPROCEDURE DIAGNOSIS: Recurrent pleural effusion, resolved now with retained PleurX catheter. POSTPROCEDURE DIAGNOSIS: Recurrent pleural effusion, resolved now with retained PleurX catheter. PROCEDURE: Removal of right PleurX catheter. SURGEON: Dr. Daniel Martínez MINING TECHNICIAN: None. ANESTHESIA: DESCRIPTION OF PROCEDURE: Under satisfactory moderate sedation eventually achieved with 4 mg of Versed. Patient was prepped and draped in the usual sterile fashion. The sewing ring could be palpated and a transverse incision was made across it. The catheter was located and the sewing ring was eventually located a little bit more proximal to the incision. Sewing ring was dissected free. Catheter was pulled from the chest and cut at the exit skin level and pulled through the incision. After achieving adequate hemostasis, the incision was closed with running #4-0 Monocryl subcuticular suture. Patient tolerated the procedure well and left the operating room in satisfactory condition to the recovery room.
== END 2016-12-16 16:52 | disposition home or self-care (01) ==
LOC: M RROUT 08:48 → M OPP 08:48 → M RROUT 16:52
PROVIDERS: ATTEND Thoracic Surgery (Cardiothoracic Vascular Surgery)
DX: D64.9 Anemia, unspecified (principal); C34.11 Malignant neoplasm of upper lobe, right bronchus or lung; J43.9 Emphysema, unspecified; J45.909 Unspecified asthma, uncomplicated; E78.00 Pure hypercholesterolemia, unspecified; F32.9 Major depressive disorder, single episode, unspecified; F41.9 Anxiety disorder, unspecified; E11.9 Type 2 diabetes mellitus without complications; E03.9 Hypothyroidism, unspecified; I10 Essential (primary) hypertension; K21.9 Gastro-esophageal reflux disease without esophagitis; G47.30 Sleep apnea, unspecified; K58.9 Irritable bowel syndrome, unspecified; M19.90 Unspecified osteoarthritis, unspecified site; I25.10 Atherosclerotic heart disease of native coronary artery without angina pectoris; Z86.010 Personal history of colon polyps; I63.9 Cerebral infarction, unspecified; Z80.8 Family history of malignant neoplasm of other organs or systems; F17.210 Nicotine dependence, cigarettes, uncomplicated; Z88.1 Allergy status to other antibiotic agents; Z88.0 Allergy status to penicillin; Z88.8 Allergy status to other drugs, medicaments and biological substances; Z88.2 Allergy status to sulfonamides
CPT/HCPCS: 32552; 36430; J2250; J3370; P9016

== ENCOUNTER → 2016-12-24 | Outpatient (CLI) | payer MEDICARE, MEDICAID ==
--- NOTE | 2016-12-24 09:20 | REP ---
CHEST, TWO VIEWS: HISTORY: Malignant pleural effusion. COMPARISON: 12/14/2016. A parenchymal density is present in the right upper lobe unchanged compared to the previous study. Pleural thickening is present along the lower right lateral hemithorax. The left lung is clear. The heart is normal in size. The pulmonary vasculature is normal in appearance. There is an old compression fracture of a lower thoracic vertebral body. IMPRESSION: Right upper lobe parenchymal density unchanged compared to the previous study. Signed by Santi Patel MD 12/24/2016 09:28 A
== END ==
LOC: M SMT 08:21
PROVIDERS: ATTEND Thoracic Surgery (Cardiothoracic Vascular Surgery)
DX: R91.8 Other nonspecific abnormal finding of lung field (principal); J91.0 Malignant pleural effusion

== ENCOUNTER → 2017-01-27 | Outpatient (REF) | payer MEDICARE, MEDICAID | LOC: M LAB REF 15:37 | PROVIDERS: ATTEND Internal Medicine Medical Oncology | DX: C34.11 Malignant neoplasm of upper lobe, right bronchus or lung (principal); C78.2 Secondary malignant neoplasm of pleura; E03.9 Hypothyroidism, unspecified ==

== ENCOUNTER → 2017-02-09 | Outpatient (CLI) | payer MEDICARE, MEDICAID ==
--- NOTE | 2017-02-09 21:38 | REP ---
Whole body PET CT scan: Comparisons are the chest CT dated 12/29/2016 and whole body PET CT scan dated 09/16/2016. Scanning is performed from skull base to the upper thighs. Neck and supraclavicular areas: There are no hypermetabolic foci. This is unchanged. Chest: There is a large right upper lobe mass and this has slightly decreased in size from the prior PET scan. There is a focus of hypermetabolic uptake in the superior portion of this mass demonstrating a standard uptake value of 17, 0.1. The remainder of this mass demonstrates a standard uptake value of 6.7. There are new hypermetabolic mediastinal and bilateral hilar nodes that were not hypermetabolic previously. Maximal standard uptake value is in a right hilar node measures 16.8. This node is enlarged. Maximal standard uptake value in an aorticopulmonic window mediastinal node is 7.6. The at maximal standard uptake value in a left hilar normal size node is 7.5. There are multiple other known lung nodules bilaterally, none of which demonstrate hypermetabolic uptake, as previously. The previous right pleural effusion has resolved. There is circumferential pleural thickening in the right hemithorax as previously. There are a few scattered foci of hypermetabolic uptake in the thickened pleura with a maximal standard uptake value measuring 4.7. Abdomen, pelvis and upper thighs: There are no hypermetabolic foci, as previously. Impression: The patient's known left upper lobe mass appears slightly decreased in size, however, there is persisting hypermetabolic uptake as described. There are multiple new hypermetabolic foci in bilateral hilar and mediastinal nodes, not present previously. There are multiple other known lung nodules that demonstrate no hypermetabolic uptake. The previous right pleural effusion has resolved. There is circumferential pleural thickening in the right hemithorax as previously. There are a few scattered foci of hypermetabolic uptake in the thickened pleura with a maximal standard uptake value measuring 4.7. Signed by Floyd Bowen MD 02/09/2017 09:30 P
== END ==
LOC: M PLARAD 08:22
PROVIDERS: ATTEND Internal Medicine Medical Oncology
DX: Z08 Encounter for follow-up examination after completed treatment for malignant neoplasm (principal); Z85.118 Personal history of other malignant neoplasm of bronchus and lung; C78.2 Secondary malignant neoplasm of pleura; Z87.891 Personal history of nicotine dependence
CPT/HCPCS: 78815; A9552

== ENCOUNTER → 2017-02-17 | Outpatient (REF) | payer MEDICARE, MEDICAID | LOC: M LAB REF 16:40 | PROVIDERS: ATTEND Internal Medicine Medical Oncology | DX: C34.90 Malignant neoplasm of unspecified part of unspecified bronchus or lung (principal) ==

== ENCOUNTER → 2017-02-19 | Outpatient (CLI) | payer MEDICARE, MEDICAID ==
[2017-02-19 12:15] LABS: BASO % 0.6 % (0.0-1.0); EOS # 0.1 10^3/uL (0.0-0.50); EOS % 2.1 % (0.0-3.0); IMMATURE GRANULOCYTE % 0.3 % (0-0); LYMPH # 0.8 10^3/uL (1.5-4.5); LYMPH % 12.7 % (24.0-44.0); MEAN CORPUSCULAR HEMOGLOBIN 30.7 pg (27.0-33.0); MEAN CORPUSCULAR HGB CONC 31.4 g/dl (32.0-36.5); MEAN CORPUSCULAR VOLUME 97.9 fl (80.0-96.0); MONO # 0.5 10^3/uL (0.0-0.8); MONO % 8.7 % (0.0-5.0); NEUTROPHILS # 4.7 10^3/uL (1.8-7.7); NEUTROPHILS % 75.6 % (36.0-66.0); PLATELET COUNT, AUTOMATED 284 10^3/uL (150-450); RED CELL DISTRIBUTION WIDTH 14.4 % (11.5-14.5); WHITE BLOOD COUNT 6.2 10^3/uL (4.0-10.0)
[2017-02-19 12:37] LABS: ALBUMIN 3.1 GM/DL (3.2-5.2); ALBUMIN/GLOBULIN RATIO 0.82 (1.00-1.93); ALKALINE PHOSPHATASE 105 U/L (45-117); ALT/SGPT 11 U/L (12-78); ANION GAP 8 MEQ/L (8-16); AST/SGOT 6 U/L (7-37); BILIRUBIN,TOTAL 0.4 MG/DL (0.2-1.0); BLOOD UREA NITROGEN 11 MG/DL (7-18); CALCIUM LEVEL 8.7 MG/DL (8.8-10.2); CARBON DIOXIDE LEVEL 28 MEQ/L (21-32); CHLORIDE LEVEL 105 MEQ/L (98-107); CREATININE FOR GFR 0.89 MG/DL (0.55-1.02); FREE T4 1.36 NG/DL (0.76-1.46); GLOMERULAR FILTRATION RATE > 60.0 (>39); GLUCOSE, FASTING 99 MG/DL (83-110); POTASSIUM SERUM 4.8 MEQ/L (3.5-5.1); SODIUM LEVEL 141 MEQ/L (136-145); TOTAL PROTEIN 6.9 GM/DL (6.4-8.2)
== END ==
LOC: M SMT 07:53
PROVIDERS: ATTEND Family Medicine
DX: E03.9 Hypothyroidism, unspecified (principal); E11.42 Type 2 diabetes mellitus with diabetic polyneuropathy; C34.11 Malignant neoplasm of upper lobe, right bronchus or lung

== ENCOUNTER → 2017-04-13 | Outpatient (CLI) | payer MEDICARE, MEDICAID | LOC: M PLARAD 08:38 | DX: Z85.118 Personal history of other malignant neoplasm of bronchus and lung (principal) | CPT/HCPCS: 78815 ==

== ENCOUNTER → 2017-04-22 | Outpatient (CLI) | payer MEDICARE, MEDICAID ==
[~2017-04-22] MED LIST changes: -/ADVA50050 IN; -ADV250INH INH; -ALBU17IN INH; -ALBU83IN INH; -ALEV220T26 PO; -AMLO2.5T PO; -AMLO5TAB2 PO; -ASPI81TA21 PO; -ATOR40TA75 PO; -AVEL1TAB3 PO; -BABY81CH OR; -BUSP5TA PO; -CALC1TAB21 PO; -CULT10CA2 PO; -CULTURELLE PO; -CULTURELLE PR; -DAY1CAP PO; -FERR1TAB8 PO; -FISH1000 PO; -FLON1SPR; -GLIM2TAB PO; -IMOD2TAB16 PO; -IMODLIQ6 PO; +ISOVUE-370 76% 100ML VIAL (Q9967) As Ordered; -JANU100T PO; -LEVO100T5 PO; -LEVO100T7 OR; -LEVO112T OR; -LEVO137T14 PO; -LEVO750T13 PO; -LEVOTAB10 PO; -NEUR100C PO; -NITR0.4S SL; -NITR4TASL SL; -OMEP40CA2 PO; -ONDA8TAB7 PO; -PAROXETINE HCL PO; -PRED10TA2 PO; -PROC10TA PO; -RAMI10CA PO; -RANI150C OR; -SLOWTAB2 PO; -TIZA4CAP3 PO; -VARE1TA PO; -VENL75CA2 PO; -VENL75TA2 PO; -VITA10006 PO; -VITA100072 PO; -VITA200016 PO; -ZOCO40TA OR; -[UNRECOGNIZED DRUG - CODE] PO; -[UNRECOGNIZED DRUG - OTHER]; -[UNRECOGNIZED DRUG - OTHER] INH; -[UNRECOGNIZED DRUG - OTHER] PO
== END ==
LOC: M RAD 16:44
DX: C34.90 Malignant neoplasm of unspecified part of unspecified bronchus or lung (principal)
CPT/HCPCS: Q9967

== ENCOUNTER → 2017-04-27 | Outpatient (REF) | payer MEDICARE, MEDICAID ==
[2017-04-27 14:23] LABS: CARCINOEMBRYONIC ANTIGEN 8.6 NG/ML (<2.5)
== END ==
LOC: M LAB REF 13:46
DX: C34.90 Malignant neoplasm of unspecified part of unspecified bronchus or lung (principal)
CPT/HCPCS: 82378

== ENCOUNTER 2017-05-21 18:37 | Observation (INO) | payer MEDICARE, MEDICAID ==
[2017-05-21] MEDS: ADVAIR HFA 115/21MCG INHALER INH ×2 (20:00)
[2017-05-21 20:33] LABS: BASO % 0.3 % (0.0-1.0); EOS # 0.1 10^3/uL (0.0-0.50); EOS % 0.9 % (0.0-3.0); HEMATOCRIT 36.5 % (36.0-47.0); HEMOGLOBIN 11.8 g/dl (12.0-16.0); IMMATURE GRANULOCYTE % 0.6 % (0-3.0); LYMPH % 8.7 % (24.0-44.0); MEAN CORPUSCULAR HEMOGLOBIN 30.5 pg (27.0-33.0); MEAN CORPUSCULAR HGB CONC 32.3 g/dl (32.0-36.5); MEAN CORPUSCULAR VOLUME 94.3 fl (80.0-96.0); MONO # 0.1 10^3/uL (0.0-0.8); MONO % 1.2 % (0.0-5.0); NEUTROPHILS # 10.6 10^3/uL (1.8-7.7); NEUTROPHILS % 88.3 % (36.0-66.0); PLATELET COUNT, AUTOMATED 261 10^3/uL (150-450); RED BLOOD COUNT 3.87 10^6/uL (4.00-5.40); RED CELL DISTRIBUTION WIDTH 14.6 % (11.5-14.5)
[2017-05-21] MEDS: NS 500 ML IV ×2 (20:38)
[2017-05-21 20:44] LABS: INR 0.92; PROTHROMBIN TIME 12.4 SECONDS (12.4-14.5)
[2017-05-21 20:45] LABS: PARTIAL THROMBOPLASTIN TIME 23.8 SECONDS (26.8-37.9)
[2017-05-21] MEDS: HumaLOG INSULIN (NovoLOG) PER UNIT SC ×2 (21:00)
[2017-05-21 21:06] LABS: LACTIC ACID SEPSIS PROTOCOL 1.2 MMOL/L (0.4-2.0)
[2017-05-21 21:07] LABS: ANION GAP 9 MEQ/L (8-16); BLOOD UREA NITROGEN 21 MG/DL (7-18); CARBON DIOXIDE LEVEL 28 MEQ/L (21-32); CHLORIDE LEVEL 104 MEQ/L (98-107); CPK CREATINE PHOSPHOKINASE 48 U/L (26-192); CREATININE FOR GFR 0.79 MG/DL (0.55-1.30); GLOMERULAR FILTRATION RATE > 60.0 (>39); GLUCOSE, FASTING 108 MG/DL (70-100); MB/CK RELATIVE INDEX 2.08 (< OR =4); POTASSIUM SERUM 4.3 MEQ/L (3.5-5.1); SODIUM LEVEL 141 MEQ/L (136-145); TROPONIN I < 0.02 NG/ML (< 0.10)
[2017-05-21 21:57] LABS: ABG BASE EXCESS 2.5 (-2.0-2.0); ABG HCO3 26.9 MEQ/L (22.0-26.0); ABG O2 SATURATION 95.5 % (95.0-99.0); ABG PARTIAL PRESSURE O2 79.1 mmHg (75.0-100.0); ABG STANDARD HCO3 26.6 MEQ/L (22.0-26.0); ABG TOTAL CO2 28.2 MEQ/L (23.0-31.0); ABG pH (ARTERIAL) 7.435 UNITS (7.350-7.450)
[2017-05-21 22:40] LABS: APPEARANCE, URINE CLEAR (CLEAR); BACTERIA, URINE AUTO NEGATIVE (NEGATIVE); BILIRUBIN, URINE AUTO NEGATIVE (NEGATIVE); BLOOD, URINE BLOOD NEGATIVE (NEGATIVE); COLOR, URINE YELLOW (YELLOW); GLUCOSE, URINE (UA) AUTO NEGATIVE (NEGATIVE); KETONE, URINE AUTO NEGATIVE (NEGATIVE); LEUKOCYTE ESTERASE, URINE AUTO NEGATIVE (NEGATIVE); MUCUS, URINE SMALL (NEGATIVE); NITRITE, URINE AUTO NEGATIVE (NEGATIVE); PROTEIN, URINE AUTO NEGATIVE (NEGATIVE); RBC, URINE AUTO 0 /HPF (0-3); SPECIFIC GRAVITY URINE AUTO 1.009 (1.002-1.035); SQUAMOUS EPITHELIAL CELL UR AU 0 /HPF (0-6); UROBILINOGEN, URINE AUTO 0.2 mg/dL (0.0-2.0); WBC, URINE AUTO 0 /HPF (0-3)
[2017-05-21] MEDS ORDERED: ISOVUE-370 76% 100ML VIAL (Q9967) As Ordered ×2 (23:07)
[2017-05-21] MEDS ORDERED: GLUCAGON FOR INJ 1 MG VIAL (J1610) SC ×2 (23:15)
[2017-05-21] MEDS ORDERED: ONDANSETRON 4 MG TAB (S0181) PO ×2 (23:15)
[2017-05-21] MEDS ORDERED: ACETAMINOPHEN TAB 650MG DOSE (2X325MG) PO ×2 (23:15)
[2017-05-21] MEDS ORDERED: NITROGLYCERIN 0.4 MG SUBL TABLET SL ×2 (23:15)
[2017-05-21] MEDS ORDERED: PROCHLORPERAZINE 5 MG TAB (S0183) PO ×2 (23:15)
[2017-05-21] MEDS ORDERED: DEXTROSE 50% 50 ML SYRINGE IV ×2 (23:15)
[2017-05-21] MEDS ORDERED: IPRATROPIUM 0.5MG/ALBUTEROL 2.5MG INH SOL UD 3ML (DUONEB)(J7620) NEB ×2 (23:15)
[2017-05-21] MEDS ORDERED: busPIRone 5 MG TAB PO ×2 (23:15)
[2017-05-21] MEDS ORDERED: FLUTICASONE PROP 0.05% NASAL SPRAY 16 GM (FLONASE) ×2 (23:15)
[2017-05-21] MEDS ORDERED: GLUCOSE 4 GM CHEW TABLET PO ×2 (23:15)
[2017-05-22] LABS: T UPTAKE 33 % (30-39); THYROXINE (T4) 12.1 UG/DL (4.5-12.0)
[2017-05-22] MEDS: ATORVASTATIN 20 MG TAB PO ×4 (01:24→21:03)
[2017-05-22] MEDS: FERROUS SULFATE 325MG TAB PO ×6 (01:24→21:03)
[2017-05-22] MEDS: OMEPRAZOLE 20 MG CAP PO ×6 (01:24→21:03)
[2017-05-22 01:29] LABS: BEDSIDE GLUCOSE 110 MG/DL (83-110)
[2017-05-22] MEDS: VENLAFAXINE **XR** 75MG CAPSULE PO ×4 (01:30→21:03)
[2017-05-22] MEDS: IPRATROPIUM 0.5MG/ALBUTEROL 2.5MG INH SOL UD 3ML (DUONEB)(J7620) NEB ×8 (02:10→20:00)
[2017-05-22] MEDS ORDERED: MAGIC MOUTHWASH SUSPENSION BTL SS ×2 (02:15)
[2017-05-22] MEDS: LOPERAMIDE 2 MG CAP PO ×2 (02:17)
[2017-05-22 02:28] LABS: HEMOGLOBIN 10.9 g/dl (12.0-16.0); MEAN CORPUSCULAR HEMOGLOBIN 30.4 pg (27.0-33.0); MEAN CORPUSCULAR HGB CONC 32.1 g/dl (32.0-36.5); MEAN CORPUSCULAR VOLUME 94.7 fl (80.0-96.0); PLATELET COUNT, AUTOMATED 229 10^3/uL (150-450); RED BLOOD COUNT 3.59 10^6/uL (4.00-5.40); RED CELL DISTRIBUTION WIDTH 14.6 % (11.5-14.5); WHITE BLOOD COUNT 9.8 10^3/uL (4.0-10.0)
[2017-05-22 02:50] LABS: ANION GAP 9 MEQ/L (8-16); BLOOD UREA NITROGEN 18 MG/DL (7-18); CALCIUM LEVEL 7.9 MG/DL (8.8-10.2); CARBON DIOXIDE LEVEL 28 MEQ/L (21-32); CHLORIDE LEVEL 104 MEQ/L (98-107); CPK CREATINE PHOSPHOKINASE 37 U/L (26-192); CREATININE FOR GFR 0.78 MG/DL (0.55-1.30); GLOMERULAR FILTRATION RATE > 60.0 (>39); GLUCOSE, FASTING 100 MG/DL (70-100); POTASSIUM SERUM 4.2 MEQ/L (3.5-5.1); SODIUM LEVEL 141 MEQ/L (136-145); TROPONIN I < 0.02 NG/ML (< 0.10)
[2017-05-22] MEDS: HEPARIN SOD (PORCINE) 5000 UNITS/ML VIAL SC ×6 (05:07→21:03)
[2017-05-22] MEDS: HumaLOG INSULIN (NovoLOG) PER UNIT SC ×8 (07:20→20:59)
[2017-05-22] MEDS: ADVAIR HFA 115/21MCG INHALER INH ×4 (07:37→21:04)
[2017-05-22] MEDS ORDERED: LOPERAMIDE 2 MG CAP PO ×2 (09:00)
[2017-05-22] MEDS: FOLIC ACID 1 MG TAB PO ×2 (09:00)
[2017-05-22] MEDS: ASPIRIN 81 MG ENTERIC TAB PO ×2 (10:27)
[2017-05-22] MEDS: VITAMIN D 1,000 INTERNATIONAL UNITS TABLET PO ×2 (10:27)
[2017-05-22] MEDS: amLODIPine 5 MG TAB PO ×2 (10:27)
[2017-05-22] MEDS: CYANOCOBALAMIN 500 MCG TAB PO ×2 (10:27)
[2017-05-22] MEDS: LEVOTHYROXINE 150MCG TABLET (0.15MG) PO ×2 (10:28)
[2017-05-22 11:38] LABS: BEDSIDE GLUCOSE 130 MG/DL (83-110)
[2017-05-22] MEDS: LevoFLOXacin 750 MG TABLET PO ×2 (12:17)
[2017-05-22] MEDS: MAGIC MOUTHWASH SUSPENSION BTL SSP ×4 (12:25→18:41)
[2017-05-22 16:53] LABS: C REACTIVE PROTEIN QUANTITATIV 7.19 MG/DL (0.00-0.30)
[2017-05-22 17:00] LABS: BEDSIDE GLUCOSE 114 MG/DL (83-110)
[2017-05-22 18:32] LABS: ERYTHROCYTE SEDIMENTATION RATE 60 mm/hr (0-30)
[2017-05-22 21:57] LABS: BEDSIDE GLUCOSE 148 MG/DL (83-110)
[2017-05-23] MEDS: IPRATROPIUM 0.5MG/ALBUTEROL 2.5MG INH SOL UD 3ML (DUONEB)(J7620) NEB ×8 (02:00→20:00)
[2017-05-23 04:08] LABS: HEMATOCRIT 32.4 % (36.0-47.0); HEMOGLOBIN 10.2 g/dl (12.0-16.0); MEAN CORPUSCULAR HEMOGLOBIN 30.2 pg (27.0-33.0); MEAN CORPUSCULAR HGB CONC 31.5 g/dl (32.0-36.5); MEAN CORPUSCULAR VOLUME 95.9 fl (80.0-96.0); PLATELET COUNT, AUTOMATED 197 10^3/uL (150-450); RED BLOOD COUNT 3.38 10^6/uL (4.00-5.40); RED CELL DISTRIBUTION WIDTH 14.6 % (11.5-14.5); WHITE BLOOD COUNT 7.4 10^3/uL (4.0-10.0)
[2017-05-23 04:27] LABS: ANION GAP 7 MEQ/L (8-16); BLOOD UREA NITROGEN 20 MG/DL (7-18); CALCIUM LEVEL 8.2 MG/DL (8.8-10.2); CARBON DIOXIDE LEVEL 27 MEQ/L (21-32); CHLORIDE LEVEL 106 MEQ/L (98-107); CREATININE FOR GFR 0.85 MG/DL (0.55-1.30); GLOMERULAR FILTRATION RATE > 60.0 (>39); GLUCOSE, FASTING 126 MG/DL (70-100); SODIUM LEVEL 140 MEQ/L (136-145)
[2017-05-23] MEDS: HEPARIN SOD (PORCINE) 5000 UNITS/ML VIAL SC ×6 (05:10→21:30)
[2017-05-23] MEDS: LevoFLOXacin 750 MG TABLET PO ×2 (05:10)
[2017-05-23] MEDS: ADVAIR HFA 115/21MCG INHALER INH ×4 (07:45→20:17)
[2017-05-23] MEDS: HumaLOG INSULIN (NovoLOG) PER UNIT SC ×8 (08:00→21:00)
[2017-05-23] MEDS: MAGIC MOUTHWASH SUSPENSION BTL SSP ×6 (08:00→17:59)
[2017-05-23] MEDS: amLODIPine 5 MG TAB PO ×2 (09:42)
[2017-05-23] MEDS: FOLIC ACID 1 MG TAB PO ×2 (09:42)
[2017-05-23] MEDS: FERROUS SULFATE 325MG TAB PO ×4 (09:42→21:29)
[2017-05-23] MEDS: ASPIRIN 81 MG ENTERIC TAB PO ×2 (09:42)
[2017-05-23] MEDS: CYANOCOBALAMIN 500 MCG TAB PO ×2 (09:43)
[2017-05-23] MEDS: VITAMIN D 1,000 INTERNATIONAL UNITS TABLET PO ×2 (09:43)
[2017-05-23] MEDS: LEVOTHYROXINE 150MCG TABLET (0.15MG) PO ×2 (09:43)
[2017-05-23] MEDS: OMEPRAZOLE 20 MG CAP PO ×4 (09:43→21:29)
[2017-05-23 12:02] LABS: BEDSIDE GLUCOSE 72 MG/DL (83-110)
[2017-05-23 17:59] LABS: BEDSIDE GLUCOSE 152 MG/DL (83-110)
[2017-05-23 19:50] LABS: BEDSIDE GLUCOSE 127 MG/DL (83-110)
[2017-05-23] MEDS: VENLAFAXINE **XR** 75MG CAPSULE PO ×2 (21:29)
[2017-05-23] MEDS: ATORVASTATIN 20 MG TAB PO ×2 (21:30)
[2017-05-24] MEDS: IPRATROPIUM 0.5MG/ALBUTEROL 2.5MG INH SOL UD 3ML (DUONEB)(J7620) NEB ×4 (01:22→08:00)
[2017-05-24 05:05] LABS: HEMATOCRIT 32.1 % (36.0-47.0); MEAN CORPUSCULAR HEMOGLOBIN 29.3 pg (27.0-33.0); MEAN CORPUSCULAR HGB CONC 31.2 g/dl (32.0-36.5); MEAN CORPUSCULAR VOLUME 94.1 fl (80.0-96.0); PLATELET COUNT, AUTOMATED 208 10^3/uL (150-450); RED BLOOD COUNT 3.41 10^6/uL (4.00-5.40); RED CELL DISTRIBUTION WIDTH 14.3 % (11.5-14.5); WHITE BLOOD COUNT 4.6 10^3/uL (4.0-10.0)
[2017-05-24 05:26] LABS: ANION GAP 7 MEQ/L (8-16); BLOOD UREA NITROGEN 17 MG/DL (7-18); CALCIUM LEVEL 8.4 MG/DL (8.8-10.2); CARBON DIOXIDE LEVEL 28 MEQ/L (21-32); CHLORIDE LEVEL 104 MEQ/L (98-107); CREATININE FOR GFR 0.79 MG/DL (0.55-1.30); GLOMERULAR FILTRATION RATE > 60.0 (>39); GLUCOSE, FASTING 108 MG/DL (70-100); POTASSIUM SERUM 3.9 MEQ/L (3.5-5.1); SODIUM LEVEL 139 MEQ/L (136-145)
[2017-05-24] MEDS: LevoFLOXacin 750 MG TABLET PO ×2 (06:28)
[2017-05-24] MEDS: HEPARIN SOD (PORCINE) 5000 UNITS/ML VIAL SC ×2 (06:29)
[2017-05-24] MEDS: ADVAIR HFA 115/21MCG INHALER INH ×2 (07:58)
[2017-05-24] MEDS: VITAMIN D 1,000 INTERNATIONAL UNITS TABLET PO ×2 (08:00)
[2017-05-24] MEDS: ASPIRIN 81 MG ENTERIC TAB PO ×2 (08:00)
[2017-05-24] MEDS: CYANOCOBALAMIN 500 MCG TAB PO ×2 (08:00)
[2017-05-24] MEDS: FOLIC ACID 1 MG TAB PO ×2 (08:01)
[2017-05-24] MEDS: FERROUS SULFATE 325MG TAB PO ×2 (08:01)
[2017-05-24] MEDS: HumaLOG INSULIN (NovoLOG) PER UNIT SC ×2 (08:01)
[2017-05-24] MEDS: OMEPRAZOLE 20 MG CAP PO ×2 (08:01)
[2017-05-24] MEDS: LEVOTHYROXINE 150MCG TABLET (0.15MG) PO ×2 (08:02)
[2017-05-24] MEDS: amLODIPine 5 MG TAB PO ×2 (08:02)
[2017-05-24] MEDS: MAGIC MOUTHWASH SUSPENSION BTL SSP ×2 (08:02)
== END 2017-05-24 10:32 | disposition home or self-care (01) ==
LOC: M PCU 05-22 01:08 → M ED 18:37 → M ED INP 18:38
DX: J80 Acute respiratory distress syndrome (principal); C34.11 Malignant neoplasm of upper lobe, right bronchus or lung; I10 Essential (primary) hypertension; E11.9 Type 2 diabetes mellitus without complications; E03.9 Hypothyroidism, unspecified; D72.829 Elevated white blood cell count, unspecified; K21.9 Gastro-esophageal reflux disease without esophagitis; G47.33 Obstructive sleep apnea (adult) (pediatric); E78.4 Other hyperlipidemia; K58.8 Other irritable bowel syndrome; Z86.73 Personal history of transient ischemic attack (TIA), and cerebral infarction without residual deficits; K12.31 Oral mucositis (ulcerative) due to antineoplastic therapy; Z79.899 Other long term (current) drug therapy; Z79.82 Long term (current) use of aspirin; F17.210 Nicotine dependence, cigarettes, uncomplicated; F32.9 Major depressive disorder, single episode, unspecified
CPT/HCPCS: Q9967

== ENCOUNTER → 2017-05-28 | Outpatient (CLI) | payer MEDICARE, MEDICAID ==
[2017-05-28 09:21] LABS: BASO % 0.7 % (0.0-1.0); EOS % 0.7 % (0.0-3.0); HEMATOCRIT 33.4 % (36.0-47.0); HEMOGLOBIN 10.7 g/dl (12.0-16.0); IMMATURE GRANULOCYTE % 0.7 % (0-3.0); LYMPH # 0.6 10^3/uL (1.5-4.5); LYMPH % 13.5 % (24.0-44.0); MEAN CORPUSCULAR HEMOGLOBIN 30.4 pg (27.0-33.0); MEAN CORPUSCULAR VOLUME 94.9 fl (80.0-96.0); MONO # 0.8 10^3/uL (0.0-0.8); MONO % 17.9 % (0.0-5.0); NEUTROPHILS # 3.1 10^3/uL (1.8-7.7); NEUTROPHILS % 66.5 % (36.0-66.0); PLATELET COUNT, AUTOMATED 261 10^3/uL (150-450); RED BLOOD COUNT 3.52 10^6/uL (4.00-5.40); RED CELL DISTRIBUTION WIDTH 14.5 % (11.5-14.5); WHITE BLOOD COUNT 4.6 10^3/uL (4.0-10.0)
[2017-05-28 09:44] LABS: FREE T4 1.01 NG/DL (0.76-1.46)
[2017-05-28 10:05] LABS: ESTIMATED AVERAGE GLUCOSE 143 MG/DL (60-110); HEMOGLOBIN A1c 6.6 %
== END ==
LOC: M SMT 08:26
DX: E11.42 Type 2 diabetes mellitus with diabetic polyneuropathy (principal); E03.9 Hypothyroidism, unspecified; J16.8 Pneumonia due to other specified infectious organisms
CPT/HCPCS: 84443

== ENCOUNTER → 2017-06-08 | Outpatient (REF) | payer MEDICARE, MEDICAID ==
[2017-06-08 19:41] LABS: CARCINOEMBRYONIC ANTIGEN 14.4 NG/ML (<2.5)
== END ==
LOC: M LAB REF 17:51
DX: C34.90 Malignant neoplasm of unspecified part of unspecified bronchus or lung (principal)
CPT/HCPCS: 82378

== ENCOUNTER → 2017-07-27 | Outpatient (REF) | payer MEDICARE, MEDICAID ==
[2017-07-27 18:41] LABS: CARCINOEMBRYONIC ANTIGEN 10.9 NG/ML (<2.5)
[2017-07-27 19:04] LABS: APPEARANCE, URINE CLEAR (CLEAR); BACTERIA, URINE AUTO NEGATIVE (NEGATIVE); BILIRUBIN, URINE AUTO NEGATIVE (NEGATIVE); BLOOD, URINE BLOOD NEGATIVE (NEGATIVE); COLOR, URINE YELLOW (YELLOW); GLUCOSE, URINE (UA) AUTO NEGATIVE (NEGATIVE); KETONE, URINE AUTO NEGATIVE (NEGATIVE); LEUKOCYTE ESTERASE, URINE AUTO NEGATIVE (NEGATIVE); MUCUS, URINE SMALL (NEGATIVE); NITRITE, URINE AUTO NEGATIVE (NEGATIVE); PROTEIN, URINE AUTO NEGATIVE (NEGATIVE); RBC, URINE AUTO 1 /HPF (0-3); SPECIFIC GRAVITY URINE AUTO 1.014 (1.002-1.035); SQUAMOUS EPITHELIAL CELL UR AU 0 /HPF (0-6); UROBILINOGEN, URINE AUTO 0.2 mg/dL (0.0-2.0); WBC, URINE AUTO 5 /HPF (0-3)
== END ==
LOC: M LAB REF 17:12
DX: C34.11 Malignant neoplasm of upper lobe, right bronchus or lung (principal); C78.2 Secondary malignant neoplasm of pleura

== ENCOUNTER → 2017-07-27 | Outpatient (CLI) | payer MEDICARE, MEDICAID | LOC: M RAD 14:47 | DX: M54.9 Dorsalgia, unspecified (principal); R06.00 Dyspnea, unspecified; C34.11 Malignant neoplasm of upper lobe, right bronchus or lung; C78.2 Secondary malignant neoplasm of pleura | CPT/HCPCS: Q9967 ==

== ENCOUNTER → 2017-07-29 | Outpatient (CLI) | payer MEDICARE, MEDICAID | LOC: M RAD 10:24 | DX: C34.90 Malignant neoplasm of unspecified part of unspecified bronchus or lung (principal) | CPT/HCPCS: 78306 ==

== ENCOUNTER → 2017-08-10 | Outpatient (CLI) | payer MEDICARE, MEDICAID | LOC: M PLARAD 12:08 | DX: C34.11 Malignant neoplasm of upper lobe, right bronchus or lung (principal) | CPT/HCPCS: 78815 ==

== ENCOUNTER → 2017-08-18 | Outpatient (CLI) | payer MEDICARE, MEDICAID | LOC: M RAD 15:00 | DX: C34.90 Malignant neoplasm of unspecified part of unspecified bronchus or lung (principal); R42 Dizziness and giddiness; R55 Syncope and collapse | CPT/HCPCS: Q9967 ==

== ENCOUNTER → 2017-11-18 | Outpatient (REF) | payer MEDICARE, OTHER, MEDICAID | LOC: M LAB REF 11:22 | DX: C34.11 Malignant neoplasm of upper lobe, right bronchus or lung (principal); C78.2 Secondary malignant neoplasm of pleura; C77.1 Secondary and unspecified malignant neoplasm of intrathoracic lymph nodes; F32.9 Major depressive disorder, single episode, unspecified; F41.9 Anxiety disorder, unspecified | CPT/HCPCS: 87205 ==